=== PATIENT | male | born 1945 | race Caucasian/White ===

== ENCOUNTER → 2016-06-09 | Outpatient (CLI) | payer OTHER | LOC: BHFA 14:30 | PROVIDERS: ATTEND Internal Medicine Interventional Cardiology | DX: I49.1 Atrial premature depolarization (principal); I49.3 Ventricular premature depolarization ==

== ENCOUNTER → 2016-06-28 | Outpatient (CLI) | payer OTHER | LOC: BHFA 11:00 | PROVIDERS: ATTEND Internal Medicine Cardiovascular Disease | DX: R06.02 Shortness of breath (principal) ==

== ENCOUNTER → 2017-06-08 | Outpatient (CLI) | payer OTHER | LOC: BHFA 13:30 | PROVIDERS: ATTEND Internal Medicine Interventional Cardiology | DX: Z01.810 Encounter for preprocedural cardiovascular examination (principal) | CPT/HCPCS: 78452; 93017; A9500; J2785 ==

== ENCOUNTER 2017-06-12 09:33 | Inpatient (IN) | payer OTHER ==
[2017-06-12] MEDS ORDERED: FAMOTIDINE 20 MG TAB PO ONE (09:35)
[2017-06-12] MEDS ORDERED: diphenhydrAMINE 25 MG CAP PO ONE (09:35)
[2017-06-12] MEDS ORDERED: DIAZEPAM 5 MG TAB PO ONE (09:35)
[2017-06-12] MEDS ORDERED: NS 1,000 ML IV ONE (09:35)
[2017-06-12] MEDS ORDERED: ASPIRIN EC 325 MG TAB PO ONE (09:35)
--- NOTE | 2017-06-12 10:06 | CPEKG ---
Heart Rate: 57 RR Interval: 1053 P-R Interval: 204 QRSD Interval: 78 QT Interval: 416 QTC Interval: 405 P [place]: 19 QRS Norman: 63 T Wave [place]: 55 EKG Severity - NORMAL ECG - EKG Impression: SINUS RHYTHM Electronically Signed By: Darrius Alba 12-Jun-2017 15:55:16
[2017-06-12 10:25] LABS: PLATELET COUNT 208 10^3/uL (150-400)
[2017-06-12 10:33] LABS: INR 0.96 (0.83-1.16)
[2017-06-12] MEDS ORDERED: fentaNYL 100 MCG/2 ML INJ ONE (11:01)
[2017-06-12] MEDS ORDERED: LIDOCAINE 1% 300 MG/30 ML SDV ONE (11:01)
[2017-06-12] MEDS ORDERED: MIDAZOLAM 2 MG/2 ML VIAL ONE (11:02)
[2017-06-12] MEDS ORDERED: IOPAMIDOL (ISOVUE-370) 150 ML BTL IV ONE (11:02)
[2017-06-12] MEDS ORDERED: VERAPAMIL 5 MG/2 ML VIAL ONE ×2 (11:03→12:27)
[2017-06-12] MEDS ORDERED: HEPARIN 10,000 UNIT/10 ML MDV (1,000 UNIT/ML) ONE ×3 (11:03→12:29)
--- NOTE | 2017-06-12 11:03 | PDPROPOC ---
Sedation Plan of Care Sedation Plan of Care: vital signs stable, mental status noted, patient educated of risks, benefits, alternatives, patient can tolerate sedation ASA Classification: ASA 2 Planned drugs: fentanyl, midazolam Mallampati Score: Class 1 Mallampati Reference Image: Patient passed 3-3-2 rule?: Yes
--- NOTE | 2017-06-12 11:03 | PDHPUP ---
History & Physical Update H&P update statement: This history and physical update is based on an assessment of the patient which was completed after admission or registration (within 24 hours), but prior to the surgery/procedure. H&P update: H&P reviewed & patient examined, no change in patient's condition since H&P completed
[2017-06-12] MEDS ORDERED: NITROGLYCERIN/D5W 50 MG/250 ML BOTTLE IV ONE (12:10)
[2017-06-12] MEDS ORDERED: SODIUM BICARBONATE 20 MEQ, LIDOCAINE 1% 10 ML in NORMOSOL-R 1,000 ML MISC ONE (12:10)
[2017-06-12] MEDS ORDERED: MANNITOL 25% 12.5 GM/50 ML VIAL IVP ONE (12:10)
[2017-06-12] MEDS ORDERED: NOREPINEPHRINE BITARTRATE 16 MG in NS 250 ML IV ONE (12:10)
[2017-06-12] MEDS ORDERED: MUPIROCIN 2% 22 GM OINT NS ONE ×2 (12:10→12:15)
[2017-06-12] MEDS ORDERED: VANCOMYCIN PHARMACY TO DOSE MISC ONE (12:10)
[2017-06-12] MEDS ORDERED: PROPOFOL/EMULSION 500 MG/50 ML BOTTLE IV ONE (12:10)
[2017-06-12] MEDS ORDERED: VERAPAMIL 5 MG, NITROGLYCERIN 2.5 MG, HEPARIN 500 UNIT, SODIUM BICARBONATE 0.2 MEQ in L... MISC ONE (12:10)
[2017-06-12] MEDS ORDERED: REMIFENTANIL HCL 1 MG VIAL ONE (12:10)
[2017-06-12] MEDS ORDERED: PHENYLEPHRINE HCL 50 MG in NS 250 ML IV ONE (12:10)
[2017-06-12] MEDS ORDERED: INSULIN REGULAR HUMAN 100 UNIT in NS 100 ML IV ONE (12:10)
[2017-06-12] MEDS ORDERED: fentaNYL 250 MCG/5 ML INJ ONE (12:10)
[2017-06-12] MEDS ORDERED: CITRATE DEXTROSE SOLN 500 ML BAG MISC ONE ×2 (12:10→12:30)
[2017-06-12] MEDS ORDERED: TRANEXAMIC ACID 1,000 MG in NS (SYRINGE) 50 ML IV ONE (12:10)
[2017-06-12] MEDS ORDERED: PROTAMINE SULFATE 50 MG/5 ML VIAL IVP ONE (12:24)
[2017-06-12] MEDS ORDERED: CALCIUM CHLORIDE 1 GM/10 ML INJ ONE ×2 (12:24→12:29)
[2017-06-12] MEDS ORDERED: NA BICARBONATE 50 MEQ/50 ML VIAL ONE (12:25)
[2017-06-12] MEDS ORDERED: MILRINONE/DEXTROSE/100 ML BAG IV ONE (12:25)
[2017-06-12] MEDS ORDERED: DOPamine/DEXTROSE/250 ML BAG IV ONE (12:25)
[2017-06-12] MEDS ORDERED: niCARdipine/NACL/200 ML BAG IV ONE (12:26)
[2017-06-12] MEDS ORDERED: ADENOSINE 6 MG/2 ML VIAL ONE (12:26)
[2017-06-12] MEDS ORDERED: ceFAZolin 1 GM VIAL ONE (12:26)
[2017-06-12] MEDS ORDERED: AMIODARONE HCL 150 MG/3 ML VIAL ONE ×2 (12:26→12:29)
[2017-06-12] MEDS ORDERED: PAPAVERINE HCL 60 MG/2 ML SDV ONE (12:27)
[2017-06-12] MEDS ORDERED: ALBUMIN 5% 250 ML BOTTLE IV ONE ×2 (12:28→15:26)
[2017-06-12] MEDS ORDERED: CITRATE DEXTROSE SOLN 500 ML BAG ONE (12:29)
[2017-06-12] MEDS ORDERED: MAGNESIUM SULFATE 1 GM/2 ML VIAL ONE (12:29)
[2017-06-12] MEDS ORDERED: LIDOCAINE 2% 100 MG/5 ML SYR ONE (12:29)
[2017-06-12] MEDS ORDERED: methylPREDNISolone SOD SUCC 1 GM/8 ML VIAL ONE (12:30)
[2017-06-12] MEDS ORDERED: niCARdipine/NACL 200 ML IV SCH ×2 (12:30)
[2017-06-12] MEDS ORDERED: VANCOMYCIN 1.25 GM in D5W 250 ML IV ONE (12:30)
--- NOTE | 2017-06-12 12:42 | PDDXCAT ---
Diagnostic Cath Note - . Date: 06/12/17 Furniture Builder: Gregorio Indication: CCC Class III and IV angina on medical treatment High-risk criteria on non-invasive testing: stress-induced large perfusion defect (particularly if anterior) - Procedure Access: right wrist Procedure: left heart catheterization, coronary angiography, left ventriculogram - Materials Left Heart Cath size: 5F Left Heart Cath materials: pigtail, other (SiteSeer4) - Findings-Left Heart Catheterization LM: Subtotaled proximally LAD: Large vessel extends to the apex giving rise to principal diagonal. No focal stenosis noted. LCX: 2 small obtuse marginal branches. RCA: Dominant: Mild luminal irregularities. EDP: 15 mm of mercury LVEF: 64 Wall motion: Normal Complications: None Estimated blood loss: <50ml Closure method: other (Both sheaths secured in place.) Assessment: Critical left main subtotal occlusion. Retrograde filling of the LAD from the right coronary artery. Preserved LV function. Emergency coronary artery bypass grafting recommended. Surgical consultation obtained on the table. Family informed. Plan: Emergency coronary bypass grafting Intervention: After review of the diagnostic angiograms an intra-aortic balloon pump was placed from the right femoral artery. This is a 50 cc device. Patient Problems: Problems Problem Status Onset Chest pain Acute
[2017-06-12] MEDS ORDERED: HYDROmorphONE/DILAUDID 2 MG/ML INJ ONE (14:46)
[2017-06-12] MEDS ORDERED: DEXMEDETOMIDINE/NS 4MCG/ML 50 ML BTL IV ONE (15:12)
[2017-06-12] MEDS ORDERED: ROCURONIUM 100 MG/10 ML VIAL ONE (15:20)
[2017-06-12] MEDS ORDERED: DEXAMETHASONE 4 MG/ML VIAL ONE (15:20)
[2017-06-12] MEDS ORDERED: SUGAMMADEX SODIUM 200 MG/2 ML VIAL IVP ONE (15:21)
[2017-06-12] MEDS ORDERED: ONDANSETRON 4 MG/2 ML VIAL ONE (15:21)
[2017-06-12] MEDS ORDERED: MAGNESIUM SULF 2 GM/WATER 50 ML BAG IV ONE (15:27)
[2017-06-12] MEDS ORDERED: POLYETHYLENE GLYCOL 3350 17 GM PKT PO PRN (15:52)
[2017-06-12] MEDS ORDERED: CEPACOL LOZENGE PO PRN (15:52)
[2017-06-12] MEDS ORDERED: POTASSIUM Cl (KCl) 50 ML IV PRN (15:52)
[2017-06-12] MEDS ORDERED: ACETAMINOPHEN 650 MG SUPP PR PRN (15:52)
[2017-06-12] MEDS ORDERED: BISACODYL 10 MG SUPP PR PRN (15:52)
[2017-06-12] MEDS ORDERED: ONDANSETRON 4 MG/2 ML VIAL IVP PRN (15:52)
[2017-06-12] MEDS ORDERED: MEPERIDINE 25 MG/ML SYR IVP PRN (15:52)
[2017-06-12] MEDS ORDERED: MAGNESIUM SULF 2 GM/WATER 50 ML IV ONE (15:52)
[2017-06-12] MEDS ORDERED: PANTOPRAZOLE SODIUM 40 MG VIAL IVP ONE (15:52)
[2017-06-12] MEDS ORDERED: LACTULOSE 20 GM/30 ML UDCUP PO PRN (15:52)
[2017-06-12] MEDS ORDERED: fentaNYL 100 MCG/2 ML INJ IVP PRN (15:52)
[2017-06-12] MEDS ORDERED: ONDANSETRON DISINTEGRATING 4 MG TAB PO PRN (15:52)
[2017-06-12] MEDS ORDERED: D50W 25 GM/50 ML SYR IVP PRN (15:52)
[2017-06-12] MEDS ORDERED: MAGNESIUM HYDROXIDE 30 ML UDCUP PO PRN (15:52)
[2017-06-12] MEDS ORDERED: ACETAMINOPHEN 325 MG TAB PO PRN (15:52)
[2017-06-12] MEDS ORDERED: SODIUM CL NASAL 45 ML BTL EACHNARE PRN (15:52)
[2017-06-12] MEDS ORDERED: METOCLOPRAMIDE 10 MG/2 ML VIAL IVP PRN (15:52)
[2017-06-12] MEDS ORDERED: NS 1,000 ML IV SCH (16:00)
[2017-06-12] MEDS ORDERED: INSULIN REGULAR HUMAN 100 UNIT in NS 100 ML IV SCH (16:00)
--- NOTE | 2017-06-12 16:41 | CPEKG ---
Heart Rate: 63 RR Interval: 952 P-R Interval: 256 QRSD Interval: 78 QT Interval: 432 QTC Interval: 443 P [place]: 47 QRS [place]: 84 T Wave [place]: 52 EKG Severity - ABNORMAL ECG - EKG Impression: SINUS RHYTHM EKG Impression: FIRST DEGREE AV BLOCK EKG Impression: BORDERLINE RIGHT AXIS DEVIATION EKG Impression: LOW VOLTAGE IN FRONTAL LEADS EKG Impression: FIRST DEGREE AVB IS NEW IN COMPARISON TO PRIOR ECG Electronically Signed By: Dallas Martinez 14-Jun-2017 12:54:50
[2017-06-12] MEDS: ALBUMIN 5% 250 ML IV PRN ×2 (16:57→17:30)
[2017-06-12] MEDS: VANCOMYCIN HCL/NORMAL SALINE 250 ML IV SCH (17:17)
[2017-06-12] MEDS: SENNOSIDES/DOCUSATE SODIUM TAB PO SCH (21:12)
[2017-06-12] MEDS: MUPIROCIN 2% 22 GM OINT NS SCH (21:14)
--- NOTE | 2017-06-12 22:29 | GOP ---
[f rep st] OPERATIVE REPORT DATE OF OPERATION: 06/12/2017 SURGEON: Jung Orourke DO PBX MANAGER: Rodney Jeter PA-C ANESTHESIOLOGIST: Marisela Pedro MD PREOPERATIVE DIAGNOSIS: 1. Unstable angina pectoris with severe proximal left main stenosis. 2. History of paroxysmal atrial fibrillation, status post catheter ablation. POSTOPERATIVE DIAGNOSIS: 1. Unstable angina pectoris with severe proximal left main stenosis. 2. History of paroxysmal atrial fibrillation, status post catheter ablation. PROCEDURE PERFORMED: 1. Emergent coronary bypass grafting x2 with left internal mammary artery to the left anterior desce nding, saphenous vein graft to the diagonal. 2. Ligation left atrial appendage with a 45 mm atrial clip. 3. Pulmonary vein ablation with radiofrequency. FINDINGS: The patient had a persistent ongoing anterior chest pain with a markedly abnormal nuclear study. He underwent diagnostic catheterization today, at which time he was noted to have subtotal oc clusion of the proximal LAD at its origin with a 99.9% lesion. He had some collaterals from the rig t. He was having ongoing chest pain in the slab off mill tender. A balloon pump was placed. He had a history o f previous ablation for paroxysmal atrial fibrillation and had been complaining of palpitations over the last several years. He was taken emergently to the operating room with the 's verbal permiss ion from the slab off mill tender, at which point he was hemodynamically stable but having ongoing chest pain gricel pite the balloon pump. DESCRIPTION OF PROCEDURE: He was intubated. Monitoring lines were placed. He was prepped and drape d in sterile classical manner. Sternotomy was performed. The vein was harvested open from the left ankle. The vein was 3.5 mm and good quality. Mammary was a 2 mm vessel with brisk flow. He was the n heparinized, cannulated in the standard fashion. Cardiopulmonary bypass was begun. Cardioplegic a rrest was performed, initially with antegrade cardioplegia. However, the anterior wall continued to fibrillate and felt warm to the touch, and for that reason, a retrograde catheter was placed for caesar tional retrograde cardioplegia, due to the high-grade proximal left main stenosis. We then grafted the vein graft to a 2.7 mm diagonal branch with proximal anastomosis completed to the ascending aorta with additional cardioplegia administered antegrade. We then placed a moderate-size d mammary with brisk flow to a big LAD in the midportion, which was tacked to the epicardium. I then placed an atrial clip across the base of the left atrial appendage measuring 45 mm. I then repeated pulmonary vein ablation, although the patient had previous catheter ablation; the known transmuralit y of that procedure is less than 20%. For that reason, I felt that we should at least do a completio n of pulmonary vein ablation. I entertained doing a full Mitchell Maze-4 procedure. However, given the e mergent nature of his intervention and inability to discuss it with the patient, I elected just to do a pulmonary vein ablation. The cross-clamp was removed with suction on the ascending aortic vent. Spontaneous cardiac activity was noted to resume. The patient was easily weaned from bypass. The heparin was reversed with prota mine. The cannula was removed and oversewn. One mediastinal drain and 1 left pleural drain were eh demi. The thymic fat and pericardium were closed. Chest was closed in standard fashion. The patient was returned to ICU in stable condition. /[id number]/MODL
[2017-06-13] MEDS: VANCOMYCIN HCL/NORMAL SALINE 250 ML IV SCH ×2 (04:09→16:59)
[2017-06-13 06:07] LABS: PLATELET COUNT 119 10^3/uL (150-400)
--- NOTE | 2017-06-13 06:39 | SOAPPROG ---
SOAP Progress Note Assessment/Plan: POD #1: prophylactic RFA IABP placement, emergent CABGx2 (RUBIN-LAD, SVG-D1), radiofrequency ablation of bilateral pulmonary veins, open vein harvest LLE, AtriClip ANDREA Unstable angina/severe left main stenosis s/p emergent CABGx2 - RFA IABP removed this AM without difficulty - Mejia catheter out, tubes to remain on suction for air leak, PW to be capped - BB/ASA/statin when appropriate - SCDs/heparin SQ for DVT prophylaxis - PT/OT - Transfer to PCU once IABP mobility restrictions lifted h/o paroxysmal atrial fibrillation with remote ablations and frequent PVCs/PACs s/p RF ablation of BL pulmonary veins - Will restart prn sotalol and scheduled IV magnesium in the next day or two Acute blood loss anemia - Stable without the need for BP transfusions Subjective: Pain well-controlled. Denies SOB. Thirsty. Objective: Vital Signs Temp Pulse Resp BP Pulse Ox 37 C 72 18 132/54 H 99 06/13/17 04:00 06/13/17 06:00 06/13/17 06:00 06/13/17 06:00 06/13/17 06:00 Laboratory Results 06/13/17 05:55 06/12/17 06/13/17 06/14/17 05:59 05:59 05:59 Intake Total 1388.7 Output Total 2014 Balance -626.3 PT 13.0 SEC (12.0-15.0) 06/12/17 10:12 INR 0.96 (0.83-1.16) 06/12/17 10:12 Physical Exam - Physical Exam General Appearance: WD/WN, alert, no apparent distress EENT: No scleral icterus (R), No scleral icterus (L) Neck: normal inspection Respiratory: No respiratory distress Cardiac/Chest: regular rate, rhythm, extra beats Abdomen: non-tender, soft, No distended Skin: normal color, warm/dry Extremities: No pedal edema Neuro/Psych: no motor/sensory deficits, alert, normal mood/affect, oriented x 3 ICD10 Worksheet Patient Problems: Problems Problem Status Onset Acute blood loss anemia Acute CAD in [place] artery Acute S/P CABG x 2 Acute ~06/12/17 chronic disease mgmt/transitional care Acute Chest pain Acute
[2017-06-13] MEDS: HEPARIN 5,000 UNIT/0.5 ML SYR SC SCH ×3 (08:45→22:30)
[2017-06-13] MEDS ORDERED: KETOROLAC 15 MG/1 ML SDV IVP ONE ×2 (10:43→19:20)
--- NOTE | 2017-06-13 11:09 | POSTANESTH ---
Post Anesthetic Evaluation Cardiovascular Status: Normal, Stable Respiratory Status: Normal, Stable Level of Consciousness/Mental Status: Can Participate in Eval Pain Control: Adequate, Prn Tx Ordered Nausea/Vomiting Control: Adequate, Prn Tx Ordered Complications Possibly Related to Anesthesia: None Noted
--- NOTE | 2017-06-13 12:04 | ASMTCMCOM ---
CM Note CM Note Notes: Patient is POD #1 emergent CABG x2. He is stable and recovering in the ICU. He has transfer orders for the PCU. Patient lives independently with . PT/OT have been ordered. CM will follow for discharge needs. Current CM Discharge plan: TBD Date Signed: 06/13/2017 12:04 PM Electronically Signed By:Enedina Arceo RN
[2017-06-13] MEDS: MUPIROCIN 2% 22 GM OINT NS SCH ×2 (13:35→22:32)
[2017-06-13] MEDS: PANTOPRAZOLE SODIUM 40 MG TAB PO SCH (15:12)
[2017-06-13] MEDS: ASPIRIN 81 MG CHEWABLE TAB PO SCH (15:12)
[2017-06-13] MEDS: SENNOSIDES/DOCUSATE SODIUM TAB PO SCH ×2 (15:12→22:29)
[2017-06-13 15:35] LABS: PLATELET COUNT 134 10^3/uL (150-400)
[2017-06-13] MEDS: METOPROLOL TARTRATE 25 MG TAB PO SCH (22:30)
[2017-06-14] MEDS: HYDROCODONE/APAP 5/325 TAB PO PRN ×4 (00:24→22:21)
[2017-06-14] MEDS: traMADol 50 MG TAB PO PRN ×2 (03:27→12:42)
[2017-06-14 06:09] LABS: PLATELET COUNT 108 10^3/uL (150-400)
--- NOTE | 2017-06-14 06:58 | SOAPPROG ---
SOAP Progress Note Assessment/Plan: Assessment: POD#1 Emergent CABGx2 (RUBIN-LAD, SVG-D1), open vein harvest left ankle, bipolar RF ablation of bilat pulmonary veins, AtriClip lig ANDREA Sx CAD with severe prox LM stenosis - Prophylactic RFA IABP prior to emergent CABGx2. Nondominant LCX in communication with LAD and not bypassed. Hemodynamically stable early postop course. IABP removed POD#1. Secondary prevention with ASA, BB and statin. Postoperative left PTX - Small volume. Suspected pleural gabe likely to seal within 72h. Conservative management for now. Hx PAF and freq PVCs with recurrence s/p remote ablations for both - PVI done. Chronic prn sotalol to resume. 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 Acute expected blood loss anemia - Stable. No transfusions required. Spinal stenosis - Cervical stenoses with myelopathy, anticipating multilevel fusion when recovered from cardiac surgery. Lumbar stenoses with neurogenic claudication. 1 block ambulatory capacity. May require IPR. Plan: Keep CTs to suction at all times. Consider pigtail cath in am if lung subtotally expanded. NS @ 125 ml/h x 1 liter. Cont metop titrate 12.5 mg BID. Inc activity as tolerated. 06/14/17 07:04 Subjective: Doing ok. Satisfactory analgesia. Anxious about PVCs and mg suppl. Objective: Vital Signs Temp Pulse Resp BP Pulse Ox 36.4 C 70 16 124/70 H 93 06/14/17 04:00 06/14/17 04:00 06/14/17 04:00 06/14/17 04:00 06/14/17 04:00 Laboratory Results 06/14/17 05:50 06/14/17 05:50 06/13/17 06/14/17 06/15/17 05:59 05:59 05:59 Intake Total 1388.7 890 Output Total 2014 900 Balance -626.3 -10 PT 13.0 SEC (12.0-15.0) 06/12/17 10:12 INR 0.96 (0.83-1.16) 06/12/17 10:12 SR with PVCs and PACs. SBP 110s-120s. Balanced I/Os. Somewhat meager UOP. CXR -> persistent small volume left PTX. INR up slightly, likely sec toradol and relative hypotension. Physical Exam - Physical Exam General Appearance: alert, no apparent distress, anxiety (about multiple chronic medical conditions and impact on postop recovery) Respiratory: decreased breath sounds (left apex), crackles (bases), other ( blakes x 2 y-d to pleurovac, serosang drainage, no tidal, no air leak) Cardiac/Chest: regular rate, rhythm, other (Sternotomy and LLE venotomy CDI. Vwires intact.) Abdomen: non-tender, soft Skin: warm/dry Extremities: swelling (trace) ICD10 Worksheet Patient Problems: Problems Problem Status Onset Acute blood loss anemia Acute CAD in [place] artery Acute S/P CABG x 2 Acute ~06/12/17 S/P ablation of atrial fibrillation Acute chronic disease mgmt/transitional care Acute Chest pain Acute
[2017-06-14] MEDS: HEPARIN 5,000 UNIT/0.5 ML SYR SC SCH ×3 (07:28→22:23)
[2017-06-14] MEDS: NS 1,000 ML IV SCH ×2 (07:28→15:15)
[2017-06-14] MEDS: SENNOSIDES/DOCUSATE SODIUM TAB PO SCH ×2 (08:00→22:22)
[2017-06-14] MEDS: ASPIRIN 81 MG CHEWABLE TAB PO SCH (08:00)
[2017-06-14] MEDS: MUPIROCIN 2% 22 GM OINT NS SCH (08:00)
[2017-06-14] MEDS: PANTOPRAZOLE SODIUM 40 MG TAB PO SCH (08:01)
[2017-06-14] MEDS: METOPROLOL TARTRATE 25 MG TAB PO SCH ×2 (08:01→22:22)
--- NOTE | 2017-06-14 12:06 | ASMTCMCOM ---
CM Note CM Note Notes: Therapies are recommending inpatient rehab. CM spoke w/ Nga Bro. Nga will see what therapies are recommending today. Pt is being followed by transitional care. CM to follow. Plan: TBD Date Signed: 06/14/2017 12:05 PM Electronically Signed By:NED Colunga
[2017-06-15] MEDS: HEPARIN 5,000 UNIT/0.5 ML SYR SC SCH ×3 (06:03→21:25)
[2017-06-15] MEDS: HYDROCODONE/APAP 5/325 TAB PO PRN (06:03)
--- NOTE | 2017-06-15 06:49 | SOAPPROG ---
SOAP Progress Note Assessment/Plan: Assessment: POD#3 Emergent CABGx2 (RUBIN-LAD, SVG-D1), open vein harvest left ankle, bipolar RF ablation of bilat pulmonary veins, AtriClip lig ANDREA Sx CAD with severe prox LM stenosis - Prophylactic RFA IABP prior to emergent CABGx2. Nondominant LCX in communication with LAD and not bypassed. Hemodynamically stable early postop course. IABP removed POD#1. Secondary prevention with ASA, BB and statin. Postoperative left PTX - Small volume. Suspected pleural gabe likely to seal within 72h. Conservative management for now. Hx PAF and freq PVCs with recurrence s/p remote ablations for both - PVI done. Postop rhythm sinus with occ PACs and PVCs. AF prophylaxis with BB. Chronic prn sotalol discontinued. 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 Q4 day regimen resumed. Acute expected blood loss anemia - Stable. No transfusions required. Spinal stenosis - Cervical stenoses with myelopathy, anticipating multilevel fusion when recovered from cardiac surgery. Lumbar stenoses with neurogenic claudication. 1 block ambulatory capacity. May require IPR or SNF. Plan: CT clamping trial. Cont metop titrate 12.5 mg BID. Begin BID daily diuresis if Cr ok. Wean O2. Inc activity as tolerated. Dispo - Await IPR eval. Anticipate release from hospital next 2-3 days. 06/15/17 06:47 Subjective: Doing ok. Mobility limited by back and tube pain. Adequate analgesia alt [place] and tramadol. Objective: Vital Signs Temp Pulse Resp BP Pulse Ox 36.4 C 77 18 129/75 H 98 06/15/17 04:00 06/15/17 04:00 06/15/17 04:00 06/15/17 04:00 06/15/17 04:00 Laboratory Results 06/14/17 05:50 06/14/17 06/15/17 06/16/17 05:59 05:59 05:59 Intake Total 890 2650 Output Total 1050 1560 Balance -160 1090 PT 13.0 SEC (12.0-15.0) 06/12/17 10:12 INR 0.96 (0.83-1.16) 06/12/17 10:12 Holding SR and MAPs > 70. Seemingly less ectopy. Almost off O2. CXR-> Min pulm vasc congestion, crisp rt costophrenic angle, slightly smaller left apical PTX. CTOP at removal criteria. Positive fluid balance. +9 kg overall. BMP pending. Physical Exam - Physical Exam General Appearance: alert, no apparent distress Respiratory: lungs clear (grossly), other (blakes x 2 y-d to pleurovac, serosang drainage, no tidal, no air leak; CTs clamped at skin.) Cardiac/Chest: regular rate, rhythm, other (Sternotomy and LLE venotomy CDI.) Abdomen: non-tender, soft Skin: warm/dry Extremities: swelling (trace RLE, 1+ LLE) ICD10 Worksheet Patient Problems: Problems Problem Status Onset Acute blood loss anemia Acute CAD in [place] artery Acute S/P CABG x 2 Acute ~06/12/17 S/P ablation of atrial fibrillation Acute chronic disease mgmt/transitional care Acute Chest pain Acute
[2017-06-15] MEDS: PANTOPRAZOLE SODIUM 40 MG TAB PO SCH (07:53)
[2017-06-15] MEDS: SENNOSIDES/DOCUSATE SODIUM TAB PO SCH ×2 (07:53→21:24)
[2017-06-15] MEDS: METOPROLOL TARTRATE 25 MG TAB PO SCH ×2 (07:54→21:25)
[2017-06-15] MEDS: ASPIRIN 81 MG CHEWABLE TAB PO SCH (07:54)
[2017-06-15] MEDS: FUROSEMIDE 40 MG TAB PO SCH ×2 (09:09→14:59)
[2017-06-15] MEDS: POTASSIUM CL 20 MEQ TAB PO SCH ×2 (09:09→21:25)
[2017-06-15] MEDS: traMADol 50 MG TAB PO PRN ×2 (10:48→15:00)
--- NOTE | 2017-06-15 14:23 | ASMTCMCOM ---
CM Note CM Note Notes: 06/15/2017 Case Management Note Met w/pt and family member to discuss d/c needs. Inpatient rehab has declined pt. Discussed need for SNF. Family prefers Home Care but agreed to referrals to [facility], [facility] and [facility]. Notified [facility] of possible home care referral. Case Management d/c poc: SNF vs [facility] pending pt progress. Case Management to follow. Date Signed: 06/15/2017 02:22 PM Electronically Signed By:Yokasta Ramos RN
[2017-06-15] MEDS ORDERED: METOPROLOL TARTRATE 25 MG TAB PO ONE (16:45)
[2017-06-15] MEDS ORDERED: AMIODARONE HCL 100 ML IV ONE (18:04)
[2017-06-15] MEDS ORDERED: AMIODARONE HCL 200 ML IV ONE (18:38)
[2017-06-16] MEDS ORDERED: AMIODARONE HCL 540 MG in D5W 300 ML IV ONE (01:00)
[2017-06-16] MEDS: HYDROCODONE/APAP 5/325 TAB PO PRN ×2 (01:13→22:22)
[2017-06-16] MEDS: traMADol 50 MG TAB PO PRN ×2 (06:35→12:14)
[2017-06-16] MEDS: HEPARIN 5,000 UNIT/0.5 ML SYR SC SCH (06:36)
[2017-06-16] MEDS ORDERED: POTASSIUM CL 20 MEQ TAB PO ONE (08:04)
--- NOTE | 2017-06-16 08:09 | SOAPPROG ---
SOAP Progress Note Assessment/Plan: Assessment: POD#4 Emergent CABGx2 (RUBIN-LAD, SVG-D1), open vein harvest left ankle, bipolar RF ablation of bilat pulmonary veins, AtriClip lig ANDREA Sx CAD with severe prox LM stenosis - Prophylactic RFA IABP prior to emergent CABGx2. Nondominant LCX in communication with LAD and not bypassed. Hemodynamically stable early postop course. IABP removed POD#1. Fairly sig volume overload well tolerated. Secondary prevention with ASA, BB and statin. Postoperative left PTX - Small volume. Suspected pleural gabe appears to have sealed with conservative management. Hx PAF and freq PVCs with recurrence s/p remote ablations for both - CoxMaze IV considered, but only PVI done d/t emergent nature of case. Early postop rhythm sinus with occ PACs and PVCs. Onset of AT/Afl last noc with improved rate control on Amio and uptitrated BB. AF/fl this am and started on Eliquis. Cards to be consulted for assistance with med management, ? DC CVSN. 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 Q4 day regimen resumed. Acute expected blood loss anemia - Stable. No transfusions required. Spinal stenosis - Cervical stenoses with myelopathy, anticipating multilevel fusion when recovered from cardiac surgery. Lumbar stenoses with neurogenic claudication. 1 block ambulatory capacity. Turned down by IPR. PT skilling for SNF vs [facility] underway. Plan: Remove CTs. Cont metop titrate 25 mg BID. Transition to oral amio tonight. Relax diuresis. Replete K. Wean O2. Inc activity as tolerated. Dispo - Anticipate discharge Mon if rhythm stable. SNF vs Home with [facility]. 06/16/17 08:06 Subjective: In good spirits despite limited rest last night. Aware of heart racing. Pleased that rates slowed and no longer as "exhausted". No pleuritic pain or inc WOB. Deliberating value of going to group home rather than home. Leaning to SNF. Objective: Vital Signs Temp Pulse Resp BP Pulse Ox 36.6 C 126 H 25 H 108/75 95 06/16/17 07:38 06/16/17 07:38 06/16/17 07:38 06/16/17 07:38 06/16/17 07:38 Laboratory Results 06/14/17 05:50 06/16/17 06:00 06/15/17 06/16/17 06/17/17 05:59 05:59 05:59 Intake Total 2650 1482 Output Total 1560 3325 300 Balance 1090 -1843 -300 PT 13.0 SEC (12.0-15.0) 06/12/17 10:12 INR 0.96 (0.83-1.16) 06/12/17 10:12 AT/flutter/fib persistent since late afternoon yest. Good response to amio bolus and gtt cont as per protocol. Sufficient BP to uptitrate BB. Stable suppl O2 req. CXR-> stable left apical PTX with tubes clamped. Vigorous diuresis with BID lasix. K as expected. - Pending Discharge Pending Discharge Within 48 Hours: Yes Pending Discharge Date: 06/18/17 Pending Discharge Time: 11:00 Physical Exam - Physical Exam General Appearance: alert, no apparent distress Respiratory: lungs clear (grossly), other (blakes x 2 clamped at skin; no looney of air or fluid with clamp release; tubes removed without incident.) Cardiac/Chest: regular rate, rhythm, tachycardia, other (Sternum grossly stable. Sternotomy and LLE venotomy CDI. Vwires intact.) Abdomen: non-tender, soft Skin: warm/dry Extremities: swelling (1+ dependent, donor leg only) ICD10 Worksheet Patient Problems: Problems Problem Status Onset Acute blood loss anemia Acute CAD in [place] artery Acute S/P CABG x 2 Acute ~06/12/17 S/P ablation of atrial fibrillation Acute chronic disease mgmt/transitional care Acute Chest pain Acute
[2017-06-16] MEDS ORDERED: DEXTROSE IV SCH (09:00)
[2017-06-16] MEDS ORDERED: MAGNESIUM SULFATE IV SCH (09:00)
--- NOTE | 2017-06-16 10:03 | PDCARPN ---
Cardiology Progress Note Chief Complaint: No cardiovascular complaints at present. Assessment/Plan: Assessment: Patient is a 71 y/o male, well known to [facility] [employer], who is now POD# 4 for 2V CABG after abnormal preoperative MPI led to angiography with notable LM stenosis. Patient with history of atrial fib and PVC [place] and post operatively, the patient has had bigeminy, trigeminy, and atrial fib/flutter. Patient had been on Sotalol PRN pre operatively (and has not had this therapy for some time). CT surgery with questions about antiarrhythmic options given (a) ablation history, (b) antiarrhythmic history, and (c) post operative state. At present, the patient is doing well, sitting up in chair, eating breakfast. No complaints of chest pains (outside of that which is expected for POD#4 CABG). No PND or orthopnea. No dyspnea or dizziness. Telemetry at present with atrial flutter (2:1) and occasional PVCs. Patient states that he tolerates the fast rates, but not the irregularities from the ventricular ectopy. Plan: (1) Would continue amiodarone for assistance with suppression of the noted rhythms (both PVCs and the atrial fib/flutter) (2) Beta blockers are also on board, but according to the patient, historically have not been well tolerated (3) Would encourage IS use for pulmonary as well as cardio (4) Cardiac rehab arrangements Subjective: No cardiovascular complaints voiced. Reviewed/Discussed With: hospitalist, multidisciplinary team Objective: Vital Signs (8 Hrs) Temp Pulse Resp BP Pulse Ox 06/16/17 07:38 36.6 C 126 H 25 H 108/75 95 06/16/17 04:00 36.8 C 120 H 18 97/67 L 94 Intake/Output (24 Hrs) 06/15/17 06/16/17 06/17/17 05:59 05:59 05:59 Intake Total 2650 1482 Output Total 1560 3325 300 Balance 1090 -1843 -300 Intake: Oral (ml) 1500 1200 IV Infused (ml) 1150 282 Amiodarone HCl 540 mg In 282 D5w 300 ml @ 16.667 mls/ hr IV ONCE ONE Rx#: [id number] Ns 1,000 ml @ 125 mls/hr 1150 IV CONT JOSE M Rx#: [id number] Output: Urine (ml) 1350 3325 300 Urinal 1350 3325 300 Chest Tube Output (ml) 210 Location 1 110 Location 2 100 Other: Weight 89.9 kg 92.5 kg 90.1 kg Result Diagrams: 06/14/17 05:50 06/16/17 06:00 Telemetry: atrial flutter with rates of 125 bpm - Physical Exam Constitutional: WDWN, healthy appearing, no apparent distress Eyes: PERRL, EOMI Ears, Nose, Mouth, Throat: moist mucous membranes Cardiovascular: other (tachycardia), No no murmurs, No jugular vein distention Peripheral Pulses: 2+: dorsalis-pedis (R), dorsalis-pedis (L) Respiratory: clear to auscultate bilat, reduced air movement Gastrointestinal: normoactive bowel sounds Skin: no rashes, no edema Musculoskeletal: no muscular tenderness Neurologic: AAOx3, CN II-XII grossly intact Psychiatric: cooperative, interactive, following commands ICD10 Worksheet Patient Problems: Problems Problem Status Onset Acute blood loss anemia Acute CAD in [place] artery Acute S/P CABG x 2 Acute ~06/12/17 S/P ablation of atrial fibrillation Acute chronic disease mgmt/transitional care Acute Chest pain Acute
[2017-06-16] MEDS: ASPIRIN 81 MG CHEWABLE TAB PO SCH (10:10)
[2017-06-16] MEDS: PANTOPRAZOLE SODIUM 40 MG TAB PO SCH (10:11)
[2017-06-16] MEDS: MULTIVITAMINS 1 EACH TAB PO SCH (10:11)
[2017-06-16] MEDS: SENNOSIDES/DOCUSATE SODIUM TAB PO SCH ×2 (10:12→20:19)
[2017-06-16] MEDS: METOPROLOL TARTRATE 25 MG TAB PO SCH ×2 (10:21→20:19)
[2017-06-16] MEDS: APIXABAN 2.5 MG TAB PO SCH ×2 (10:22→20:19)
[2017-06-16] MEDS: AMIODARONE HCL 200 MG TAB PO SCH (20:19)
[2017-06-16] MEDS ORDERED: AMIODARONE HCL 100 ML IV ONE (22:54)
[2017-06-16] MEDS ORDERED: METOPROLOL TARTRATE 50 MG TAB PO ONE (22:56)
--- NOTE | 2017-06-17 08:17 | SOAPPROG ---
SOAP Progress Note Assessment/Plan: Assessment: POD#5 Emergent CABGx2 (RUBIN-LAD, SVG-D1), open vein harvest left ankle, bipolar RF ablation of bilat pulmonary veins, AtriClip lig ANDREA Sx CAD with severe prox LM stenosis - Prophylactic RFA IABP prior to emergent CABGx2. Nondominant LCX in communication with LAD and not bypassed. Hemodynamically stable early postop course. IABP removed POD#1. Fairly sig volume overload well tolerated. CTs out. Secondary prevention with ASA, BB and statin. Postoperative left PTX - Small volume. Suspected pleural gabe appears to have sealed with conservative management. CTs out yest without incident. Hx PAF and freq PVCs with recurrence s/p remote ablations for both - CoxMaze IV considered, but only PVI done d/t emergent nature of case. Early postop rhythm sinus with occ PACs and PVCs. Onset of AT/Afl POD#3 with improved rate control on Amio and uptitrated BB. AF/fl yest am and started on Eliquis. Cards consulted for assistance with med management. Recurrent Afl overnoc. DC CVSN being considered. 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 Q4 day regimen resumed. Acute expected blood loss anemia - Stable. No transfusions required. Spinal stenosis - Cervical stenoses with myelopathy, anticipating multilevel fusion when recovered from cardiac surgery. Lumbar stenoses with neurogenic claudication. 1 block ambulatory capacity. Turned down by IPR. Skilled for SNF by PT. Plan: Remove Vwires. Inc metop titrate to 50 mg BID. Cont amio 200 mg BID. Cont eliquis 2.5 mg BID. Cards to eval for DC CVSN. Inc activity as tolerated. Dispo - Anticipate discharge to SNF ([facility] vs [facility]) Tue if rhythm stable. 06/17/17 08:16 Subjective: Doing ok. Not as fatigued in flutter as when in afib. Satisfactory analgesia. Having a little congestion in rt lung and requests guaifenesin. Objective: Vital Signs Temp Pulse Resp BP Pulse Ox 36.7 C 125 H 20 112/81 H 97 06/17/17 07:25 06/17/17 07:25 06/17/17 07:25 06/17/17 07:25 06/17/17 07:25 Laboratory Results 06/16/17 09:55 06/16/17 06:00 06/16/17 06/17/17 06/18/17 05:59 05:59 05:59 Intake Total 1482 2350 Output Total 3325 1450 100 Balance -1843 900 -100 PT 13.0 SEC (12.0-15.0) 06/12/17 10:12 INR 0.96 (0.83-1.16) 06/12/17 10:12 Persistent Aflutter overnoc, resistant to extra BB. No hypotension. Almost off O2. CXR -> decr size of left apical PTX. Adequate diuresis. Wt dropping appropriately. - Pending Discharge Pending Discharge Within 48 Hours: Yes Pending Discharge Date: 06/19/17 Pending Discharge Time: 11:00 Physical Exam - Physical Exam General Appearance: alert, no apparent distress Respiratory: lungs clear (grossly), other (CT sites clean and dry) Cardiac/Chest: regular rate, rhythm, tachycardia, friction rub, other ( Sternotomy and LLE venotomy CDI. Vwire intact.) Abdomen: non-tender, soft Skin: warm/dry Extremities: swelling (trace donor leg) ICD10 Worksheet Patient Problems: Problems Problem Status Onset Acute blood loss anemia Acute CAD in [place] artery Acute S/P CABG x 2 Acute ~06/12/17 S/P ablation of atrial fibrillation Acute chronic disease mgmt/transitional care Acute Chest pain Acute
[2017-06-17] MEDS ORDERED: SENNOSIDES/DOCUSATE SODIUM TAB PO PRN (09:00)
[2017-06-17] MEDS ORDERED: POTASSIUM CL 20 MEQ TAB PO ONE (09:00)
[2017-06-17] MEDS: ASPIRIN 81 MG CHEWABLE TAB PO SCH (09:04)
[2017-06-17] MEDS: MULTIVITAMINS 1 EACH TAB PO SCH (09:04)
[2017-06-17] MEDS: METOPROLOL TARTRATE 50 MG TAB PO SCH ×2 (09:04→21:30)
[2017-06-17] MEDS: PANTOPRAZOLE SODIUM 40 MG TAB PO SCH (09:04)
[2017-06-17] MEDS: APIXABAN 2.5 MG TAB PO SCH ×2 (09:04→21:30)
[2017-06-17] MEDS: AMIODARONE HCL 200 MG TAB PO SCH ×2 (09:04→21:29)
[2017-06-17] MEDS: METOPROLOL TARTRATE 5 MG/5 ML INJ IVP SCH ×3 (09:48→10:02)
--- NOTE | 2017-06-17 11:02 | PDCARPN ---
Cardiology Progress Note Assessment/Plan: Persistent Postoperative Atrial Flutter: Still with rapid ventricular response; loaded with intravenous amiodarone, now on 200 mg PO BID; receiving additional intravenous metoprolol today. - DARIAN/cardioversion tomorrow. - Continue systemic anticoagulation with Eliquis. Coronary Artery Disease: CAD discovered via cardiac risk assessment workup in anticipation of cervical spine surgery; cath revealed severe proximal left main stenosis. - s/p CABG to LAD and RCA. - Aggressive secondary prevention; LDL 122 prior to cath; will discuss statin. 06/17/17 10:59 Subjective: Feels rapid HR. Fatifued. Objective: Vital Signs (8 Hrs) Temp Pulse Resp BP Pulse Ox 06/17/17 10:06 90 106/77 06/17/17 10:02 100 102/78 06/17/17 09:57 104 H 107/70 06/17/17 09:48 117 H 109/78 06/17/17 09:04 125 H 117/80 06/17/17 07:25 36.7 C 125 H 20 112/81 H 97 06/17/17 04:00 36.6 C 124 H 16 125/81 H 96 Intake/Output (24 Hrs) 06/16/17 06/17/17 06/18/17 05:59 05:59 05:59 Intake Total 1482 2350 Output Total 3325 1450 100 Balance -1843 900 -100 Intake: Oral (ml) 1200 2150 IV Infused (ml) 282 200 Amiodarone HCl 540 mg In 282 200 D5w 300 ml @ 16.667 mls/ hr IV ONCE ONE Rx#: [id number] Output: Urine (ml) 3325 1450 100 Bedside Commode 100 Urinal 3325 1450 Other: Weight 92.5 kg 90.1 kg 89.7 kg Number of Voids Bedside Commode 1 Number of Stools Bedside Commode 1 Result Diagrams: 06/16/17 09:55 06/16/17 06:00 - Physical Exam Constitutional: no apparent distress Eyes: anicteric sclera Ears, Nose, Mouth, Throat: moist mucous membranes Cardiovascular: other (tachycardic regular rhythm) Respiratory: clear to auscultate bilat Gastrointestinal: normoactive bowel sounds, no tenderness, no masses Skin: no edema Neurologic: AAOx3 Psychiatric: not anxious ICD10 Worksheet Patient Problems: Problems Problem Status Onset Acute blood loss anemia Acute CAD in [place] artery Acute S/P CABG x 2 Acute ~06/12/17 S/P ablation of atrial fibrillation Acute chronic disease mgmt/transitional care Acute Chest pain Acute
--- NOTE | 2017-06-17 15:05 | ASMTCMCOM ---
CM Note CM Note Notes: Spoke with MD regarding dc poc & SNFs that are currently willing to accept pt; MD would prefer for pt to dc to [facility] when medically stable. Confirmed [facility] is willing to accept. Spoke with pt & his , Clare ([phone]); Clare in agreement for pt to dc to [facility], but would like to make the decision closer to the time of dc. Clare & pt also considering pt returning home w/Outpatient Cardiac Rehab support. Updated RN. CM will continue to follow. Date Signed: 06/17/2017 03:04 PM Electronically Signed By:Yessica Stephens RN
[2017-06-17] MEDS ORDERED: MAGNESIUM SULF 1 GM/DEXTROSE 100 ML IV ONE (15:30)
[2017-06-17] MEDS: guaiFENesin 600 MG TAB.ER PO PRN (16:09)
[2017-06-17] MEDS: traMADol 50 MG TAB PO PRN (17:27)
--- NOTE | 2017-06-17 18:43 | CPEKG ---
Heart Rate: 128 RR Interval: 469 QRSD Interval: 84 QT Interval: 324 QTC Interval: 473 QRS [place]: 70 T Wave [place]: 28 EKG Severity - ABNORMAL ECG - EKG Impression: supraventricular tachycardia EKG Impression: MINIMAL ST DEPRESSION, INFERIOR LEADS Electronically Signed By: Rodger Maradiaga 18-Jun-2017 07:49:56
[2017-06-17] MEDS: HYDROCODONE/APAP 5/325 TAB PO PRN (23:24)
[2017-06-18] MEDS: guaiFENesin 600 MG TAB.ER PO PRN (06:20)
--- NOTE | 2017-06-18 07:35 | SOAPPROG ---
SOAP Progress Note Assessment/Plan: POD #6: prophylactic RFA IABP placement, emergent CABGx2 (RUBIN-LAD, SVG-D1), radiofrequency ablation of bilateral pulmonary veins, open vein harvest LLE, AtriClip ANDREA Unstable angina/severe left main stenosis s/p emergent CABGx2 - BB/ASA for secondary prevention - SCDs/Eliquis for DVT prophylaxis - PT/OT h/o paroxysmal atrial fibrillation with remote ablations and frequent PVCs/PACs s/p RF ablation of BL pulmonary veins with post-operative atrial flutter - Cardioversion planned for this morning - Continue BB/amiodarone/Eliquis Acute blood loss anemia - Stable without the need for BP transfusions PTX, left - Resolved h/o cervical spinal stenosis - Plan for surgery once recovered from open heart surgery, approximately 6-8 weeks Disposition - Plan for home with services this afternoon 06/18/17 08:25 Subjective: Feels well this morning. Looking forward to getting out of hospital later today. would like to take him home with PT services. Objective: Vital Signs Temp Pulse Resp BP Pulse Ox 36.4 C 98 16 103/78 97 06/18/17 05:00 06/18/17 05:00 06/18/17 05:00 06/18/17 05:00 06/18/17 05:00 Laboratory Results 06/16/17 09:55 06/18/17 06:15 06/17/17 06/18/17 06/19/17 05:59 05:59 05:59 Intake Total 2350 1860 Output Total 1450 550 Balance 900 1310 PT 13.0 SEC (12.0-15.0) 06/12/17 10:12 INR 0.96 (0.83-1.16) 06/12/17 10:12 Physical Exam - Physical Exam General Appearance: WD/WN, alert, no apparent distress EENT: No scleral icterus (R), No scleral icterus (L) Neck: normal inspection Respiratory: No respiratory distress Cardiac/Chest: tachycardia Abdomen: non-tender, soft, No distended Skin: normal color, warm/dry Extremities: No pedal edema Neuro/Psych: no motor/sensory deficits, alert, normal mood/affect, oriented x 3 ICD10 Worksheet Patient Problems: Problems Problem Status Onset Acute blood loss anemia Acute CAD in [place] artery Acute S/P CABG x 2 Acute ~06/12/17 S/P ablation of atrial fibrillation Acute chronic disease mgmt/transitional care Acute Chest pain Acute
--- NOTE | 2017-06-18 08:21 | CPEKG ---
Heart Rate: 125 RR Interval: 480 QRSD Interval: 70 QT Interval: 332 QTC Interval: 479 QRS [place]: 86 T Wave [place]: 38 EKG Severity - ABNORMAL ECG - EKG Impression: VENTRICULAR PREMATURE COMPLEX EKG Impression: BORDERLINE RIGHT AXIS DEVIATION EKG Impression: LOW VOLTAGE IN FRONTAL LEADS EKG Impression: MINIMAL ST DEPRESSION, INFERIOR LEADS EKG Impression: Atrial fibrillation Electronically Signed By: Asa Pretty 18-Jun-2017 10:46:52
[2017-06-18] MEDS: METOPROLOL TARTRATE 50 MG TAB PO SCH (09:36)
[2017-06-18] MEDS: PANTOPRAZOLE SODIUM 40 MG TAB PO SCH (09:36)
[2017-06-18] MEDS: AMIODARONE HCL 200 MG TAB PO SCH (09:36)
[2017-06-18] MEDS: ASPIRIN 81 MG CHEWABLE TAB PO SCH (09:36)
[2017-06-18] MEDS: APIXABAN 2.5 MG TAB PO SCH (09:36)
[2017-06-18] MEDS ORDERED: PROPOFOL 200 MG/20 ML VIAL ONE (10:29)
[2017-06-18] MEDS ORDERED: MIDAZOLAM 2 MG/2 ML VIAL ONE (10:29)
--- NOTE | 2017-06-18 10:48 | PDANEPAE ---
ANE Past Medical History - Cardiovascular History Hx Hypertension: No Hx Arrhythmias: Yes Hx Chest Pain: No Hx Coronary Artery / Peripheral Vascular Disease: No Hx CHF / Valvular Disease: No Hx Palpitations: No Cardiovascular History Comment: A- FIB/PVC'S. ABLATION X3 LAST 10/2016 - Pulmonary History Hx COPD: No Hx Asthma/Reactive Airway Disease: No Hx Recent Upper Respiratory Infection: No Hx Oxygen in Use at Home: No Hx Sleep Apnea: No Pulmonary History Comment: LUNG NODULES W/CHRONIC INF. LAST BRONCH 01/2015 - Neurologic History Hx Cerebrovascular Accident: No Hx Seizures: No Hx Dementia: No - Endocrine History Hx Diabetes: No - Renal History Hx Renal Disorders: Yes Renal History Comment: BPH SOME IMPROVEMENT WITH GREEN LIGHT LASER - Liver History Hx Hepatic Disorders: No - Neurological & Psychiatric Hx Hx Neurological and Psychiatric Disorders: No - Cancer History Hx Cancer: No - Congenital Disorder History Hx Congenital Disorders: No - GI History Hx Gastrointestinal Disorders: No - Other Health History Other Health History: DDD/STENOSIS - Chronic Pain History Chronic Pain: Yes (RIB CAGE UPPER MUSCLES) - Surgical History Prior Surgeries: CARDIAC ABLATION X3 MOST RECENT 10/2016 NAKUL. BRONCHOSCOPY 2014. DONNA SHOULDER RTC. GREEN LIGHT LASER WITH POST RT DVT ANE Review of Systems Review of Systems: ANE Patient History - Allergies Allergies/Adverse Reactions: aminobenzoic acid Allergy (Intermediate, Verified 03/11/15 15:48) Other-Enter Comments Cephalosporins Allergy (Intermediate, Verified 03/11/15 15:48) Other-Enter Comments Macrolide Antibiotics Allergy (Intermediate, Verified 03/11/15 15:48) Other-Enter Comments potassium clavulanate [From Augmentin] Allergy (Intermediate, Verified 03/11/15 15:48) Other-Enter Comments Quinolones Allergy (Intermediate, Verified 03/11/15 15:48) Other-Enter Comments Tetracyclines Allergy (Intermediate, Verified 03/11/15 15:48) Other-Enter Comments - Home Medications Home Medications: Multivitamins [Multivitamin (*)] 1 each PO DAILY 07/14/14 [Last Taken 07/13/14] Magnesium Sulfate/D5w [Magnesium 1 Gram/50 ml-D5w Bag] 1.5 g IV Q4D 06/12/17 [ Last Taken 06/08/17 09:00] Sotalol HCl [Sotalol] 40 mg PO PRN PRN 02/06/18 [Last Taken Unknown] - Smoking Hx Smoking Status: Former smoker - Family Anes Hx Family Hx Anesthesia Complications: NEG ANE Labs/Vital Signs - Labs Result Diagrams: 06/16/17 09:55 06/18/17 06:15 - Vital Signs Blood Pressure: 107/65 Heart Rate: 105 Respiratory Rate: 14 O2 Sat (%): 91 Height: 198.12 cm Weight: 89.1 kg ANE Physical Exam - Airway Neck exam: FROM Mallampati Score: Class 2 Mouth exam: normal dental/mouth exam - Pulmonary Pulmonary: no respiratory distress, no rales or rhonchi, reduced air movement - Cardiovascular Cardiovascular: irregularly irregular - ASA Status ASA Status: III ANE Anesthesia Plan Anesthesia Plan: GA with mask
--- NOTE | 2017-06-18 11:02 | PDTEE1 ---
DARIAN Cardioversion Procedure Procedure: electrical cardioversion, transesophageal echo Indications: other Consent: signed and in chart Anticoagulation: eliquis Procedural Details: Pads were placed in anterior-posterior position. DARIAN probe was advanced and standard images obtained. There is no evidence of left atrial or left atrial appendage thrombus. Synchronized cardioversion attempt #1: 200J Results: normal sinus rhythm Conclusions: successful DARIAN cardioversion Patient Problems: Problems Problem Status Onset S/P ablation of atrial fibrillation Acute chronic disease mgmt/transitional care Acute Acute blood loss anemia Acute S/P CABG x 2 Acute ~06/12/17 CAD in [place] artery Acute Chest pain Acute
[2017-06-18] MEDS ORDERED: NALOXONE HCL 0.4 MG/ML INJ IVP PRN (11:04)
--- NOTE | 2017-06-18 11:45 | CPEKG ---
Heart Rate: 64 RR Interval: 938 P-R Interval: 188 QRSD Interval: 74 QT Interval: 416 QTC Interval: 430 P [place]: 62 QRS [place]: 83 T Wave [place]: 45 EKG Severity - OTHERWISE NORMAL ECG - EKG Impression: SINUS RHYTHM EKG Impression: BORDERLINE RIGHT AXIS DEVIATION Electronically Signed By: Asa Pretty 18-Jun-2017 12:36:43
[2017-06-18 12:50] VITALS: BP 104/68; PULSE 65; RESP 18; TEMP 97.6; O2SAT 93
--- NOTE | 2017-06-18 13:11 | PDIAF ---
- Diagnosis Diagnosis: s/p CABGx2, PV ablation, AtriClip ANDREA Code Status: Full Code - Medication Management Discharge Medications: Medications to Continue on Transfer Multivitamins [Multivitamin (*)] 1 each PO DAILY 07/14/14 [Last Taken 07/13/14] Magnesium Sulfate/D5w [Magnesium 1 Gram/50 ml-D5w Bag] 1.5 g IV Q4D 06/12/17 [ Last Taken 06/08/17 09:00] Acetaminophen [Tylenol 325mg (*)] 325 - 650 mg PO Q4HRS PRN tab 06/18/17 [Last Taken Unknown] Amiodarone HCl [Pacerone (*)] 200 mg PO BID #60 tab 06/18/17 [Last Taken Unknown ] Apixaban [Eliquis] 2.5 mg PO BID #60 tab 06/18/17 [Last Taken Unknown] Aspirin [Aspirin 81mg (*)] 81 mg PO DAILY #30 tab.chew 06/18/17 [Last Taken Unknown] Hydrocodone/APAP 5/325 [[place] 5/325 (*)] 1 tab PO Q6H PRN #40 tab 06/18/17 [ Last Taken Unknown] Metoprolol Tartrate [Lopressor 50 mg (*)] 50 mg PO BID #60 tab 06/18/17 [Last Taken Unknown] Discharge Medications: Refer to the Discharge Home Medication list for PRN reason. PICC Care - Routine: N/A - Orders Services needed: Registered Nurse, Physical Therapy, Occupational Therapy Isolation Type: None Diet Recommendation: cardiac -low fat low salt, fluid restriction (use comment for amount) (2 liters per day) Diet Texture: Regular Texture Diet, Thin Liquids, Meds Whole w/Liquids Weigh Patient: daily Mejia: No Wound Care Instructions: Cleanse wounds once daily with soap and water. Avoid immersion (pool, hot tub, bath) until scabs off. Ok to leave all wounds open to air. Avoid creams or ointments until scabs fall off. Activity/Weight Bearing Restrictions: Sternal precautions x 4 weeks. Avoid lifting > 10lbs with an outstretched arm. Avoid push/pull activities. No driving until cleared by surgery. Elevate low legs at rest. Avoid prolonged standing or dangling. Additional: Log daily vital signs once home: weight, heart rate, blood pressure. Call [facility] for overnight weight gain > 2lbs, weekly gain > 5lbs or worsening leg swelling. Call [facility] for resting heart rate > 140 OR for systolic blood pressure consistently < 90 or > 140. - Follow Up Care Current Providers and Referrals: Jung Orourke DO [Doctor of Osteopathy] - 06/26/17 9:45 am Mac Armendariz MD [Primary Care Provider] - Bertram Perkins MD [Medical Doctor] -
[2017-06-18] MEDS ORDERED: MAGNESIUM SULF 1 GM/DEXTROSE 100 ML IV ONE (13:35)
--- NOTE | 2017-06-18 14:43 | PDDCSUM ---
Discharge Summary Discharge Summary: ADMISSION DATE: 06/12/17 DISCHARGE DATE: 06/18/17 DISCHARGE DX: 1. Unstable angina with severe left main stenosis 2. Paroxysmal atrial fibrillation 3. Post-operative left pneumothorax 4. Acute blood loss anemia 5. Post-operative atrial flutter 6. Cervical spinal stenosis with myelopathy PROCEDURES 06/12/17, Jung Orourke: 1. Emergent CABGx2 (RUBIN-LAD, SVG-D1) 2. Open vein harvest LLE 3. Pulmonary vein ablation with radiofrequency 4. AtriClip ANDREA 06/18/17, Jung Collazo: 1. DARIAN cardioversion HOSPITAL COURSE BY PROBLEM LIST 1. Unstable angina with severe left main stenosis - severe stenosis discovered during surgical clearance for cervical spine surgery and pt emergently taken to OR for bypass surgery. Beta-cindy and aspirin prescribed for secondary prevention. 2. Paroxysmal atrial fibrillation - s/p bilateral pulmonary vein radiofrequency ablation. 3. Post-operative left pneumothorax - resolution with supportive care. 4. Acute blood loss anemia - stable without the need for blood transfusions. 5. Post-operative atrial flutter - conversion to sinus rhythm with DARIAN cardioversion. Continue beta-cindy, amiodarone, and Eliquis. 6. Cervical spinal stenosis with myelopathy - plan for surgical repair once recovered from open heart surgery. CONDITION Fair DISPOSITION Home with services (RN, PT, OT) ACTIVITY Pt was instructed on sternal precautions, activity limitations, and which problems to call [facility] with. Please see Discharge Plan and Interagency Discharge Form in chart for specifics. DISCHARGE MEDICATIONS Continue: 1. Multivitamins [Multivitamin (*)] 1 each PO DAILY 2. Magnesium Sulfate/D5w [Magnesium 1 Gram/50 ml-D5w Bag] 1.5 g IV Q4D New: 1. Acetaminophen [Tylenol 325mg (*)] 325 - 650 mg PO Q4HRS PRN 2. Amiodarone HCl [Pacerone (*)] 200 mg PO BID 3. Apixaban [Eliquis] 2.5 mg PO BID 4. Aspirin [Aspirin 81mg (*)] 81 mg PO DAILY 5. Hydrocodone/APAP 5/325 [[place] 5/325 (*)] 1 tab PO Q6H PRN 6. Metoprolol Tartrate [Lopressor 50 mg (*)] 50 mg PO BID Stop: 1. Sotalol PENDING STUDIES/LABS 1. CXR prior to follow-up F/U APPOINTMENTS 1. Jung Orourke 06/26/17, 9:45 AM
--- NOTE | 2017-06-18 14:59 | ASMTLACE ---
LACE Length of stay for Answers: 4-6 days current admission Acuity / Level of Answers: Yes Care: Did the patient have an inpatient admission? Comorbidities - select Answers: Congestive heart failure all that apply # of Emergency department Answers: 0 visits in the last 6 months Score: 9 Date Signed: 06/18/2017 02:58 PM Electronically Signed By:Yokasta Ramos RN
--- NOTE | 2017-06-18 16:58 | ECHO ---
[email or web address] [address] [address] Main: [phone] Fax: Transesophageal Echocardiography Name: JEAN MARIE GOMEZ MR#: [id number] Study Date: 06/18/2017 Study Time: 10:37 AM Date of : 1945 Age: 71 year(s) Height: ( ) Weight: ( ) BSA: Gender: Male Examination: DARIAN Indication: Pre Cardioversion, Post CABG Image Quality: Contrast: Requested by: Jung Collazo Heart Rate: Rhythm: Atrial fibrillation BP: / Procedure Staff Bond Clerk: Kameron Shabazz RDCS Reading Physician: Jung Collazo Requesting Provider: DARIAN Exam Details Conclusions: Normal global systolic LV function. The rhythm is atrial fibrillation, The left atrial appendage has been oversewn. There is no evidence of LA thrombus. Proceeded with successful elective DC cardioversion.. Measurements: Chambers Valvular Assessment AV/MV Valvular Assessment TV/PV Normal Normal Normal Name Value Range Name Value Range Name Value Range Additional Measurements: Findings: Left Ventricle: Normal global systolic LV function. Exam Comments: The rhythm is atrial fibrillation, The left atrial appendage has been oversewn. There is no evidence of LA thrombus. Proceeded with successful elective DC cardioversion.. l1n (No Signature Object) Patient: JEAN MARIE GOMEZ Study Date: 06/18/2017 Page 1 of 2 10:37 AM Patient: JEAN MARIE GOMEZ Study Date: 06/18/2017 Page 2 of 2 10:37 AM [id number]
--- NOTE | 2017-06-19 08:06 | ASDISCHSUM ---
Discharge Information Plan Status:Home with Home Health Medically Cleared to Leave:06/17/2017 Discharge Date:06/18/2017 04:55 PM D/C Disposition:Home Health Service [facility] D/C Disposition:Home, Routine, Self-Care Projected Discharge Date:06/17/2017 11:00 AM Transportation at D/C:Family Discharge Delay Reason: Follow-Up Date:06/17/2017 11:00 AM Discharge Slot: Final Diagnosis: Placement Information Referral Type:*Home Health Care Services Referral ID:[id number] Provider Name:[facility] Address 1:[address] [place] [address] Address 2: City:[place] Selection Factors: State:[place] Referral Type:*Fci/SNF Referral ID:[id number] Provider Name: Address 1: Phone Number: Address 2: Fax Number: City: Selection Factors: State: Patient Contact Information Contact Name:JOHNNY Relationship: Address:[address] Work Phone: City:[place] Alternate Phone: [facility]/Zip Code:[place] [address] Email: Financial Information Financial Class:Medicare Primary Plan Desc:MEDICARE INPATIENT Primary Plan Number:[id number] Secondary Plan Desc:[employer] INSURANCE Secondary Plan Number:[id number] Assessment Information [facility] CM Progress Note CM Note CM Note Notes: Patient is POD #1 emergent CABG x2. He is stable and recovering in the ICU. He has transfer orders for the PCU. Patient lives independently with . PT/OT have been ordered. CM will follow for discharge needs. Current CM Discharge plan: TBD Date Signed: 06/13/2017 12:04 PM Electronically Signed By:Enedina Arceo RN [facility] CM Progress Note CM Note CM Note Notes: Therapies are recommending inpatient rehab. CM spoke w/ Nga Bro. Nga will see what therapies are recommending today. Pt is being followed by transitional care. CM to follow. Plan: TBD Date Signed: 06/14/2017 12:05 PM Electronically Signed By:NED Colunga [facility] CM Progress Note CM Note CM Note Notes: 06/15/2017 Case Management Note Met w/pt and family member to discuss d/c needs. Inpatient rehab has declined pt. Discussed need for SNF. Family prefers Home Care but agreed to referrals to [facility], [facility] and [facility]. Notified [facility] of possible home care referral. Case Management d/c poc: SNF vs [facility] pending pt progress. Case Management to follow. Date Signed: 06/15/2017 02:22 PM Electronically Signed By:Yokasta Ramos RN [facility] CM Progress Note CM Note CM Note Notes: Spoke with MD regarding dc poc & SNFs that are currently willing to accept pt; MD would prefer for pt to dc to [facility] when medically stable. Confirmed [facility] is willing to accept. Spoke with pt & his , Clare ([phone]); Clare in agreement for pt to dc to [facility], but would like to make the decision closer to the time of dc. Clare & pt also considering pt returning home w/Outpatient Cardiac Rehab support. Updated RN. CM will continue to follow. Date Signed: 06/17/2017 03:04 PM Electronically Signed By:Yessica Stephens RN LACE LACE Length of stay for Answers: 4-6 days current admission Acuity / Level of Answers: Yes Care: Did the patient have an inpatient admission? Comorbidities - select Answers: Congestive heart failure all that apply # of Emergency department Answers: 0 visits in the last 6 months Score: 9 Date Signed: 06/18/2017 02:58 PM Electronically Signed By:Yokasta Ramos RN Case Management Discharge Plan Note Case Management Discharge Discharge Order Complete? Answers: Yes Patient to Obtain Answers: via Family Medications Transportation Arranged Answers: Family/Friends Faxed Final Orders Answers: Yes Agency/Facility Transfer Answers: Yes Report Printed & Faxed to Receiving Agency Family Notified Answers: Yes Notes: in room Discharge Comments Notes: pt to use [facility]. Notified [facility] of d/c. Family notified. Family to transport home. Faxed final orders. Date Signed: 06/18/2017 03:02 PM Electronically Signed By:Yokasta Ramos RN Intervention Information Intervention Type:*Incorrect Registration Date of Service:06/12/2017 04:04 PM Patient Type:Observation Staff Member:ALESSANDRA Stephens, Yessica Hours: Discipline: Severity: Comment: Intervention Type:*IM-Signed Date of Service:06/18/2017 02:52 PM Patient Type:Inpatient Staff Member:Lupe Gillespie Hours: Discipline: Severity: Comment:
== END 2017-06-18 16:55 | disposition home or self-care (01) | DRG 234 ==
LOC: FCATH 09:33 → F2N 13:29 → OBSVTOIN 16:01 → F2N 16:06 → F2W 06-13 16:25
PROVIDERS: ADMIT Internal Medicine Interventional Cardiology; ATTEND Thoracic Surgery (Cardiothoracic Vascular Surgery)
PROC: 02100Z9 Bypass Coronary Artery, One Artery from Left Internal Mammary, Open Approach (ICD-10-PCS; principal; 2017-06-12 12:00)
PROC: 06BQ0ZZ Excision of Left Saphenous Vein, Open Approach (ICD-10-PCS; principal; 2017-06-12 12:00)
PROC: 02L70CK Occlusion of Left Atrial Appendage with Extraluminal Device, Open Approach (ICD-10-PCS; principal; 2017-06-12 12:00)
PROC: 025T0ZZ Destruction of Left Pulmonary Vein, Open Approach (ICD-10-PCS; principal; 2017-06-12 12:00)
PROC: 021009W Bypass Coronary Artery, One Artery from Aorta with Autologous Venous Tissue, Open Approach (ICD-10-PCS; principal; 2017-06-12 12:00)
PROC: 5A1221Z Performance of Cardiac Output, Continuous (ICD-10-PCS; principal; 2017-06-12 12:00)
PROC: 4A023N7 Measurement of Cardiac Sampling and Pressure, Left Heart, Percutaneous Approach (ICD-10-PCS; 2017-06-12 12:00)
PROC: B2151ZZ Fluoroscopy of Left Heart using Low Osmolar Contrast (ICD-10-PCS; 2017-06-12 12:00)
PROC: B2111ZZ Fluoroscopy of Multiple Coronary Arteries using Low Osmolar Contrast (ICD-10-PCS; 2017-06-12 12:00)
PROC: 5A02210 Assistance with Cardiac Output using Balloon Pump, Continuous (ICD-10-PCS; 2017-06-12 12:00)
PROC: 5A2204Z Restoration of Cardiac Rhythm, Single (ICD-10-PCS; 2017-06-18)
PROC: B246ZZ4 Ultrasonography of Right and Left Heart, Transesophageal (ICD-10-PCS; 2017-06-18)
DX: I25.110 Atherosclerotic heart disease of native coronary artery with unstable angina pectoris (principal); I48.0 Paroxysmal atrial fibrillation; D62 Acute posthemorrhagic anemia; J93.9 Pneumothorax, unspecified; I48.92 Unspecified atrial flutter; M48.02 Spinal stenosis, cervical region; N40.0 Benign prostatic hyperplasia without lower urinary tract symptoms
CPT/HCPCS: 82947-QW; 92526-GN; 92610-GN; 97110-GP; 97116-GP; 97162-GP; 97166-GO; 97530-GP; 97535-GO; C1769; G8978-GP-CK; G8979-GP-CJ; G8987-GO-CK; G8988-GO-CI; G8989-GO-CJ; G8996-GN-CH; G8996-GN-CI; G8997-GN-CH; G8997-GN-CI; G8998-GN-CH; J0153; J0282; J0690; J1100; J1170; J1265; J1644; J1815; J1885; J2001; J2150; J2250; J2260; J2270; J2370; J2405; J2440; J2704; J2720; J2930; J3010; J3370; J3475; J7060; P9041; Q9967

== ENCOUNTER → 2017-06-26 | Outpatient (CLI) | payer OTHER | LOC: FIMAGING 08:46 → EDSTATUS 08:47 | PROVIDERS: ATTEND Thoracic Surgery (Cardiothoracic Vascular Surgery) | DX: Z48.812 Encounter for surgical aftercare following surgery on the circulatory system (principal); J90 Pleural effusion, not elsewhere classified; Z95.1 Presence of aortocoronary bypass graft ==

== ENCOUNTER → 2017-07-05 | Outpatient (CLI) | payer OTHER | LOC: FIMAGING 10:46 | PROVIDERS: ATTEND Thoracic Surgery (Cardiothoracic Vascular Surgery) | DX: Z48.812 Encounter for surgical aftercare following surgery on the circulatory system (principal); Z95.1 Presence of aortocoronary bypass graft ==

== ENCOUNTER 2017-07-09 18:41 | Inpatient (IN) | payer OTHER ==
--- NOTE | 2017-07-09 19:06 | CPEKG ---
Heart Rate: 67 RR Interval: 896 P-R Interval: 224 QRSD Interval: 80 QT Interval: 396 QTC Interval: 418 P [place]: 77 QRS [place]: 122 T Wave [place]: 74 EKG Severity - ABNORMAL ECG - EKG Impression: SINUS RHYTHM EKG Impression: FIRST DEGREE AV BLOCK EKG Impression: RIGHT AXIS DEVIATION Electronically Signed By: Julio Cesar Becerril 09-Jul-2017 19:23:56
--- NOTE | 2017-07-09 19:23 | EDPHY ---
H & P Stated Complaint: CABG on 06/12;twinges in L chest since last week Time Seen by Provider: 07/09/17 19:05 HPI/ROS: CHIEF COMPLAINT: Chest pain shortness of breath HISTORY OF PRESENT ILLNESS: The patient is a 71-year-old man who comes to the emergency department complaining of 2 episodes of slight chest pain this week. He is 1 week status post 2 vessel CABG. He also has a history of AFib and SVT post 3 ablations. He had some recurrent AFib during his recovery but was cardioverted and has not had any arrhythmias since. He states that this does not feel like palpitation. He is on Eliquis. He initially noticed it on last Sunday when he had some twinges in his chest that only last for a second or two however he states that his energy decreased dramatically since that time. He also states that he feels slightly breathless since that time. Today he had some soreness in his chest as well. No fevers. No coughing. No nausea vomiting or diarrhea. REVIEW OF SYSTEMS: Constitutional: denies: chills, fever, recent illness, recent injury EENTM: denies: blurred vision, double vision, nose congestion Respiratory: denies: cough, shortness of breath Cardiac: See HPI Gastrointestinal/Abdominal: denies: abdominal pain, diarrhea, nausea, vomiting, blood streaked stools Genitourinary: denies: dysuria, frequency, hematuria, pain Musculoskeletal: denies: joint pain, muscle pain Skin: denies: lesions, rash, jaundice, bruising Neurological: denies: headache, numbness, paresthesia, tingling, dizziness, weakness Hematologic/Lymphatic: denies: blood clots, easy bleeding, easy bruising Immunologic/allergic: denies: HIV/AIDS, transplant EXAM: GENERAL: Well-appearing, well-nourished and in no acute distress. HEAD: Atraumatic, normocephalic. EYES: Pupils equal round and reactive to light, extraocular movements intact, sclera anicteric, conjunctiva are normal. ENT: TMs normal, nares patent, oropharynx clear without exudates. Moist mucous membranes. NECK: Normal range of motion, supple without lymphadenopathy or JVD. LUNGS: Breath sounds clear to auscultation bilaterally and equal. No wheezes rales or rhonchi. HEART: Regular rate and rhythm without murmurs, rubs or gallops. ABDOMEN: Soft, nontender, normoactive bowel sounds. No guarding, no rebound. No masses appreciated. BACK: No CVA tenderness, no spinal tenderness, step-offs or deformities EXTREMITIES: Normal range of motion, no pitting or edema. No clubbing or cyanosis. NEUROLOGICAL: Cranial nerves II through XII grossly intact. Normal speech, normal gait. 5/5 strength, normal movement in all extremities, normal sensation PSYCH: Normal mood, normal affect. SKIN: Warm, dry, normal turgor, no visible rashes or lesions. Source: Patient Exam Limitations: No limitations - Personal History Current Tetanus Diphtheria and Acellular Pertussis (TDAP): Yes - Medical/Surgical History Hx Asthma: No Hx Chronic Respiratory Disease: No Hx Diabetes: No Hx Cardiac Disease: Yes Hx Renal Disease: No Hx Cirrhosis: No Hx Alcoholism: No Hx HIV/AIDS: No Hx Splenectomy or Spleen Trauma: No Other PMH: A fib/ Ablation, pvcs. tonsils , bitlat shldr repair ,prostate hypertrophy, esopageal dilatation. 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 - Family History Significant Family History: No pertinent family hx - Social History Smoking Status: Former smoker Alcohol Use: Sober Drug Use: None Constitutional: Initial Vital Signs Temperature (C) 36.8 C 07/09/17 18:43 Heart Rate 68 07/09/17 18:43 Respiratory Rate 18 07/09/17 18:43 Blood Pressure 121/72 H 07/09/17 18:43 O2 Sat (%) 97 07/09/17 18:43 O2 Delivery Mode Room Air Allergies/Adverse Reactions: aminobenzoic acid Allergy (Intermediate, Verified 07/09/17 18:42) Other-Enter Comments Macrolide Antibiotics Allergy (Intermediate, Verified 07/09/17 18:42) Other-Enter Comments melatonin Allergy (Intermediate, Verified 07/11/17 06:38) Other-Enter Comments potassium clavulanate [From Augmentin] Allergy (Intermediate, Verified 07/09/17 18:42) Other-Enter Comments Quinolones Allergy (Intermediate, Verified 07/09/17 18:42) Other-Enter Comments Tetracyclines Allergy (Intermediate, Verified 07/09/17 18:42) Other-Enter Comments potassium clavulanate Allergy (Unknown, Uncoded 06/18/17 14:45) Other-Enter Comments Home Medications: Medication Instructions Recorded Acetaminophen [Tylenol 325mg (*)] 325 mg PO HS PRN 07/09/17 Apixaban [Eliquis] 2.5 mg PO BID 07/09/17 Aspirin [Aspirin 325 mg (*)] 325 mg PO DAILY 07/09/17 Cephalexin [Keflex (*)] 500 mg PO TID 07/09/17 Furosemide [Lasix 20 MG (*)] 20 mg PO Q3D PRN 07/09/17 Metoprolol Tartrate [Lopressor 25 12.5 mg PO DAILY 07/09/17 mg (*)] Metoprolol Tartrate [Lopressor 25 25 mg PO HS 07/09/17 mg (*)] Potassium Chloride [Klor-Con M10] 10 meq PO Q3D 07/09/17 Medical Decision Making - Diagnostics EKG Interpretation: An EKG obtained and was read and documented in trace view. Please see trace view for full reading and report. Sinus rhythm, no acute ischemic changes, first-degree block Imaging: Discussed imaging studies w/ call center operations manager Radiologist ED Course/Re-evaluation: 9:00 p.m. I discussed the case with Dr. Peace who will admit to medical service. Cardiology has been paged. We are still awaiting echo. 9:05 p.m. I discussed the case with Dr. Ne Pickett who will review the echo at consult. Differential Diagnosis: Partial list of the Differential diagnosis considered include but were not limited to; pericardial effusion, PE, pleural effusion, pneumonia and although unlikely based on the history and physical exam, I also considered surgical infection, hematoma, dissection, pneumothorax. - Data Points Laboratory Results: Laboratory Results 07/10/17 03:45 07/10/17 03:45 Microbiology Results: MICROBIOLOGY 07/10/17 12:45 Nasal, Sinus - Swab Respiratory Panel (PCR) - Final No Organism Detected Medications Given: Acetaminophen (Tylenol) 650 mg PO Q4HRS PRN PRN Reason: Pain, Mild/Fever, Can Take PO Stop: 01/05/18 22:01 Last Admin: 07/10/17 22:25 Dose: 650 mg Apixaban (Eliquis) 5 mg PO BID JOSE M Stop: 01/06/18 20:59 Last Admin: 07/10/17 19:58 Dose: 5 mg Aspirin (Aspirin) 325 mg PO DAILY JOSE M Stop: 01/06/18 08:59 Last Admin: 07/10/17 08:54 Dose: 325 mg Vancomycin HCl 750 mg/ Sodium (Chloride) 150 mls @ 150 mls/hr IV Q12H [facility] Stop: 08/09/17 15:29 Last Admin: 07/11/17 04:20 Dose: 150 mls Melatonin (Melatonin) 3 mg PO HS [facility] Stop: 01/06/18 20:59 Last Admin: 07/10/17 23:57 Dose: Not Given Metoprolol Tartrate (Lopressor) 12.5 mg PO DAILY [facility] Stop: 01/06/18 08:59 Last Admin: 07/10/17 08:55 Dose: 12.5 mg Discontinued Medications Apixaban (Eliquis) 2.5 mg PO BID [facility] Stop: 01/06/18 08:59 Last Admin: 07/10/17 08:54 Dose: 2.5 mg Cephalexin HCl (Keflex) 500 mg PO TID [facility] PRN Reason: Protocol Stop: 08/09/17 08:59 Last Admin: 07/10/17 08:53 Dose: 500 mg Diphenhydramine HCl (Benadryl) 25 mg PO ONCE ONE Stop: 07/10/17 17:01 Last Admin: 07/10/17 17:09 Dose: 25 mg Departure - Departure Disposition: [facility] Acute Clinical Impression: Chest pain Qualifiers: Chest pain type: unspecified Qualified Code(s): R07.9 - Chest pain, unspecified Condition: Fair
[2017-07-09] MEDS ORDERED: IOPAMIDOL (ISOVUE 370) 100 ML BTL IV ONE (19:28)
[2017-07-09 19:36] LABS: PLATELET COUNT 270 10^3/uL (150-400)
[2017-07-09 19:47] LABS: INR 1.09 (0.83-1.16); PROTIME(PATIENT) 14.3 SEC (12.0-15.0)
[2017-07-09] MEDS ORDERED: ACETAMINOPHEN 325 MG TAB PO PRN (22:02)
[2017-07-09] MEDS ORDERED: ONDANSETRON DISINTEGRATING 4 MG TAB PO PRN (22:02)
[2017-07-09] MEDS ORDERED: ONDANSETRON 4 MG/2 ML VIAL IVP PRN (22:02)
--- NOTE | 2017-07-09 22:31 | PDGENHP ---
History and Physical - Chief Complaint Chest pain - History of Present Illness 71 yo M w/ CAD, recent CABG, and AF presents with chest pain and fatigue. Patient underwent emergent CABG in early June for L main disease. He recovered uneventfully and was doing well at home until about 1 week ago when he began to notice "twinges" in his chest as well as fatigue. These symptoms worsened today so he came to the ED for evaluation. In the ED ECG shows no signs of ischemia but troponin is mildly elevated in indeterminate range. Of note, he has been receiving antibiotics for cellulitis involving the venous graft site on his LLE. History Information - Allergies/Home Medication List Allergies/Adverse Reactions: aminobenzoic acid Allergy (Intermediate, Verified 07/09/17 18:42) Other-Enter Comments Macrolide Antibiotics Allergy (Intermediate, Verified 07/09/17 18:42) Other-Enter Comments potassium clavulanate [From Augmentin] Allergy (Intermediate, Verified 07/09/17 18:42) Other-Enter Comments Quinolones Allergy (Intermediate, Verified 07/09/17 18:42) Other-Enter Comments Tetracyclines Allergy (Intermediate, Verified 07/09/17 18:42) Other-Enter Comments potassium clavulanate Allergy (Unknown, Uncoded 06/18/17 14:45) Other-Enter Comments Home Medications: Acetaminophen [Tylenol 325mg (*)] 325 mg PO HS PRN 07/09/17 [Last Taken Unknown] Apixaban [Eliquis] 2.5 mg PO BID 07/09/17 [Last Taken 07/09/17 08:00] Aspirin [Aspirin 325 mg (*)] 325 mg PO DAILY 07/09/17 [Last Taken 07/09/17] Cephalexin [Keflex (*)] 500 mg PO TID 07/09/17 [Last Taken 07/09/17 12:00] Furosemide [Lasix 20 MG (*)] 20 mg PO Q3D PRN 07/09/17 [Last Taken 07/08/17] Metoprolol Tartrate [Lopressor 25 mg (*)] 12.5 mg PO DAILY 07/09/17 [Last Taken 07/09/17] Metoprolol Tartrate [Lopressor 25 mg (*)] 25 mg PO HS 07/09/17 [Last Taken 07/08] Potassium Chloride [Klor-Con M10] 10 meq PO Q3D 07/09/17 [Last Taken 07/08/17] I have personally reviewed and updated: family history, medical history - Past Medical History atrial fibrillation, coronary artery disease - Surgical History Reports: coronary bypass surgery, spinal surgery - Family History Positive for: CAD - Social History Smoking Status: Former smoker Review of Systems Review of Systems: ROS: 10pt was reviewed & negative except for what was stated in HPI & below Physical Exam Physical Exam: Temp Pulse Resp BP Pulse Ox 36.8 C 68 18 122/71 H 97 07/09/17 18:43 07/09/17 21:35 07/09/17 21:35 07/09/17 21:35 07/09/17 21:35 Constitutional: no apparent distress, not in pain Eyes: PERRL, EOMI Ears, Nose, Mouth, Throat: moist mucous membranes, no oral mucosal ulcers Cardiovascular: regular rate and rhythym, no murmur, rub, or gallop Respiratory: no respiratory distress, no rales or rhonchi Gastrointestinal: normoactive bowel sounds, soft, non-tender abdomen Skin: warm, other (Mild erythema involving lower border of vein graft site on LLE) Musculoskeletal: full muscle strength, no muscle tenderness Neurologic: AAOx3, CN II-XII Intact Psychiatric: interacting appropriately, not anxious Lab Data & Imaging Review 07/09/17 19:02 07/09/17 19:02 WBC 7.70 10^3/uL (3.80-9.50) 07/09/17 19:02 RBC 4.49 10^6/uL (4.40-6.38) 07/09/17 19:02 Hgb 14.0 g/dL (13.7-17.5) 07/09/17 19:02 Hct 43.7 % (40.0-51.0) 07/09/17 19:02 MCV 97.3 fL (81.5-99.8) 07/09/17 19:02 MCH 31.2 pg (27.9-34.1) 07/09/17 19:02 MCHC 32.0 g/dL (32.4-36.7) L 07/09/17 19:02 RDW 12.6 % (11.5-15.2) 07/09/17 19:02 Plt Count 270 10^3/uL (150-400) 07/09/17 19:02 MPV 10.1 fL (8.7-11.7) 07/09/17 19:02 Neut % (Auto) 65.9 % (39.3-74.2) 07/09/17 19:02 Lymph % (Auto) 16.5 % (15.0-45.0) 07/09/17 19:02 [place] % (Auto) 9.6 % (4.5-13.0) 07/09/17 19:02 Eos % (Auto) 6.6 % (0.6-7.6) 07/09/17 19:02 Baso % (Auto) 1.0 % (0.3-1.7) 07/09/17 19:02 Nucleat RBC Rel Count 0.0 % (0.0-0.2) 07/09/17 19: Absolute Neuts (auto) 5.07 10^3/uL (1.70-6.50) 07/09/17 19:02 Absolute Lymphs (auto) 1.27 10^3/uL (1.00-3.00) 07/09/17 19:02 Absolute Monos (auto) 0.74 10^3/uL (0.30-0.80) 07/09/17 19:02 Absolute Eos (auto) 0.51 10^3/uL (0.03-0.40) H 07/09/17 19:02 Absolute Basos (auto) 0.08 10^3/uL (0.02-0.10) 07/09/17 19:02 Absolute Nucleated RBC 0.00 10^3/uL (0-0.01) 07/09/17 19:02 Immature Gran % 0.4 % (0.0-1.1) 07/09/17 19:02 Immature Gran # 0.03 10^3/uL (0.00-0.10) 07/09/17 19:02 PT 14.3 SEC (12.0-15.0) 07/09/17 19:02 INR 1.09 (0.83-1.16) 07/09/17 19:02 APTT 27.3 SEC (23.0-38.0) 07/09/17 19:02 Sodium 139 mEq/L (135-145) 03/05/18 19:02 Potassium 4.1 mEq/L (3.5-5.2) 07/09/17 19:02 Chloride 100 mEq/L (97-110) 07/09/17 19:02 Carbon Dioxide 25 mEq/l (22-31) 07/09/17 19:02 Anion Gap 14 mEq/L (8-16) 07/09/17 19:02 BUN 16 mg/dL (7-23) 07/09/17 19:02 Creatinine 1.1 mg/dL (0.7-1.3) 07/09/17 19:02 Estimated GFR > 60 07/09/17 19:02 Glucose 86 mg/dL (70-100) 07/09/17 19:02 Calcium 9.3 mg/dL (8.5-10.4) 07/09/17 19:02 Troponin I 0.044 ng/mL (0.000-0.034) H 07/09/17 19:02 Imaging Review: Imaging Impressions Chest/Thorax CTA 07/09/17 19:20 Impression: 1. No pulmonary embolism. 2. Interval coronary artery bypass surgery. 3. Scattered noncalcified right lung nodules have not suspiciously changed. The distribution multiplicity of pulmonary nodules is again most compatible with history of SAYDA infection, chronic. Findings and recommendations discussed with VISHAL WEAVER at 8:00 PM hour, 07/09/2017. Visualized and Interpreted Chest x-ray results: Yes Visualized and Interpreted EKG results: Yes EKG Interpretation: Positive for: normal sinsus rhythm, other (RAD) Assessment & Plan Assessment: 71 yo M w/ CAD, recent CABG, and AF presents with chest pain and fatigue. Plan: 1. Chest pain - Unclear etiology, pain sounds atypical for angina. Most likely this is related to post-operative chest wall pain. CXR non-ischemic and troponin indeterminate on admission. CTPE without acute abnormality to explain symptoms. - Admit to PCU for observation - Monitor on telemetry, trend cardiac enzymes - TTE for further evaluation - Cardiology consulted, appreciate assistance 2. CAD s/p CABG - Underwent emergent 2v CABG w/ Dr. Orourke on 06/12/17. Compliant with ASA and BB, will continue those here. 3. AF - In NSR on admission, compliant with apixaban for AC. 4. LLE cellulitis - At the site of venous graft site. Has been on Keflex per PCP for several weeks. It is possible this is contributing to symptoms of fatigue. - Blood cultures - Continue Keflex 500 mg TID Diet - NPO @ MN pending cardiac work-up Code - Full Ppx - apixaban Dispo - Admit to PCU under observation status
--- NOTE | 2017-07-09 23:03 | ECHO ---
[email or web address] [address] [address] Main: [phone] Fax: Transthoracic Echocardiogram Name: JEAN MARIE GOMEZ MR#: [id number] Study Date: 07/09/2017 Study Time: 10:14 PM Date of : 1945 Age: 71 year(s) Height: ( ) Weight: ( ) BSA: Gender: Male Examination: Echo Indication: Chest Pain Image Quality: Adequate Contrast: Requested by: Julio Cesar Becerril BP: 124 mmHg/71 mmHg Heart Rate: Rhythm: Indication: Chest Pain Procedure Staff Grinding Room Supervisor: Dorothy Parry [facility] Reading Physician: Ne Pickett MD Requesting Provider: Conclusions: Normal size left ventricle. Mild concentric LV hypertrophy. Normal global systolic LV function. EF is 62 %. No regional wall motion abnormality. Normal size right ventricle. Low normal right ventricular function. Mild tricuspid regurgitation is present. Right ventricular systolic pressure measures 29mmHg. Trivial pericardial effusion. Measurements: Chambers Valvular Assessment AV/MV Valvular Assessment TV/PV Normal Normal Normal Name Value Range Name Value Range Name Value Range Ao Lucia (MM): 3.0 cm (2.2 cm-3.7 AV Vmax: 1.00 m/s (1 m/s-1.7 TR Vmax: 2.47 mm/s ( - ) cm) m/s) TR PGmax: 24 mmHg ( - ) IVSd (2D): 1.2 cm (0.6 cm-1.1 AV maxP mmHg ( - ) syst. PAP: 29 mmHg ( - ) cm) LVOT Vmax: 0.78 m/s (0.7 m/s-1.1 PV Vmax: 0.87 m/s (0.6 m/s-0.9 LVDd (2D): 4.3 cm (4.2 cm-5.9 m/s) m/s) cm) MV E Vmax: 0.76 m/s ( - ) PV PGmax: 3 mmHg ( - ) LVDs (2D): 2.9 cm (2.1 cm-4 MV A Vmax: 0.29 m/s ( - ) cm) MV E/A: 2.62 ( - ) LVPWd (2D): 1.0 cm (0.6 cm-1 cm) LVEF (BP): 62 % (>=55 %) RVDd(2D): 3.6 cm (1.9 cm-3.8 cmmm) Continued Measurements: Patient: JEAN MARIE GOMEZ Study Date: 07/09/2017 Page 1 of 2 10:14 PM Chambers Valvular Assessment AV/MV Valvular Assessment TV/PV Name Value Name Value Name Value LADs: 3.1 cm MV DecTime: 271 m/s CVP (est.): 5 mmHg LADs Lon.5 cm LA Area: 12.2 cm2 LA Volume: 30 ml TAPSE: 1.6 cm Additional Vessels Name Value Ao Ascendin.2 cm Findings: Left Ventricle: Normal size left ventricle. Mild concentric LV hypertrophy. Normal global systolic LV function. EF is 62 %. No regional wall motion abnormality. Right Ventricle: Normal size right ventricle. Low normal right ventricular function. Left Atrium: The left atrium is normal in size. Right Atrium: The right atrium is normal in size. Mitral Valve: The mitral valve is normal in appearance and function. There is mild thickening of the mitral valve leaflets. Trivial mitral valve regurgitation. No mitral stenosis is present. Aortic Valve: The aortic valve is normal in appearance and function. There is no aortic valve regurgitation. No aortic valve stenosis is present. Tricuspid Valve: The tricuspid valve is normal in appearance and function. Mild tricuspid regurgitation is present. Right ventricular systolic pressure measures 29mmHg. Pulmonic Valve: The pulmonic valve is normal in appearance and function. Mild pulmonic valve regurgitation is noted. Aorta: The aorta is normal. Normal size aortic root measuring 3.0 cm. Normal size ascending aorta measuring 3.2 cm. Pericardium: Trivial pericardial effusion. (No Signature Object) Patient: JEAN MARIE GOMEZ Study Date: 07/09/2017 Page 2 of 2 10:14 PM [id number]
[2017-07-10 04:19] LABS: PLATELET COUNT 241 10^3/uL (150-400)
[2017-07-10] MEDS: ASPIRIN 325 MG TAB PO SCH (08:54)
[2017-07-10] MEDS ORDERED: CEPHALEXIN 500 MG CAP PO SCH (09:00)
[2017-07-10] MEDS ORDERED: APIXABAN 2.5 MG TAB PO SCH (09:00)
[2017-07-10] MEDS ORDERED: METOPROLOL TARTRATE 25 MG TAB PO SCH ×2 (09:00→21:00)
--- NOTE | 2017-07-10 10:07 | WOCRNPDOC ---
WOCRN Advanced Assessment Note - Skin Integrity Problem, Advanced Assess Left Lower Medial Leg Surgical Wound/Incision Dressing Type: Open to Air Exudate Amount: None Skin Integrity Problem Comment: Mostly scarred healed area with tiny areas of necrosis. No wound care necessary. Apply cream for moisture. Wound care will sign off.
--- NOTE | 2017-07-10 11:16 | PDCARPN ---
Cardiology Progress Note Chief Complaint: Twinges to chest Assessment/Plan: Assessment: Patient is a 71 y/o male, well known to [employer], with history of CAD s/p CABG (2V in Jun 2017), atrial fibrillation with PVCs s/p ablation (outside the [place]), with recently noted left lower extremity cellulitis (two rounds of oral antibiotics with ongoing infection), who presents to [facility] after appreciating "chest twinges". These symptoms were noted about one week ago, and since that time the patient was seen by CT surgery PA. Recommendations were for patient to continue with rehab (and start cardiac rehab as soon as possible). PCP has attempted to treat the LLE cellulitis, but two rounds of therapy have yet to cause consistently healing to the posterior vein harvest incision site. At present, the patient is doing well. Mild erythema is noted to the inferior portion of the vein harvest site. No complaints of chest pains or pressure. No PND or orthopnea, but mild left lower extremity swelling has been noted. was present with the patient in the room today. Plan: (1) Would arrange for patient to have MPI (would prefer exercise if possible, but if not, Sania will suffice) to non invasively testing for ischaemia (2) Maintain oral antibiotic therapy and consider ID consultation given the number or rounds that the patient has had, and ongoing infection (3) Continue Eliquis for CVA prophylaxis given the atrial fibrillation that has been noted. (4) Further recommendations after testing has been completed. Subjective: Patient without active cardiovascular complaints, but concerned about the symptoms that have been noted and the history (CAD/CABG). Reviewed/Discussed With: family, hospitalist, multidisciplinary team Objective: Vital Signs (8 Hrs) Temp Pulse Resp BP Pulse Ox 07/10/17 07:24 36.4 C 68 14 107/64 97 07/10/17 03:36 36.4 C 71 16 106/51 L 95 Intake/Output (24 Hrs) 07/09/17 07/10/17 07/11/17 05:59 05:59 05:59 Intake Total 250 Output Total 100 Balance 150 Intake: Oral (ml) 250 Output: Urine (ml) 100 Urinal 100 Other: Weight 81.647 kg Result Diagrams: 07/10/17 03:45 07/10/17 03:45 Cardiac Labs: Cardiac Lab Results (72 Hrs) 07/10/17 03:45 Troponin I 0.040 H Telemetry: sinus rhythm with first degree AVB - Physical Exam Constitutional: WDWN, healthy appearing, no apparent distress Eyes: PERRL, EOMI Ears, Nose, Mouth, Throat: moist mucous membranes Cardiovascular: regular rate and rhythm, no murmurs, pulses symmetric bilat, No jugular vein distention Peripheral Pulses: 2+: dorsalis-pedis (R), dorsalis-pedis (L) Respiratory: clear to auscultate bilat, no crackles, no wheezes Gastrointestinal: normoactive bowel sounds Skin: rash (left lower extremity), other (mild L>R lower extremity edema) Musculoskeletal: no muscular tenderness Neurologic: AAOx3, CN II-XII grossly intact Psychiatric: cooperative, interactive, following commands ICD10 Worksheet Patient Problems: Problems Problem Status Onset Chest pain Acute Acute blood loss anemia Acute CAD in [place] artery Acute S/P CABG x 2 Acute ~06/12/17 S/P ablation of atrial fibrillation Acute chronic disease mgmt/transitional care Acute
--- NOTE | 2017-07-10 12:34 | ASMTCMCOM ---
CM Note CM Note Notes: Patient is s/p emergent CABG x2 in early June. He was discharged home with his on 06/18 and had been doing well, working with [facility]. He was discharged by his home RN yesterday but was still working with PT. About a week ago, he began to c/o chest pain, fatigue and weight loss. He will have a nuclear stress test today. Case Management will follow for discharge planning. [facility] will continue to follow, as well. Date Signed: 07/10/2017 12:33 PM Electronically Signed By:Enedina Arceo RN
--- NOTE | 2017-07-10 15:01 | HOSPPROG ---
Hospitalist Progress Note Assessment/Plan: * LLE cellulitis -s/p PO Keflex x 2 abx courses - still with erythema/pain lower part of wound -start IV Vanco -check US rule out SQ fluid collection -consult ID in am * Chest pain -per cardiology - stress test in am * CAD/recent CABG 06/12/17 * Afib -will increase Eliquis to full dose 5mg BID Subjective: LLE with persistent erythema, went off Keflex once and within 24 hours flared to massive/red/swollen. Now back on 2nd course Keflex, erythema improved but not resolving. Severe unrelenting fatigue for over 1 week started immediately after CP episode. Objective: Vital Signs Temp Pulse Resp BP Pulse Ox 36.7 C 60 12 101/64 98 07/10/17 11:51 07/10/17 11:51 07/10/17 11:51 07/10/17 11:51 07/10/17 11:51 Microbiology 07/10/17 12:45 Respiratory Panel (PCR) - Final Nasal, Sinus - Swab No Organism Detected Laboratory Results 07/10/17 03:45 07/10/17 03:45 07/09/17 07/10/17 07/11/17 05:59 05:59 05:59 Intake Total 250 Output Total 100 Balance 150 PT 14.3 SEC (12.0-15.0) 07/09/17 19:02 INR 1.09 (0.83-1.16) 07/09/17 19:02 EKG viewed, my personal interpretation is - no ischemic change CTA chest - no PE - Physical Exam Constitutional: no apparent distress, appears nourished, not in pain Cardiovascular: regular rate and rhythym, no murmur, rub, or gallop Respiratory: no respiratory distress, no rales or rhonchi, clear to auscultation Gastrointestinal: normoactive bowel sounds, soft, non-tender abdomen, no palpable masses Skin: erythema, rash, No normal color, No induration, No fluctuance Neurologic: AAOx3, sensation intact bilaterally Psychiatric: interacting appropriately, not anxious, not encephalopathic, thought process linear ICD10 Worksheet Patient Problems: Problems Problem Status Onset Chest pain Acute Acute blood loss anemia Acute CAD in [place] artery Acute S/P CABG x 2 Acute ~06/12/17 S/P ablation of atrial fibrillation Acute chronic disease [facility]/transitional care Acute
[2017-07-10] MEDS ORDERED: VANCOMYCIN 750 MG in D5W 150 ML IV SCH (15:30)
[2017-07-10] MEDS: VANCOMYCIN 750 MG in NS 150 ML IV SCH (15:49)
--- NOTE | 2017-07-10 16:12 | PDMN ---
Medical Necessity Medical necessity: change to IP; los>2mn for LLE cellulitis on oral abx, chest pain and afib; requires IV Vanco, US to r/o SQ fluid collection, ID consult, stress test 07/11; comorbid CAD w/recent CABG 06/12; per order and progress note 07/10
[2017-07-10] MEDS ORDERED: diphenhydrAMINE 25 MG CAP PO ONE (17:00)
[2017-07-10] MEDS: APIXABAN 5 MG TAB PO SCH (19:58)
[2017-07-10] MEDS ORDERED: MELATONIN 3 MG TAB PO SCH (21:00)
[2017-07-11] MEDS: VANCOMYCIN 750 MG in NS 150 ML IV SCH (04:20)
[2017-07-11] MEDS ORDERED: FLU VACC QS 2017-18 (3YR+)/PF 0.5 ML SYR (FLUARIX QUAD) IM ONE ×2 (08:00→09:00)
[2017-07-11 08:16] VITALS: PULSE 75
[2017-07-11] MEDS: ASPIRIN 325 MG TAB PO SCH (08:21)
[2017-07-11] MEDS: APIXABAN 5 MG TAB PO SCH (08:21)
[2017-07-11] MEDS ORDERED: REGADENOSON 0.4 MG/5 ML SYR IVP ONE (11:07)
[2017-07-11 12:25] VITALS: BP 134/74; RESP 18; TEMP 97.4; O2SAT 98
--- NOTE | 2017-07-11 13:07 | CPR ---
[f rep st] NONINVASIVE CARDIAC PROCEDURE REPORT DATE OF PROCEDURE: 07/11/2017 ORDERING PHYSICIAN: Dallas Martinez MD REASON FOR TEST: Chest discomfort,status post CABG in June 2017. Resting EKG shows a regular sinus rhythm with T-wave inversion in V2, rate 82, resting blood pressure 130/70, resting heart rate 87. He is asymptomatic with no chest pain or shortness of breath prior t o starting. He did attempt walking on the treadmill and became fatigued after 2 minutes. The test w as stopped and switched to Lexiscan. STRESS PORTION/LEXISCAN NUCLEAR STRESS TEST: Lexiscan was injected rapidly, followed by a saline flu sh. Cardiolite was then injected rapidly, followed by saline flush. There were no EKG changes. His blood pressure peaked at 120/80. Peak heart rate 103. Oxygen saturation 100%. He did feel short o f breath with the injection of Lexiscan. RECOVERY: He did spontaneously recover. Shortness of breath subsided with caffeine. There were no EKG changes. Recovery blood pressure 118/60, heart rate 94, oxygen saturation 99%. At this time he currently is stable for nuclear imaging. /[id number]/MODL
--- NOTE | 2017-07-11 14:15 | PDCARPN ---
Cardiology Progress Note Chief Complaint: Patient doing well today. No cardiovascular complaints. No further bouts of "chest twinges" noted Assessment/Plan: Assessment: 07-11-17 Patient doing well today. Nuclear stress testing without ischaemia or infarction pattern noted. Normal left ventricular systolic ejection fraction was noted. Patient has not noted further "chest twinges" since that which was noted at the time of admission. The left lower extremity erythema has also cleared (ID did consult on the patient and have recommended outpatient follow up in 7-10 days). 07-10-17 Patient is a 71 y/o male, well known to [facility], with history of CAD s/p CABG (2V in Jun 2017), atrial fibrillation with PVCs s/p ablation (outside the [place]), with recently noted left lower extremity cellulitis (two rounds of oral antibiotics with ongoing infection), [facility] after appreciating "chest twinges". These symptoms were noted about one week ago, and since that time the patient was seen by CT surgery PA. Recommendations were for patient to continue with rehab (and start cardiac rehab as soon as possible). PCP has attempted to treat the LLE cellulitis, but two rounds of therapy have yet to cause consistently healing to the posterior vein harvest incision site. At present, the patient is doing well. Mild erythema is noted to the inferior portion of the vein harvest site. No complaints of chest pains or pressure. No PND or orthopnea, but mild left lower extremity swelling has been noted. was present with the patient in the room today. Plan: (1) Would complete oral antibiotic therapy as recommended - schedule outpatient follow up with ID (2) Continue therapy on Eliquis for CVA prophylaxis (3) Would begin cardiac rehab as soon as possible (4) ASA therapy for life with CAD/CABG (5) Lopressor therapy should continue for CAD/HTN histories Subjective: No cardiovascular complaints Reviewed/Discussed With: family, hospitalist, multidisciplinary team Objective: Vital Signs (8 Hrs) Temp Pulse Resp BP Pulse Ox 07/11/17 12:24 36.3 C 75 18 134/74 H 98 07/11/17 08:00 36.4 C 75 15 122/70 H 97 Intake/Output (24 Hrs) 07/10/17 07/11/17 07/12/17 05:59 05:59 05:59 Intake Total 1200 Balance 1200 Intake: Oral (ml) 1040 IV Infused (ml) 160 Vancomycin 750 mg In D5w 160 150 ml @ 150 mls/hr IV Q12H [facility] Rx#:[id number] Other: Intake Quantity Yes Sufficient Number of Voids Toilet 1 Number of Stools Urinal 1 Result Diagrams: 07/10/17 03:45 07/11/17 08:19 Telemetry: Normal sinus rhythm at 85 bpm - Physical Exam Constitutional: WDWN, healthy appearing, no apparent distress Eyes: PERRL, EOMI Ears, Nose, Mouth, Throat: moist mucous membranes Cardiovascular: regular rate and rhythm, no murmurs, no rubs, pulses symmetric bilat, No jugular vein distention Peripheral Pulses: 2+: dorsalis-pedis (R), dorsalis-pedis (L) Respiratory: clear to auscultate bilat, no crackles, no wheezes Gastrointestinal: normoactive bowel sounds Skin: no edema Musculoskeletal: no muscular tenderness Neurologic: AAOx3, CN II-XII grossly intact Psychiatric: cooperative, interactive, following commands ICD10 Worksheet Patient Problems: Problems Problem Status Onset Chest pain Acute Acute blood loss anemia Acute CAD in [place] artery Acute S/P CABG x 2 Acute ~06/12/17 S/P ablation of atrial fibrillation Acute chronic disease mgmt/transitional care Acute
--- NOTE | 2017-07-11 15:31 | PDDCSUM ---
Discharge Summary Discharge Summary: 71 yo male admitted with chest pain. Had nuclear stress test today which is negative. Cleared by Cardiology for discharge. Eliquis increased to full dose. There was a question about LLE cellulitis and he was seen by ID. they do not feel that he has an active infection. He will f/u with them in one week. * LLE cellulitis -s/p PO Keflex x 2 abx courses -s/p IV Vanco for one deay * Chest pain * CAD/recent CABG 06/12/17 * Afib -will increase Eliquis to full dose 5mg BID Exam: NAD AAOX3 RRR CTA B S/NT/ND NO LE EDEMA MEDS: SEE MED REC F/U: WITH ID IN ONE WEEK. WITH PCP IN ONE WEEK D/W PATIENT, PTS , NURSE, ID, CM, PHARMACIST TOTAL TIME SPENT ON D/C IS 35 MINS
--- NOTE | 2017-07-11 15:52 | PDIAF ---
- Diagnosis Diagnosis: CHEST PAIN, AFIB Code Status: Full Code - Medication Management Discharge Medications: Medications to Continue on Transfer Acetaminophen [Tylenol 325mg (*)] 325 mg PO HS PRN 07/09/17 [Last Taken Unknown] Aspirin [Aspirin 325 mg (*)] 325 mg PO DAILY 07/09/17 [Last Taken 07/09/17] Furosemide [Lasix 20 MG (*)] 20 mg PO Q3D PRN 07/09/17 [Last Taken 07/08/17] Metoprolol Tartrate [Lopressor 25 mg (*)] 12.5 mg PO DAILY 07/09/17 [Last Taken 07/09/17] Metoprolol Tartrate [Lopressor 25 mg (*)] 25 mg PO HS 07/09/17 [Last Taken 07/08] Potassium Chloride [Klor-Con M10] 10 meq PO Q3D 07/09/17 [Last Taken 07/08/17] Apixaban [Eliquis] 5 mg PO BID #60 tab 07/11/17 [Last Taken Unknown] Discharge Medications: Refer to the Discharge Home Medication list for PRN reason. - Orders Services needed: Home Care, Registered Nurse, Physical Therapy Home Care Face to Face: I certify that this patient was under my care and that I had the required [id number] encounter meeting the encounter requirements on the discharge day. My findings support the fact that the patient is homebound as defined in Home Care Face to Face Continued: CMS Chapter 7 Medicare Benefits Manual 30.1.1 , The condition of the patient is such that there exists a normal inability to leave home and consequently, leaving home would require a considerable and taxing effort. Isolation Type: None Diet Recommendation: no restrictions on diet Diet Texture: Regular Texture Diet - Follow Up Care Current Providers and Referrals: Ro Kaiser NP [Certified Nurse Practioner] - 07/18/17 1:15 pm Mac Armendariz MD [Primary Care Provider] - As per Instructions
--- NOTE | 2017-07-11 16:13 | ASMTLACE ---
LACE Length of stay for Answers: 2 days current admission Acuity / Level of Answers: Yes Care: Did the patient have an inpatient admission? Comorbidities - select Answers: Coronary Atery Disease all that apply # of Emergency department Answers: 1-2 visits in the last 6 months Score: 8 Date Signed: 07/11/2017 04:12 PM Electronically Signed By:NED Colunga
--- NOTE | 2017-07-12 06:41 | GCON ---
[f rep st] CONSULTATION INFECTIOUS DISEASES CONSULTATION. DATE OF CONSULTATION: 07/11/2017 REFERRING PHYSICIAN: Xiomara Brunson MD REASON FOR CONSULTATION: Left lower extremity cellulitis around saphenous harvest site. HISTORY OF PRESENT ILLNESS: Patient is a 71-year-old male who underwent coronary artery bypass graft ing on 06/12/2017, with use of left saphenous vein, who I am asked to see in consultation for celluli tis of the left lower extremity saphenous vein harvest site. Patient developed postoperative erythem a and serosanguineous drainage from the saphenous harvest site noted on his followup visit of 018. He was initiated on cephalexin after further clarification of prior cephalexin intolerance. Kenneth camargo notes that his symptoms improved with cephalexin, but did not fully resolve, prompting continue d treatment with cephalexin. Ultimately, this was stopped in early July and patient felt like after discontinuation that erythema returned with increased swelling, warmth, and tenderness. No active d rainage at that point in time. He was admitted to the hospital on 07/09/2017, with chief complaint o f exhaustion and chest pain. He described having "twinges of discomfort in his chest" as well as sig nificant associated fatigue. He did not have fever or chills. He notes that the erythema over his l eft lower extremity was persisting. He was initially maintained on cephalexin and yesterday concerns were raised about worsening erythema, prompting initiation of vancomycin. He has received 2 doses o f vancomycin at the time of my evaluation. Ultrasound of the lower extremity was performed, which di d reveal a 8.3 x 2.1 x 0.2 cm fluid collection felt to be most compatible with hematoma deep to the p atient's saphenous harvest site. Given the above findings, I am now asked to assist in the patient's ongoing management. PAST MEDICAL HISTORY: Coronary artery disease as above, atrial fibrillation. PAST SURGICAL HISTORY: Coronary artery bypass grafting with saphenous harvest as outlined above. CURRENT MEDICATIONS: Vancomycin 750 mg IV q.12 hours, Lopressor 25 mg p.o. q.h.s. and 12.5 mg p.o. d aily, melatonin 3 mg p.o. q.h.s., aspirin 325 mg daily, Eliquis 5 mg p.o. b.i.d. ALLERGIES: Patient notes that azithromycin and ciprofloxacin lead to limb tremor; similar reaction p reviously with cephalexin, which was not noted when cephalexin used currently. Patient does describe having red man effect with vancomycin, but was able to tolerate infusions. SOCIAL HISTORY: Patient quit smoking many years ago. No significant alcohol use. FAMILY HISTORY: Coronary artery disease. REVIEW OF SYSTEMS: Outside that noted in the HPI, the remainder of 10-system review was unremarkable . The patient has not had any issues with his sternal wound. There has been no left thigh lymphangi tis or adenopathy. PHYSICAL EXAMINATION: VITAL SIGNS: Temperature 36.3, heart rate 75, respiratory rate 18, blood pres sure 134/74, oxygen saturation 98% on room air. GENERAL: Patient is well nourished, well developed, in no acute distress. He appears nontoxic. HEENT: There is no scleral icterus, conjunctival inject ion, or conjunctival petechiae. Oropharynx is clear without lesions. Dentition is in fair repair. Mucous membranes are moist. There is no tenderness over the sinuses. NECK: Supple without palpable lymphadenopathy or thyromegaly. CHEST: Clear to auscultation bilaterally without adventitious soun ds. Respiratory effort is normal. The median sternotomy intact without erythema, drainage or instab ility. CARDIOVASCULAR: Regular rate and rhythm without murmurs, gallops, or rubs. ABDOMEN: Soft, nontender, nondistended. There is no palpable organomegaly. Bowel sounds are present. MUSCULOSKELE WILLY: The left lower third of the saphenous harvest site has faint surrounding erythema with desquama tion of skin; there is no warmth or tenderness; incision line is intact; remainder of incision is wit hout surrounding erythema. There is trace to 1+ lower extremity edema on the left. SKIN: See muscu loskeletal. There are no stigmata of endocarditis. The skin is warm and dry to touch. NEUROLOGIC: Patient is alert and interacts appropriately with examiner. Cranial nerves 2-12 are grossly intact. Sensation is grossly intact. LYMPHATICS: There are no cervical or supraclavicular nodes; there ar e no left inguinal nodes or lymphangitis. LABORATORY DATA: White blood cell count 7.9, hematocrit 42.3, platelets 241, neutrophils 56%, lympho cytes 21%, monocytes 14%, eosinophils 8%. Serum creatinine is 1.0. Blood cultures x2 sets are no gr owth. Respiratory pathogen panel by PCR is negative. Ultrasound as noted above. IMPRESSION: Left lower extremity saphenous harvest site erythema: Erythema is consistent with cellu litis which has resolved. Desquamating skin supports resolution of cellulitis. I think current find ings are related to wound healing and residual skin change after resolved cellulitis. Do not think a ctive cellulitis present currently. Favor stopping antibiotics with observation off antibiotics at t his point in time. If it were recur, then would have increased concerns about possible role of super infected hematoma as a contributor. RECOMMENDATIONS: 1. Discontinue vancomycin. 2. Observe off antibiotics. 3. Elevate lower extremity as feasible. 4. Follow up in our office next week for repeat assessment. 5. Notify my office for any increasing erythema, edema, drainage, or pain in left lower extremity. Thank you for this consultation. We will continue to follow the patient as an outpatient. /[id number]/MODL
== END 2017-07-11 16:50 | disposition home or self-care (01) | DRG 313 ==
LOC: F2W 22:41 → OBSVTOIN 07-10 14:53
PROVIDERS: ADMIT Internal Medicine; ATTEND Internal Medicine
DX: R07.89 Other chest pain (principal); L03.116 Cellulitis of left lower limb; I48.91 Unspecified atrial fibrillation; Z79.01 Long term (current) use of anticoagulants; Z95.1 Presence of aortocoronary bypass graft; Z87.891 Personal history of nicotine dependence; Z23 Encounter for immunization
CPT/HCPCS: A9500; G0008; G0378; J2785; J3370; Q9967

== ENCOUNTER 2017-08-28 11:44 | Emergency (ER) | payer OTHER ==
--- NOTE | 2017-08-28 12:01 | CPEKG ---
Heart Rate: 67 RR Interval: 896 P-R Interval: 200 QRSD Interval: 74 QT Interval: 392 QTC Interval: 414 P [place]: 100 QRS [place]: 108 T Wave [place]: 68 EKG Severity - DEFECTIVE ECG - EKG Impression: RIGHT AND LEFT ARM LEADS REVERSED, PLEASE REPEAT ECG Electronically Signed By: Julio Cesar Becerril 28-Aug-2017 12:24:12
[2017-08-28] MEDS ORDERED: ASPIRIN 81 MG CHEWABLE TAB PO ONE (12:05)
[2017-08-28] MEDS ORDERED: NS 500 ML IV ONE (12:05)
--- NOTE | 2017-08-28 12:13 | EDPHY ---
H & P Stated Complaint: palpatations and sob starting at 0500 today Time Seen by Provider: 08/28/17 11:54 HPI/ROS: CHIEF COMPLAINT: Chest discomfort HISTORY OF PRESENT ILLNESS: Patient is a 72-year-old man with a history of 2 vessel CABG in June as well as atrial fibrillation post ablation several years ago. He states that he does not have history of coronary artery disease but had scarring from previous ablations in his LAD thus requiring the CABG. He has been recovering well but he states he has not felt great during cardiac rehab. This morning around 5:00 a.m. He felt like his heart was "sloshing". He has not been nauseous or diaphoretic or short of breath. REVIEW OF SYSTEMS: Constitutional: denies: chills, fever, recent illness, recent injury EENTM: denies: blurred vision, double vision, nose congestion Respiratory: denies: cough, shortness of breath Cardiac: See HPI denies: irregular heart rate, lightheadedness, palpitations Gastrointestinal/Abdominal: denies: abdominal pain, diarrhea, nausea, vomiting, blood streaked stools Genitourinary: denies: dysuria, frequency, hematuria, pain Musculoskeletal: denies: joint pain, muscle pain Skin: denies: lesions, rash, jaundice, bruising Neurological: denies: headache, numbness, paresthesia, tingling, dizziness, weakness Hematologic/Lymphatic: denies: blood clots, easy bleeding, easy bruising Immunologic/allergic: denies: HIV/AIDS, transplant EXAM: GENERAL: Well-appearing, well-nourished and in no acute distress. HEAD: Atraumatic, normocephalic. EYES: Pupils equal round and reactive to light, extraocular movements intact, sclera anicteric, conjunctiva are normal. ENT: TMs normal, nares patent, oropharynx clear without exudates. Moist mucous membranes. NECK: Normal range of motion, supple without lymphadenopathy or JVD. LUNGS: Breath sounds clear to auscultation bilaterally and equal. No wheezes rales or rhonchi. HEART: Regular rate and rhythm without murmurs, rubs or gallops. ABDOMEN: Soft, nontender, normoactive bowel sounds. No guarding, no rebound. No masses appreciated. BACK: No CVA tenderness, no spinal tenderness, step-offs or deformities EXTREMITIES: Normal range of motion, no pitting or edema. No clubbing or cyanosis. NEUROLOGICAL: Cranial nerves II through XII grossly intact. Normal speech, normal gait. 5/5 strength, normal movement in all extremities, normal sensation PSYCH: Normal mood, normal affect. SKIN: Warm, dry, normal turgor, no visible rashes or lesions. Source: Patient, Family Exam Limitations: No limitations - Medical/Surgical History Hx Asthma: No Hx Chronic Respiratory Disease: No Hx Diabetes: No Hx Cardiac Disease: Yes Hx Renal Disease: No Hx Cirrhosis: No Hx Alcoholism: No Hx HIV/AIDS: No Hx Splenectomy or Spleen Trauma: No Other PMH: A fib/ Ablation, pvcs. tonsils , bitlat shldr repair ,prostate hypertrophy, esopageal dilatation. 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 - Family History Significant Family History: No pertinent family hx - Social History Smoking Status: Former smoker Alcohol Use: Sober Constitutional: Initial Vital Signs Temperature (C) 36.3 C 08/28/17 11:49 Heart Rate 68 08/28/17 11:49 Respiratory Rate 16 08/28/17 11:49 Blood Pressure 120/70 08/28/17 11:49 O2 Sat (%) 96 08/28/17 11:49 O2 Delivery Mode Room Air Allergies/Adverse Reactions: aminobenzoic acid Allergy (Intermediate, Verified 07/09/17 18:42) Other-Enter Comments Macrolide Antibiotics Allergy (Intermediate, Verified 07/09/17 18:42) Other-Enter Comments melatonin Allergy (Intermediate, Verified 07/11/17 06:38) Other-Enter Comments potassium clavulanate [From Augmentin] Allergy (Intermediate, Verified 07/09/17 18:42) Other-Enter Comments Quinolones Allergy (Intermediate, Verified 07/09/17 18:42) Other-Enter Comments Tetracyclines Allergy (Intermediate, Verified 07/09/17 18:42) Other-Enter Comments potassium clavulanate Allergy (Unknown, Uncoded 06/18/17 14:45) Other-Enter Comments Home Medications: Medication Instructions Recorded Acetaminophen [Tylenol 325mg (*)] 325 mg PO HS PRN 07/09/17 Aspirin [Aspirin 325 mg (*)] 325 mg PO DAILY 07/09/17 Furosemide [Lasix 20 MG (*)] 20 mg PO Q3D PRN 07/09/17 Metoprolol Tartrate [Lopressor 25 12.5 mg PO DAILY 07/09/17 mg (*)] Metoprolol Tartrate [Lopressor 25 25 mg PO HS 07/09/17 mg (*)] Potassium Chloride [Klor-Con M10] 10 meq PO Q3D 07/09/17 Medical Decision Making - Diagnostics EKG Interpretation: An EKG obtained and was read and documented in trace view. Please see trace view for full reading and report. Sinus rhythm, no acute ischemic changes Imaging: I viewed and interpreted images myself (No acute disease) ED Course/Re-evaluation: 1:40 p.m. the patient's testing is reassuring. Patient is telling me that he feels completely better would like to go home. I did offer admission or observation but he declines. Differential Diagnosis: Partial list of the Differential diagnosis considered include but were not limited to; acute coronary disease, pericardial effusion, pleural effusion, pneumonia and although unlikely based on the history and physical exam, I also considered aneurysm, dissection, PE. I discussed these differential diagnoses and the plan with the patient as well as the usual and expected course. The patient understands that the diagnosis is provisional and that in medicine we are not always correct and that further workup is often warranted. Usual and customary warnings were given. All of the patient's questions were answered. The patient was instructed to return to the emergency department should the symptoms at all worsen or return, otherwise to followup with the physician as we discussed. - Data Points Laboratory Results: Laboratory Results 08/28/17 12:10 08/28/17 12:10 Medications Given: Discontinued Medications Aspirin (Aspirin) 324 mg PO EDNOW ONE Stop: 08/28/17 12:06 Last Admin: 08/28/17 12:41 Dose: 324 mg Sodium Chloride (Ns) 500 mls @ 0 mls/hr IV EDNOW ONE; Wide Open PRN Reason: Protocol Stop: 08/28/17 12:06 Last Admin: 08/28/17 12:41 Dose: 500 mls Departure - Departure Disposition: Home, Routine, Self-Care Clinical Impression: Chest pain Qualifiers: Chest pain type: unspecified Qualified Code(s): R07.9 - Chest pain, unspecified Condition: Fair Instructions: Chest Pain (ED) Referrals: Mac Armendariz MD [Primary Care Provider] - As per Instructions
[2017-08-28 12:19] LABS: PLATELET COUNT 207 10^3/uL (150-400)
[2017-08-28 12:28] LABS: INR 0.94 (0.83-1.16); PROTIME(PATIENT) 12.8 SEC (12.0-15.0)
[2017-08-28 13:56] VITALS: BP 135/67
== END 2017-08-28 14:31 | disposition home or self-care (01) ==
DX: R07.9 Chest pain, unspecified (principal); E86.9 Volume depletion, unspecified; Z79.82 Long term (current) use of aspirin; Z87.891 Personal history of nicotine dependence; Z95.1 Presence of aortocoronary bypass graft

== ENCOUNTER 2017-09-02 17:02 | Emergency (ER) | payer OTHER ==
--- NOTE | 2017-09-02 17:17 | EDPHY ---
H & P Stated Complaint: CERVICAL SPINE ISSUES INCREASING TREMORS AND NUMBNESS Time Seen by Provider: 09/02/17 17:17 - Personal History Current Tetanus/Diphtheria Vaccine: Yes - Medical/Surgical History Hx Asthma: No Hx Chronic Respiratory Disease: No Hx Diabetes: No Hx Cardiac Disease: Yes Hx Renal Disease: No Hx Cirrhosis: No Hx Alcoholism: No Hx HIV/AIDS: No Hx Splenectomy or Spleen Trauma: No Other PMH: A fib/ Ablation, pvcs. tonsils , bitlat shldr repair ,prostate hypertrophy, esopageal dilatation. 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 - Social History Smoking Status: Former smoker Constitutional: Initial Vital Signs Temperature (C) 36.6 C 09/02/17 17:11 Heart Rate 71 09/02/17 17:11 Respiratory Rate 17 09/02/17 17:11 Blood Pressure 119/70 09/02/17 17:11 O2 Sat (%) 97 09/02/17 17:11 O2 Delivery Mode Room Air Allergies/Adverse Reactions: aminobenzoic acid Allergy (Intermediate, Verified 09/02/17 17:10) Other-Enter Comments Macrolide Antibiotics Allergy (Intermediate, Verified 09/02/17 17:10) Other-Enter Comments melatonin Allergy (Intermediate, Verified 09/02/17 17:10) Other-Enter Comments potassium clavulanate [From Augmentin] Allergy (Intermediate, Verified 09/02/17 17:10) Other-Enter Comments Quinolones Allergy (Intermediate, Verified 09/02/17 17:10) Other-Enter Comments Tetracyclines Allergy (Intermediate, Verified 09/02/17 17:10) Other-Enter Comments potassium clavulanate Allergy (Unknown, Uncoded 06/18/17 14:45) Other-Enter Comments Home Medications: Medication Instructions Recorded Acetaminophen [Tylenol 325mg (*)] 325 mg PO HS PRN 07/09/17 Aspirin [Aspirin 325 mg (*)] 325 mg PO DAILY 07/09/17 Furosemide [Lasix 20 MG (*)] 20 mg PO Q3D PRN 07/09/17 Metoprolol Tartrate [Lopressor 25 12.5 mg PO DAILY 07/09/17 mg (*)] Metoprolol Tartrate [Lopressor 25 25 mg PO HS 07/09/17 mg (*)] Potassium Chloride [Klor-Con M10] 10 meq PO Q3D 07/09/17 Mag Sulf 09/02/17 Medical Decision Making - Diagnostics Imaging: Discussed imaging studies w/ yard caller Radiologist ED Course/Re-evaluation: CHIEF COMPLAINT: Neck pain HISTORY OF PRESENT ILLNESS: This patient is a 72 year old male complaining of neck pain and bilateral forearm numbness. He has followed up with neurosurgery and is scheduled for cervical spine surgery with Dr. Burden. The patient has noted a tremor in his hands and numbness in his forearms. In the past few days, this numbness extends up his neck and into his face as well. If he tries to walk more than a couple blocks, he begins to have increased neck discomfort and numbness. Dr. Burden recommends an MRI of his c-spine and brain. The patient denies having had any prior neck surgeries. No headache, fever, chest pain, shortness of breath, vomiting, or other associated symptoms. REVIEW OF SYSTEMS: A 10 point review of systems was performed and is negative with the exception of the elements mentioned in the history of present illness. PHYSICAL EXAM: HR, BP, O2 Sat, RR. Temp noted General Appearance: Alert, well hydrated, appropriate, and non-toxic appearing. Head: Atraumatic without scalp tenderness or obvious injury Eyes: Pupils equal, round, reactive to light and accommodation, EOMI, no trauma , no injection. Ears: Clear bilaterally, no perforation, normal landmarks Nose: Atraumatic, no rhinorrhea, clear. Throat: There is no erythema or exudates, no lesions, normal tonsils, mucus membranes moist. Neck: Supple, 2+ carotid upstroke, nontender, no lymphadenopathy. Respiratory: No retractions, no distress, no wheezes, and no accessory muscle use. Lungs are clear to auscultation bilaterally. Cardiovascular: Regular rate and rhythm, no murmurs, rubs, or gallops. Bilateral carotid, radial, dorsalis pedis, and posterior tibial pulses intact. Good capillary refill all extremities. Gastrointestinal: Abdomen is soft, nontender, non-distended, no masses, no rebound, no guarding, no peritoneal signs. Musculoskeletal: Normal active ROM of all extremities, atraumatic. Neurological: Alert, appropriate, and interactive. The patient has normal DTRs and non-focal cranial nerves, motor, sensory, and cerebellar exam. Skin: No rashes, good turgor, no nodules on palpation. Past medical history: Atrial fibrillation s/p ablation. Prostate hypertrophy. PVCs. Past surgical history: 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. Tonsillectomy. Bilateral shoulder repair. Esophageal dilation. Family history: Noncontributory. Social history: Musician. . at bedside. Lives in [place]. DIFFERENTIAL DIAGNOSIS: The differential diagnosis for the patient's back pain included but was not limited to musculo-skeletal pain, epidural abscess, herniated disk, spinal fracture, cervical stenosis. MEDICAL DECISION [id number] y/o male presents with neck pain and associated numbness and paresthesias in his upper extremities, neck, and face. Plan for MRI of the neck without contrast as well as MRI of the brain with and without contrast. 17:45 Patient requests a an IV magnesium infusion, which he generally does at home. I will provide this. 18:[address] Silva, radiologist. Cervical spine stenosis present at C4- C5, C5-C6, and C6-C7. No cord impingement at this time. 18:53 Reassessed patient. Discussed results of MRI. Plan to discharge home in good condition. He will follow up with Dr. Burden, neurosurgeon, as scheduled. I have informed Dr. Burden of the patient's MRI results. The patient is comfortable with this plan. - Data Points Medications Given: Discontinued Medications Magnesium Sulfate/Dextrose (Magnesium Sulf 1 Gm (Premix)) 100 mls @ 100 mls/hr IV EDNOW ONE Stop: 09/02/17 18:40 Last Admin: 09/02/17 18:57 Dose: 100 mls Departure - Departure Disposition: Home, Routine, Self-Care Clinical Impression: Cervical stenosis of spine Condition: Good Instructions: Cervical Spinal Stenosis (ED) Additional Instructions: 1. Follow up with Dr. Burden as scheduled. 2. Return to the emergency department for severe pain, numbness, weakness, tingling, headache, difficulty walking or other complaints. Referrals: Mac Armendariz MD [Primary Care Provider] - As per Instructions Latasha Burden MD [Medical Doctor] - As per Instructions Report Scribed for: Quincy Preston Report Scribed by: Candida Rodriguez Date of Report: 09/02/17 Time of Report: 17:20
[2017-09-02] MEDS ORDERED: MAGNESIUM SULF 1 GM/DEXTROSE 100 ML IV ONE (17:41)
[2017-09-02] MEDS ORDERED: GADOBUTROL 10 ML VIAL IVP ONE (17:47)
[2017-09-02 19:38] VITALS: BP 111/71
== END 2017-09-02 19:38 | disposition home or self-care (01) ==
DX: M48.02 Spinal stenosis, cervical region (principal); Z79.82 Long term (current) use of aspirin; Z87.891 Personal history of nicotine dependence
CPT/HCPCS: 70553; 72141; 96365; 96366; 99285; A9585; J3475

== ENCOUNTER 2017-09-10 16:28 | Inpatient (IN) | payer OTHER ==
--- NOTE | 2017-09-10 16:43 | EDPHY ---
H & P Stated Complaint: Increasing numbness to throat and left side of face over the last day. Time Seen by Provider: 09/10/17 16:42 HPI/ROS: HPI CHIEF COMPLAINT: Left-sided facial numbness and tingling, trouble swallowing HISTORY OF PRESENT ILLNESS: This patient is a 72-year-old male, he has a history of cardiac arrhythmia requiring ablation, additionally CABG, he had his CABG back in June, he presents to the emergency room by private vehicle with left-sided facial numbness and tingling, left-sided tongue numbness and tingling and he states he thought his speech was a little bit slurred and thought that he had trouble swallowing. Patient reports the symptoms started an hour ago while he was sitting down. At rest. He initially contribute his symptoms due to significant spinal stenosis that he suffers from, and is due to have surgery however he called his doctor was told to come to the emergency room. Upon arrival to the emergency room is brought into ER room 3 where I greeted him. On his neurological exam he is able to swallow however still complains of left- sided facial numbness and tingling there is a very subtle left sided facial droop or asymmetry of the corner of the left side of his mouth. He denies any chest pain or shortness of breath, denies headache. Denies focal weakness. Patient denies being on any blood thinners. Past Medical History: Cardiac arrhythmia, atrial fibrillation, chronic neck and chronic back pain, spinal stenosis, CABG Past Surgical History: CABG in June, cardiac ablation Social History: Denies daily use of drugs alcohol tobacco Family History: Noncontributory ROS REVIEW OF SYSTEMS: A comprehensive 10 point review of systems is otherwise negative aside from elements mentioned in the history of present illness. Exam Constitutional appears well nontoxic triage nursing summary reviewed, vital signs reviewed, awake/alert. Eyes normal conjunctivae and sclera, EOMI, PERRLA. HENT normal inspection, atraumatic, moist mucus membranes, no epistaxis, neck supple/ no meningismus, no raccoon eyes. Respiratory clear to auscultation bilaterally, normal breath sounds, no respiratory distress, no wheezing. Cardiovascular rate normal, regular rhythm, no murmur, no edema, distal pulses normal. Gastrointestinal soft, non-tender, no rebound, no guarding, normal bowel sounds, no distension, no pulsatile mass. Genitourinary no CVA tenderness. Musculoskeletal no midline vertebral tenderness, full range of motion, no calf swelling, no tenderness of extremities, no meningismus, good pulses, neurovascularly intact. Skin pink, warm, & dry, no rash, skin atraumatic. Neurologic neurological exam reviewed he has a very subtle left facial droop compared to the corner of his mouth on the left is slightly droopy compared to the right 1, his speech is normal, is able swallow, complains of numbness and tingling to the left side of his face, otherwise no focal neuro deficit, awake , alert and oriented x 3, AAOx3, moves all 4 extremities equally, motor intact, sensory intact, CN II-XII intact, normal cerebellar, normal vision, normal speech. Psychiatric normal mood/affect. Heme/Lymph/Immune no lymphadenopathy. Differential Diagnosis: Includes but is not limited to in a particular order acute CVA, intracranial bleed, infarct Medical Decision Making: Plan for this patient given his symptoms started an hour ago will activate him as a stroke alert. Will proceed with CT scan head without contrast blood work and EKG. Will consult neurology. Re-evaluation: CT HEAD: W/O: Negative for acute bleed or infarct called to me by Dr. Myers. 1713: Spoke with [facility]. Discussed the case in detail. They will evaluate the patient. EKG interpretation by me on record in [employer] system. Impression time of EKG 1709, sinus rhythm rate of 69 appear interval noted 216. No ST elevation no ST depression no significant T-wave abnormalities. No signs of cardiac arrhythmia. 1733: Spoke with [facility]: Dr. Holland, reviewed the case in detail. The patient was also assessed by Dr. Holland over Telemetry camera, recommends admission for further evaluation of CVA/TIA, does not recommend the patient gets tPA. The reason for not giving tPA With Dr. Holland, is that the patient is at 3 months from CABG. Additionally the symptoms are very mild and improving. The risk of giving tPA would out weigh the benefit. Does recommend the patient gets admitted for further CVA evaluation. 1740: Spoke with Hospalist service Dr. Jesus she has agreed to admit the patient. I have updated the patient on his test results and clinical diagnosis. He has agreed for admission for TIA. I did order him a full-dose aspirin at Dr. Holland's Request. Dr. Holland did not feel he needs Emergent CT ANGIO/head/neck. MR Inpatient. NIHSS 3.0. (numbness in face, Dysarthria, marcia facial droop) TIME OF NIHSS: upon arrival 1642. Chest x-ray one view reviewed by me. Negative for acute cardiopulmonary disease. Source: Patient - Personal History Current Tetanus Diphtheria and Acellular Pertussis (TDAP): Yes - Medical/Surgical History Hx Asthma: No Hx Chronic Respiratory Disease: No Hx Diabetes: No Hx Cardiac Disease: Yes Hx Renal Disease: No Hx Cirrhosis: No Hx Alcoholism: No Hx HIV/AIDS: No Hx Splenectomy or Spleen Trauma: No Other PMH: A fib/ Ablation, pvcs,. tonsils , bitlat shldr repair ,prostate hypertrophy, esopageal dilatation. 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 - Social History Smoking Status: Former smoker Constitutional: Initial Vital Signs Temperature (C) 36.3 C 09/10/17 16:28 Heart Rate 72 09/10/17 16:28 Respiratory Rate 16 09/10/17 16:28 Blood Pressure 124/63 H 09/10/17 16:28 O2 Sat (%) 96 09/10/17 16:28 O2 Delivery Mode Room Air Allergies/Adverse Reactions: aminobenzoic acid Allergy (Intermediate, Verified 09/02/17 17:10) Other-Enter Comments Macrolide Antibiotics Allergy (Intermediate, Verified 09/02/17 17:10) Other-Enter Comments melatonin Allergy (Intermediate, Verified 09/02/17 17:10) Other-Enter Comments potassium clavulanate [From Augmentin] Allergy (Intermediate, Verified 09/02/17 17:10) Other-Enter Comments Quinolones Allergy (Intermediate, Verified 09/02/17 17:10) Other-Enter Comments Tetracyclines Allergy (Intermediate, Verified 09/02/17 17:10) Other-Enter Comments potassium clavulanate Allergy (Unknown, Uncoded 06/18/17 14:45) Other-Enter Comments Home Medications: Medication Instructions Recorded Metoprolol Tartrate [Lopressor 25 12.5 mg PO 00,12 07/09/17 mg (*)] Acetaminophen [Tylenol 325mg (*)] 650 mg PO Q4HRS PRN tab 09/11/17 Carbidopa/Levodopa 25/100Mg 1 tab PO DAILY #30 tab 09/11/17 [Sinemet 25/100 MG (*)] Medical Decision Making - Data Points Laboratory Results: Laboratory Results 09/10/17 16:35 09/10/17 16:35 Medications Given: Discontinued Medications Aspirin Buffered (Aspirin Ec) 325 mg PO EDNOW ONE Stop: 09/10/17 17:41 Last Admin: 09/10/17 17:53 Dose: Not Given Aspirin Buffered (Aspirin Ec) 81 mg PO DAILY [facility] Stop: 03/10/18 08:59 Last Admin: 09/11/17 08:21 Dose: Not Given Atorvastatin Calcium (Lipitor) 40 mg PO DAILY [facility] Stop: 03/09/18 17:59 Last Admin: 09/11/17 08:21 Dose: Not Given Enoxaparin Sodium (Lovenox) 40 mg SC DAILY [facility] Stop: 03/10/18 08:59 Last Admin: 09/11/17 14:37 Dose: 40 mg Sodium Chloride (Ns) 1,000 mls @ 0 mls/hr IV ONCE ONE; Wide Open PRN Reason: Protocol Stop: 09/10/17 16:52 Last Admin: 09/10/17 17:06 Dose: 1,000 mls Magnesium Hydroxide (Milk Of Magnesia) 30 ml PO DAILY PRN PRN Reason: Constipation Stop: 03/10/18 11:28 Last Admin: 09/11/17 11:51 Dose: 30 ml Metoprolol Tartrate (Lopressor) 6.25 mg PO 00,12 [facility] Stop: 03/10/18 00:00 Last Admin: 09/11/17 11:54 Dose: 6.25 mg Departure - Departure Disposition: [facility] Inpatient Acute Clinical Impression: TIA (transient ischemic attack) Qualifiers: Transient cerebral ischemia type: unspecified Qualified Code(s): G45.9 - Transient cerebral ischemic attack, unspecified Condition: Fair
[2017-09-10] MEDS ORDERED: NS 1,000 ML IV ONE (16:51)
[2017-09-10 16:59] LABS: PLATELET COUNT 197 10^3/uL (150-400)
--- NOTE | 2017-09-10 17:12 | CPEKG ---
Heart Rate: 69 RR Interval: 870 P-R Interval: 216 QRSD Interval: 72 QT Interval: 384 QTC Interval: 412 P [place]: 62 QRS [place]: 111 T Wave [place]: 74 EKG Severity - OTHERWISE NORMAL ECG - EKG Impression: SINUS RHYTHM EKG Impression: RIGHT AXIS DEVIATION Electronically Signed By: Francis Jonas 10-Sep-2017 23:44:44
[2017-09-10 17:32] LABS: INR 0.97 (0.83-1.16); PROTIME(PATIENT) 13.1 SEC (12.0-15.0)
[2017-09-10] MEDS: ASPIRIN EC 325 MG TAB PO ONE ×2 (17:44→17:53)
[2017-09-10] MEDS ORDERED: LABETALOL HCL 5 MG/ML 20 ML MDV IVP PRN (17:46)
--- NOTE | 2017-09-10 17:46 | PDCONSULT ---
[facility] Note: [facility] Tele[facility] Note Demographics Consult Type: Acute Stroke First Name: Dominick Last Name: Armando Date of : 1945 Age: 72 Referring Provider: Dr Merino Time of initial page (): 09/10/2017 17:01 Time of return call (): 09/10/2017 17:05 Time Ready to Initiate Telemed Consult (): 09/10/2017 17:06 HPI Additional History (Free Text): 72 year old man with onset of left facial numbness and subjective difficulty swallowing. He may have some difficulty talking but with focused concentration his talking is normal. The symptoms began an hour and 1/2 ago . approximately 3: 30 p.m. he is supposed to have cervical surgery for stenosis and thought the symptoms may be related to this problem. Therefore he first called the Neurosurgical office who referred him to the emergency department. 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 Is not currently taking aspirin therapy in preparation for anticipated cervical surgery. [facility]-- Past Medical History: Atrial Fibrillation, s/p ablation Past Surgical History: CABG Exam Vitals: vital signs reviewed Mental Status: awake, alert + oriented x 3, follows commands NIHSS Time (): 09/10/2017 17:40 LOC 1a: 0 = Alert; keenly responsive LOC 1b: 0 = Answers both questions correctly LOC Commands: 0 = Performs both tasks correctly Best Gaze: 0 = Normal Visual: 0 = No visual loss Facial Palsy: 0 = Normal symmetrical movements Motor Arm L: 0 = No drift; limb holds 90 (or 45) degrees for full 10 seconds Motor Arm R: 0 = No drift; limb holds 90 (or 45) degrees for full 10 seconds Motor Leg L: 0 = No drift; leg holds 30-degree position for full 5 seconds Motor Leg R: 0 = No drift; leg holds 30-degree position for full 5 seconds Limb Ataxia: 0 = Absent Sensory: 0 = Normal; no sensory loss Best Language: 0 = No aphasia; normal Dysarthria: 0 = Normal Extinction + Inattention: 0 = No abnormality NIHSS: [address]: no bleed Assessment: Possilbe TIA/stroke symptoms due to unilateral nature of symptoms. Non-disabling and probably improving at this time. Plan Labs: HgbA1c, Lipid Panel Imaging: MRI brain without Diagnostic test: echocardiogram with bubble Medication: aspirin 81mg per day VTE Prophylaxis: SCD, Heparin 5000 units subcutaneously q 12 hours Other: telemetry monitoring, I have discussed my recommendations with the referring provider Additional Recommendations: Either CTA or MRA head and neck for further work up. Disposition: admit [facility] Telemedicine: Interactive 2 way audio and visual telecommunication technology was utilized during this visit. Provider Location: [place]
[2017-09-10] MEDS ORDERED: ACETAMINOPHEN 325 MG TAB PO PRN (17:49)
[2017-09-10] MEDS ORDERED: ONDANSETRON DISINTEGRATING 4 MG TAB PO PRN (17:49)
[2017-09-10] MEDS ORDERED: ONDANSETRON 4 MG/2 ML VIAL IVP PRN (17:49)
--- NOTE | 2017-09-10 18:03 | PDGENHP ---
History and Physical - Chief Complaint facial numbness, difficulty swallowing - History of Present Illness 72 yo male with h/o spinal stenosis, CAD s/p CABG in 06/2017 and A fib s/p ablation presented to ED with difficulty swallowing and facial numbness. His symptoms started at 3:30 pm om day of arrival. He ate tacos and chile relleno for lunch, then noticed 10 minutes after eating, he suddenly had difficulty swallowing saliva. He was then able to swallow, but felt like only the right side was working. He also felt numbness of his left upper lip and his oral mucosa and neck on the left side also felt numb. He notes the neck numbness was possibly on both sides. He denies odynophagia. He is now able to swallow normally. He still feels numbness and tingling in his left face around his lips. He then states the numbness is not new, but seemed like it got worse today when the swallowing trouble began. He thinks this is a symptom of his cervical stenosis and he has surgery scheduled 09/[address] Burden. In the ED, a non-con head CT was negative for bleed or infarct. He is admitted for TIA workup. History Information - Allergies/Home Medication List Allergies/Adverse Reactions: aminobenzoic acid Allergy (Intermediate, Verified 09/02/17 17:10) Other-Enter Comments Macrolide Antibiotics Allergy (Intermediate, Verified 09/02/17 17:10) Other-Enter Comments melatonin Allergy (Intermediate, Verified 09/02/17 17:10) Other-Enter Comments potassium clavulanate [From Augmentin] Allergy (Intermediate, Verified 09/02/17 17:10) Other-Enter Comments Quinolones Allergy (Intermediate, Verified 09/02/17 17:10) Other-Enter Comments Tetracyclines Allergy (Intermediate, Verified 09/02/17 17:10) Other-Enter Comments potassium clavulanate Allergy (Unknown, Uncoded 06/18/17 14:45) Other-Enter Comments Home Medications: Metoprolol Tartrate [Lopressor 25 mg (*)] 12.5 mg PO 00,12 07/09/17 [Last Taken 09/10/17 12:00] I have personally reviewed and updated: family history, medical history, social history, surgical history - Past Medical History atrial fibrillation, coronary artery disease Additional medical history: A fib s/p ablation 2004, ANDREA ligation 06/2017. Ablation for PVC's 2014, 2015. s/p CABG 06/2017, pt denies CAD, states CABG was 2/2 injury to LAD from prior angiogram. hypertension - Surgical History Reports: coronary bypass surgery, spinal surgery - Family History Positive for: CAD - Social History Smoking Status: Former smoker Alcohol Use: None Drug Use: None Additional social history: Lives independently with his who is present at the bedside Review of Systems Review of Systems: ROS: 10pt was reviewed & negative except for what was stated in HPI & below Physical Exam Physical Exam: Temp Pulse Resp BP Pulse Ox 36.6 C 64 16 113/69 94 09/10/17 18:00 09/10/17 18:00 09/10/17 18:00 09/10/17 18:00 09/10/17 18:00 Constitutional: no apparent distress Eyes: PERRL Ears, Nose, Mouth, Throat: moist mucous membranes Cardiovascular: regular rate and rhythym Respiratory: no respiratory distress, clear to auscultation Gastrointestinal: normoactive bowel sounds, soft, non-tender abdomen Skin: warm Musculoskeletal: full muscle strength Neurologic: AAOx3, other (no facial droop, decreased sensation left upper lip and neck. speech fluent, pronator drift neg) Psychiatric: interacting appropriately Lab Data & Imaging Review 09/10/17 16:35 09/10/17 16:35 WBC 6.18 10^3/uL (3.80-9.50) 09/10/17 16:35 RBC 5.00 10^6/uL (4.40-6.38) 09/10/17 16:35 Hgb 15.6 g/dL (13.7-17.5) 09/10/17 16:35 POC Hgb 16.3 gm/dL (13.7-17.5) 09/10/17 16:55 Hct 46.1 % (40.0-51.0) 09/10/17 16:35 POC Hct 48 % (40-51) 09/10/17 16:55 MCV 92.2 fL (81.5-99.8) 09/10/17 16:35 MCH 31.2 pg (27.9-34.1) 09/10/17 16:35 MCHC 33.8 g/dL (32.4-36.7) 09/10/17 16:35 RDW 12.6 % (11.5-15.2) 09/10/17 16:35 Plt Count 197 10^3/uL (150-400) 09/10/17 16:35 MPV 10.2 fL (8.7-11.7) 09/10/17 16:35 Neut % (Auto) 70.8 % (39.3-74.2) 09/10/17 16:35 Lymph % (Auto) 16.8 % (15.0-45.0) 09/10/17 16:35 Pitkin % (Auto) 9.4 % (4.5-13.0) 09/10/17 16:35 Eos % (Auto) 1.9 % (0.6-7.6) 09/10/17 16:35 Baso % (Auto) 0.8 % (0.3-1.7) 09/10/17 16:35 Nucleat RBC Rel Count 0.0 % (0.0-0.2) 09/10/17 16:35 Absolute Neuts (auto) 4.37 10^3/uL (1.70-6.50) 09/10/17 16:35 Absolute Lymphs (auto) 1.04 10^3/uL (1.00-3.00) 09/10/17 16:35 Absolute Monos (auto) 0.58 10^3/uL (0.30-0.80) 09/10/17 16:35 Absolute Eos (auto) 0.12 10^3/uL (0.03-0.40) 09/10/17 16:35 Absolute Basos (auto) 0.05 10^3/uL (0.02-0.10) 09/10/17 16:35 Absolute Nucleated RBC 0.00 10^3/uL (0-0.01) 09/10/17 16:35 Immature Gran % 0.3 % (0.0-1.1) 09/10/17 16:35 Immature Gran # 0.02 10^3/uL (0.00-0.10) 09/10/17 16:35 PT 13.1 SEC (12.0-15.0) 09/10/17 16:35 INR 0.97 (0.83-1.16) 09/10/17 16:35 POC Sodium 140 mEq/L (135-145) 09/10/17 16:55 Sodium 142 mEq/L (135-145) 09/10/17 16:35 POC Potassium 3.9 mEq/L (3.3-5.0) 09/10/17 16:55 Potassium 4.2 mEq/L (3.5-5.2) 09/10/17 16:35 POC Chloride 101 mEq/L (97-110) 09/10/17 16:55 Chloride 103 mEq/L (97-110) 09/10/17 16:35 Carbon Dioxide 28 mEq/l (22-31) 09/10/17 16:35 Anion Gap 11 mEq/L (8-16) 09/10/17 16:35 POC BUN 9 mg/dL (7-23) 09/10/17 16:55 BUN 10 mg/dL (7-23) 09/10/17 16:35 Creatinine 1.1 mg/dL (0.7-1.3) 09/10/17 16:35 POC Creatinine 1.3 mg/dL (0.7-1.3) 09/10/17 16:55 Estimated GFR > 60 09/10/17 16:35 Glucose 96 mg/dL (70-100) 09/10/17 16:35 POC Glucose 104 mg/dL (70-100) H 09/10/17 16:55 Calcium 9.6 mg/dL (8.5-10.4) 09/10/17 16:35 Troponin I < 0.012 ng/mL (0.000-0.034) 09/10/17 16:35 Visualized and Interpreted Chest x-ray results: Yes Chest X-Ray results: no infiltrate Visualized and Interpreted EKG results: Yes EKG Interpretation: Positive for: normal sinsus rhythm Assessment & Plan Assessment: Facial / neck paresthesias and dysphagia - symptoms may be c/w TIA. Also consider cervical spine disease as source, though wouldn't expect facial symptoms to come from C-spine. CT head neg for bleed or infarct. Pt has been off ASA and Eliquis while awaiting surgery for spinal stenosis. -admit for TIA w/u including MRI / MRA head and neck now -monitor on telemetry (note h/o A fib s/p ANDREA ligation, off AC) -full dose ASA now, cont ASA 81 mg daily (pt refusing as doesn't want to delay cervical surgery, see below). Discussed risks. -echo pending -check lipids, start statin -check a1c -neurology consult for am Cervical stenosis with myelopathy - has surgery scheduled for 09/[address] Burden, hoping to get this done sooner. Off ASA and Eliquis and refusing ASA today. -Discussed with Dr. Munroe, neurosurgery will consult in am regarding possibility of symptoms being related to his cervical dz -Neurosurg recommends ASA for now given above A fib s/p ablation and ANDREA ligation - off Eliquis, in NSR. -cont 1/2 dose metoprolol Hypertension - currently normotensive, 1/2 dose BB as above CAD s/p CABG 06/2017- pt believes this was due to LAD injury from angiogram and subsequent narrowing rather than CAD. CP free, EKG non-ischemic. -recommend continuing ASA as above -cont statin, BB DVT PPLX - lovenox DNR Dispo - inpt, anticipate >48 hrs hospitalization for TIA / stroke workup and worsening cervical myelopathy symptoms
[2017-09-10] MEDS ORDERED: GADOBUTROL 10 ML VIAL IVP ONE (19:19)
[2017-09-10] MEDS: ATORVASTATIN CALCIUM 40 MG TAB PO SCH (19:58)
[2017-09-11] MEDS: METOPROLOL TARTRATE 25 MG TAB PO SCH ×2 (00:31→11:54)
--- NOTE | 2017-09-11 07:29 | SOAPPROG ---
SOAP Progress Note Assessment/Plan: Assessment: 72 yo male with known cervical stenosis who is scheduled for a cervical fusion on 09/[address] Burden. Came in yesterday with stroke-like symptoms including left upper lip/teeth numbness, swallowing difficulty and neck paresthesias which resolved after 1 hour. Head/neck MRI and CTHead negative for stroke or occlusion to explain symptoms. Pt seems to be back at baseline now and doing fine, but reports worsening right arm/leg paresthesias, weakness. Plan: Hold NSAIDs and ASA. Dr. Foreman will discuss surgery with him today. Discussed with Dr. Burden as well Neurology has been consulted and will see patient today. 09/11/17 07:24 09/11/17 07:27 Subjective: Lying in bed, comfortable currently. Reports several days of worsening left arm/ leg pain, weakness and paresthesias. Currently denies swallowing difficulty. Objective: Vital Signs Temp Pulse Resp BP Pulse Ox 36.4 C 63 18 114/70 99 09/11/17 04:00 09/11/17 04:00 09/11/17 04:00 09/11/17 04:00 09/11/17 04:00 09/10/17 09/11/17 09/12/17 05:59 05:59 05:59 Intake Total 400 Balance 400 PT 13.1 SEC (12.0-15.0) 09/10/17 16:35 INR 0.97 (0.83-1.16) 09/10/17 16:35 Neuro: Speech clear, PERRLA, EOMI Follows commands 5/5 bilat upper and lower ext sensation decreased in LLE particularly left lateral calf ICD10 Worksheet Patient Problems: Problems Problem Status Onset TIA (transient ischemic attack) Acute Acute blood loss anemia Acute CAD in [place] artery Acute Chest pain Acute S/P CABG x 2 Acute ~06/12/17 S/P ablation of atrial fibrillation Acute chronic disease mgmt/transitional care Acute
[2017-09-11] MEDS: ATORVASTATIN CALCIUM 40 MG TAB PO SCH (08:21)
[2017-09-11] MEDS: ENOXAPARIN 40 MG/0.4 ML SYR SC SCH ×2 (08:22→14:37)
--- NOTE | 2017-09-11 08:24 | GCON ---
[f rep st] CONSULTATION NEUROSURGICAL CONSULTATION DATE OF CONSULTATION: 09/11/2017 CHIEF COMPLAINT: Swallowing difficulty and left facial numbness. 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 Burden, who has known cervical stenosis. He was on the surgi ama schedule for a C4-5, C5-6 and C6-7 anterior cervical diskectomy and arthrodesis, however, the pat ient has been having worsening left-sided upper and lower extremity symptoms including pain, paresthe tyler, and weakness. In addition to that, yesterday, the patient developed what he describes as numbn ess in his left upper teeth and lip and side of his face as well as paresthesias in his neck and diff iculty swallowing. The patient was unable to swallow yesterday while eating and had to wait several seconds and ultimately he was able to swallow food and his symptoms completely resolved after 1 hour. Currently, he is back to baseline and has not had any difficulty swallowing since being admitted. The patient underwent evaluation via telemedicine yesterday evening for what was considered an acute stroke. The patient underwent a CTA of the head and neck, as well as a CT scan of the head without c ontrast, all of which were negative for acute stroke. The patient has not taken any blood thinners, in preparation for his upcoming surgery. Specifically, the patient states that he has not taken aspi rin for 8 days. ALLERGIES: Amino benzoate acid, macrolides, melatonin, potassium clavulanate from Augmentin, quinolo kim, tetracycline, and metoprolol. PAST MEDICAL HISTORY: Atrial fibrillation, coronary artery disease with atrial fibrillation status p ost ablation in 2004, ANDREA ligation June 2017, ablation for PVCs in 2014 and , status post CABG in June 2017. PAST SURGICAL HISTORY: Coronary bypass surgery and spine surgery. DATA REVIEW: Lab results: White blood cell count 6.1, hemoglobin 15.6, hematocrit is 46.1, platelet s are 197,000. INR 0.97. Sodium is 140, potassium 3.9, chloride 101, BUN 9, creatinine 1.3. MRA of the head and neck, negative for infarct or acute abnormalities. CT scan of the head without c ontrast was negative for stroke or territorial infarct or intracranial hemorrhage. He has stable pos terior parietal lobe atrophy. PHYSICAL EXAM: GENERAL: Pleasant healthy-appearing 72-year-old male, no apparent distress. HEAD, E ARS, NOSE, THROAT: Within normal limits. EXTREMITIES: Within normal limits. NEUROLOGIC: Patient is awake, alert, and oriented x4. Cranial nerves 2-12 are intact to gross exami nation. Speech is fluent. Tongue is midline. Spinal accessory muscles are intact. There is no fac ial droop. The patient has equal and symmetric strength in all muscle groups of the bilateral upper and lower extremities, with the exception of 5-/5 strength in the left finger extensors. Sensation i s grossly intact to light touch in all dermatome distributions, with the exception of subjective decr eased sensation in the entire left arm and left lateral leg as well as the anterior neck. Reflexes a re 1/4 bilateral biceps and brachioradialis and patellar tendons. There is no Alfaro's and no clonu s. IMPRESSION: This is a 72-year-old gentleman with a history of known cervical stenosis and myelopathy with progressively worsening left upper and lower extremity symptoms as well as imbalance. This is felt to be related to his known cervical stenosis at C4-5, C5-6 and C6-7. The patient is scheduled t o undergo surgery in late September, however, has been recently admitted secondary to symptoms consistent w ith possible stroke, which has been thoroughly worked up and is negative. The patient did present wi th swallowing difficulties and left facial, lip, and teeth numbness, as well as swallowing difficulti es which has resolved. He feels that his myelopathic symptoms are generally worsening as well. PLAN: All the above issues were discussed with the patient in detail as well as Dr. Burden. At this time, the patient will be seen and evaluated by Neurology who has been consulted for their opinion o n his above-mentioned difficulties with swallowing and facial numbness. If he is cleared from a medi ama and neurologic perspective, we will likely proceed with a three-level cervical fusion to include C4-5, C5-6 and C6-7 anterior cervical diskectomy and arthrodesis during his hospitalization. /[id number]/MODL
[2017-09-11] MEDS ORDERED: ASPIRIN EC 81 MG TAB PO SCH (09:00)
[2017-09-11] MEDS ORDERED: ASPIRIN 325 MG TAB PO SCH (09:00)
--- NOTE | 2017-09-11 09:04 | GCON ---
[f rep st] CONSULTATION NEUROLOGIC CONSULTATION REFERRING PHYSICIAN: Cyn Jesus MD HISTORY: The patient is a 72-year-old gentleman who I am asked to see in neurologic consultation prieto barrios the episode that occurred yesterday where he had some acute awareness of some trouble swallowi ng for about 30 minutes while he was having lunch and perhaps a little more tingling in his left face . The patient has a history of severe multilevel spinal stenosis in the cervical region and also has a history of lumbar spinal stenosis. He says that very often when he moves his head in certain posi tions, he can trigger paresthesias in his extremities and even sometimes in his face. He tells me th at the left drooping of the face and a little bit of paresthesias or numbness has been there for many years and he never had any acute explanation for it. The swallowing problem is not a chronic issue he normally deals with. He says that he has been otherwise back to his baseline since he was admitte d. There are no complaints of extremity numbness or weakness. No confusion. There is no obvious al leviating or exacerbating factors except for that outlined above. He has no change in his vision. T here are no prior histories of this type of presentation. He was scheduled for neurosurgery later th is month with Dr. Burden, but they are hoping to do it later this week. He is off his anti-platelet and anticoagulation regimen. This was all in preparation for surgery. He has a history of atrial fi brillation with ablations. REVIEW OF SYSTEMS: A 10-point review of systems unremarkable, except for that noted above. When he was evaluated yesterday acutely, [place] checked in and documented NIH stroke scale of 3, bu t did not feel he should receive tPA given the relatively minor degree of deficit. PAST MEDICAL HISTORY: As outlined above, but also left atrial appendage ligation and coronary bypass in 06/2017. Hypertension. FAMILY HISTORY: Coronary disease. SOCIAL HISTORY: He is a former smoker. He lives independently with his . No alcohol. ALLERGIES: The allergies include macrolide antibiotics, melatonin, potassium, quinolones, tetracycli ne, potassium clavulanate, metoprolol. CURRENT MEDICATIONS: 1. Tylenol. 2. He is not on aspirin, for now. 3. Lipitor had been prescribed. 4. Lovenox. He does not want to take that either for now. 5. Labetalol as needed. 6. Metoprolol as regular. The only medicine he was taking at home prior to admission was metoprolol. PHYSICAL EXAMINATION: VITAL SIGNS: Blood pressure is 113/68, pulse of 63, respirations 12, temperat ure 36.4. GENERAL: He is well developed, in no acute distress. EYES: Clear. NECK: Supple with no bruits or masses. CARDIAC: Regular rate and rhythm. No murmur. EXTREMITIES: No cyanosis or edis a. NEUROLOGIC: He is awake, alert and attentive, and oriented to person, place, time and general sit uation. He has normal concentration and attention as well as preservation of recent and remote memor y. Normal general fund of knowledge and unimpaired language skills. The pupils are 2 mm and reactiv e. Unremarkable fundi. No visual field loss. Extraocular movements are intact. Normal facial sens ation and strength. There is a mild asymmetry with a drooping of the left corner of the mouth, but n ot definite weakness when he uses the muscles. Again, he emphasizes that this is something he has aguilar d for many years. Palate elevates symmetrically. Tongue protrudes midline. No weakness of the head turning or shoulder shrug. Hearing is preserved. Motor exam: Normal muscle bulk and tone with 5/5 strength and no abnormal movements. Sensation is preserved for temperature and light touch. Reflexe s are 2+ and symmetric. No definite Babinski signs. He is not ataxic in the arms or the legs. No a reas of focal sensory loss or neglect. DIAGNOSTIC STUDIES: Brain MRI with minimal white matter disease. No evidence of acute stroke. MR a ngiogram of the head and neck did not show any large vessel stenoses. Echocardiogram is pending. He ad CT showed no significant anomalies outside of normal aging. The laboratory studies have shown LDL cholesterol of 94. Normal INR. Normal CBC. IMPRESSION: The patient has a National Institutes of Health Stroke Scale currently of just 1 with a left facial droop that is probably even old, so no evidence of a new deficit. The exact source of th is event is uncertain, although transient ischemic attack is a possibility given the fact he is off h is anti-platelet and anticoagulation regimen. He was also wondering if this could all be coming from his cervical spine. It is certainly true that perioral paresthesias can be associated with trigemin al nuclear involvement in the high cervical cord and he could very well have some affects there. As I have described above, the paresthesias in the left face and mild facial droop are not new phenomeno n. The swallowing change is. Swallowing dysfunction typically is related to vagal nerve dysfunction and perhaps there is a link there. In any case, the likelihood of an embolism or a significant occl usion is relatively low. I told him I cannot definitively exclude that this is related to his neck, but aspects of it would suggest possible ischemia. In any case, he very strongly wants to proceed fo rward with cervical spine surgery. I do not have any feeling that is inappropriate. Therefore, I wi ll endorse him to stay off the anti-platelet and anticoagulation regimen at his request and then disc harge from the hospital once echocardiogram has been performed to make sure nothing unexpected is see n, and he can follow up as an outpatient. /[id number]/MODL
[2017-09-11] MEDS ORDERED: CARBIDOPA/LEVODOPA 25 MG/100 MG TAB PO PRN (09:24)
--- NOTE | 2017-09-11 10:48 | PDMN ---
Medical Necessity Medical necessity: est los>2mn for facial/neck paresthesias and dysphasia r/t TIA vs stroke vs worsening cervical myelopathy symptoms; admit for TIA/ stroke w /u, tele, neuro and NS/ consults; comorbid CAD s/p CABG, HTN, afib s/p ablation ; per order and H&P 09/10/17
[2017-09-11] MEDS ORDERED: MAGNESIUM HYDROXIDE 30 ML UDCUP PO PRN (11:29)
--- NOTE | 2017-09-11 11:52 | ECHO ---
[email or web address] [address] [address] Main: [phone] Fax: Transthoracic Echocardiogram Name: JEAN MARIE GOMEZ MR#: [id number] Study Date: 09/11/2017 Study Time: 08:09 AM Date of : 1945 Age: 72 year(s) Height: 198.1 cm (78 in.) Weight: 82.55 kg (182 lb.) BSA: 2.17 m2 Gender: Male Examination: Echo Indication: TIA VS CVA, H/O A FIB Image Quality: Adequate Contrast: Requested by: Cyn Jesus BP: 113 mmHg/68 mmHg Heart Rate: Rhythm: Indication: TIA VS CVA, H/O A FIB Procedure Staff Business Information Consultant: Tammi Echavarria RDCS Reading Physician: Ne Pickett MD Requesting Provider: Conclusions: Normal size left ventricle. Mild concentric LV hypertrophy. Normal global systolic LV function. EF is 61 %. No regional wall motion abnormality. Normal diastolic LV function. Normal size right ventricle. Normal RV function. Mild mitral valve regurgitation is present. Mild tricuspid regurgitation is present. The pulmonary artery pressure is normal. Trivial pericardial effusion. Compared with 07/2017 Overall similar findings. No obvious cardiac source of embolism seen on this study. DARIAN is more sensitive to detect cardiac source of embolism. Measurements: Chambers Valvular Assessment AV/MV Valvular Assessment TV/PV Normal Normal Normal Name Value Range Name Value Range Name Value Range Ao Lucia (2D): 3.2 cm (1.4 cm-2.6 AV meanP mmHg ( - ) TR Vmax: 2.42 mm/s ( - ) cm) VIRAJ (VTI): 3.0 cm ( - ) TR PGmax: 23 mmHg ( - ) IVSd (2D): 1.2 cm (0.6 cm-1.1 MV E Vmax: 0.73 m/s ( - ) syst. PAP: 28 mmHg ( - ) cm) MV A Vmax: 0.36 m/s ( - ) PV Vmax: 0.87 m/s (0.6 m/s-0.9 LVDd (2D): 4.0 cm (4.2 cm-5.9 MV E/A: 2.03 ( - ) m/s) cm) MV PHT: 0.067 s ( - ) PV PGmax: 3 mmHg ( - ) LVDs (2D): 2.7 cm (2.1 cm-4 cm) MVA (PHT): 3.3 s ( - ) LVPWd (2D): 1.2 cm (0.6 cm-1 cm) LVOTd 2.2 cm 2.2 cm mm Patient: JEAN MARIE GOMEZ Study Date: 09/11/2017 Page 1 of 2 08:09 AM LVEF (BP): 61 % (>=55 %) RVDd(2D): 3.6 cm (1.9 cm-3.8 cmmm) Continued Measurements: Chambers Valvular Assessment AV/MV Valvular Assessment TV/PV Name Value Name Value Name Value LADs: 3.2 cm MV DecTime: 211 m/s CVP (est.): 5 mmHg LADs Lon.1 cm MV E' Septal: 0.07 m/s LA Area: 17.0 cm2 MV E/E' Septal: 11.00 LA Volume: 50 ml MV E/E' Lateral: 7.00 LA Volume Index: 23.0 ml/m2 RA Area: 19.3 cm2 Additional Vessels Name Value Ao Ascendin.3 cm Inferior Vena Cava: 1.1 cm Findings: Left Ventricle: Normal size left ventricle. Mild concentric LV hypertrophy. Normal global systolic LV function. EF is 61 %. No regional wall motion abnormality. Normal diastolic LV function. Right Ventricle: Normal size right ventricle. Normal RV function. Left Atrium: The left atrium is normal in size. Right Atrium: The right atrium is normal in size. Mitral Valve: The mitral valve is normal in appearance and function. Mild mitral valve regurgitation is present. No mitral stenosis is present. Aortic Valve: The aortic valve is normal in appearance and function. There is no significant aortic valve regurgitation. No aortic valve stenosis is present. Tricuspid Valve: The tricuspid valve is normal in appearance and function. Mild tricuspid regurgitation is present. The pulmonary artery pressure is normal. Right ventricular systolic pressure measures 28mmHg. Pulmonic Valve: The pulmonic valve is normal in appearance and function. There is no pulmonic regurgitation seen. Aorta: The aorta is normal. Normal size aortic root measuring 3.2 cm. Normal size ascending aorta measuring 3.3 cm. IVC: The IVC is normal sized. Pericardium: Trivial pericardial effusion. No pleural effusion. (No Signature Object) Patient: JEAN MARIE GOMEZ Study Date: 09/11/2017 Page 2 of 2 08:09 AM [id number]
[2017-09-11 11:56] VITALS: BP 115/63
--- NOTE | 2017-09-11 13:59 | PDDCSUM ---
Discharge Summary Discharge Summary: DISCHARGE DIAGNOSES: -acute transient dysphagia, resolved, uncertain etiology -chronic perioral paresthesia and facial droop, stable during this admission, uncertain etiology but no evidence of stroke on CT -ongoing and worsening pain paresthesias and weakness related to severe cervical spine stenosis -hx of A Fib s/p ablation complicated by LAD injury -restless leg syndrome CONSULTANTS: Dr. Mitch Burden PROCEDURES: CT scan of head with no evidence of acute abnormality MRI of brain, noncontrast, with no evidence of ischemic disease and no other acute abnormalities Echocardiogram with preserved ejection fraction in the 60s, no concerning valvular abnormalities, very mild pulmonary hypertension Cardiac EKG monitoring HOSPITAL COURSE SUMMARY: This patient presented yesterday with a sudden onset of dysphagia. He has not suffered any symptoms to suggest an aspiration. The dysphagia has completely resolved. This is the 1st time he has ever had symptoms like that. There are no other new associated symptoms. Notably the patient does have some chronic perioral paresthesias and some chronic facial droop which have been unchanged throughout this episode. MRI scanning and CT scanning of the brain showed no abnormal findings that would explain the either his chronic symptoms as above or his dysphagia episode. Here he is swallowing without any difficulty and is able to eat a regular diet without signs of aspiration. There has been no abnormal cardiac rhythm, his echocardiogram is normal, and there are no other specific abnormalities to explain where this episode might have come from from a vascular standpoint. He does have some severe cervical spine stenosis for which he is scheduled for surgery. There was evaluation for whether this could have been an ischemic episode such as a TIA, or due to his cervical spine disease. At this point no specific conclusive diagnosis as the cause of this episode can be made. At this point after review with Neurology and Neurosurgery is felt that he may proceed with his cervical spine surgery in 2 days as previously planned. As he is currently stable he will be discharged from the hospital right now and will return in 2 days for his surgery. As the patient does have some numbness and at least subjective weakness in his legs related to his cervical spine disease it is recommended to him at this point that he use a cane or walker to prevent falls and avoid any injury to his cervical cord or other injuries leading up to surgery. He is agreeable with this. The patient has had restless leg syndrome ongoing, so he is prescribed low dose sinemet at this time to see if it is helpful PENDING TEST RESULTS: None MEDICATION CHANGES: addition of sinemet 25/100 daily for restless leg syndrome FOLLOW-UP PLAN: He will return here in 48 hr for planned cervical spine surgery with Dr. Foreman Greater than 35 minutes bedside and care coordination time today
--- NOTE | 2017-09-11 16:06 | ASMTLACE ---
[facility] Length of stay for Answers: 2 days current admission Acuity / Level of Answers: Yes Care: Did the patient have an inpatient admission? Comorbidities - select Answers: Coronary Artery Disease all that apply Opioid dependence / Chronic pain # of Emergency department Answers: 3-4 visits in the last 6 months Score: 14 Date Signed: 09/11/2017 04:05 PM Electronically Signed By:Shakira Chan RN
--- NOTE | 2017-09-11 16:07 | ASMTCMCOM ---
CM Note CM Note Notes: Met with patient and regarding discharge plan of care. Patient will d/c home today and is scheduled for cervical surgery this upcoming . Patient has used [facility] in the recent past and would like to use again should home care be needed post his upcoming surgery. Patient and decline the need for services at this time. CM will follow-up once patient is admitted to hospital for surgery. Date Signed: 09/11/2017 04:07 PM Electronically Signed By:Shakira Chan RN
== END 2017-09-11 14:55 | disposition home or self-care (01) | DRG 69 ==
LOC: EEVIPCON 16:28 → OBSVTOIN 17:41 → F3N 19:35
PROVIDERS: ADMIT Hospitalist; ATTEND Hospitalist
DX: G45.9 Transient cerebral ischemic attack, unspecified (principal); M48.02 Spinal stenosis, cervical region; R13.19 Other dysphagia; R20.2 Paresthesia of skin; R29.810 Facial weakness; G25.81 Restless legs syndrome; I25.10 Atherosclerotic heart disease of native coronary artery without angina pectoris; N40.0 Benign prostatic hyperplasia without lower urinary tract symptoms; I10 Essential (primary) hypertension; R29.700 NIHSS score 0; Z95.1 Presence of aortocoronary bypass graft; Z87.891 Personal history of nicotine dependence; Z66 Do not resuscitate
CPT/HCPCS: 82947-QW; A9585; J1650

== ENCOUNTER 2017-09-13 08:30 | Inpatient (IN) | payer OTHER ==
[2017-09-13] MEDS ORDERED: ACETAMINOPHEN 500 MG TAB PO ONE (11:23)
[2017-09-13] MEDS ORDERED: morphINE SR 15 MG TAB PO ONE (11:23)
[2017-09-13] MEDS ORDERED: GABAPENTIN 300 MG CAP PO ONE (11:23)
[2017-09-13] MEDS ORDERED: ceFAZolin 2 GM/SWFI 2 GM/20 ML SYR IVP ONE (11:23)
[2017-09-13] MEDS ORDERED: SURGIFLO MATRIX KIT WITH THROMBIN 8 ML TP ONE (11:45)
[2017-09-13] MEDS ORDERED: CHLORHEXIDINE GLUC HIBICLENS 118 ML BTL TP ONE (11:45)
[2017-09-13] MEDS ORDERED: THROMBIN (BOVINE) 20,000 UNIT VIAL TP ONE (11:45)
[2017-09-13] MEDS ORDERED: BACITRACIN 50,000 UNITS/10 ML SYR IRR ONE (11:46)
[2017-09-13] MEDS ORDERED: LR 1,000 ML IV ONE (12:09)
--- NOTE | 2017-09-13 13:24 | PDHPUP ---
History & Physical Update H&P update statement: This history and physical update is based on an assessment of the patient which was completed after admission or registration (within 24 hours), but prior to the surgery/procedure. H&P update: H&P reviewed & patient examined, no change in patient's condition since H&P completed (The patient was scheduled for ACDF with Dr Burden but presented with new neurologic symptoms for which he was recently admitted and discharged. Because of his stenosis and symptoms, he is interested in surgical intervention. I had an extensive conversation with him and his family abot risks and benefits and treatment goals/outcomes, and he is willing to proceed with surgery. All questions answered, sited marked, and consents signed. )
--- NOTE | 2017-09-13 13:26 | POSTOPPROG ---
Post Op Note Date of Operation: 09/14/17 Surgeon: Clarita Gill Sap Bw Architect: DENISE Gill Anesthesia: GET(General Endotracheal) Pre-op Diagnosis: cervical stenosis Post-op Diagnosis: cervical stenosis Indication: cervical stenosis Procedure: C4-7 ACDF Inf/Abcess present in the surg proc area at time of surgery?: No EBL: 50-100 Drains: Efraín SHAFFER Addendum - Addendum .: S: Neck pain, denies any new arm pain O: NAD A&Ox3 MAEx4, 5/5 and equal. Incision c/d/i A/P 72M s/p ACDF C4-7 -Optimize pain management -PT/OT -DVT prophx:TEDS, SCDS, LOVENOX POD -Post xrays pending -Advance diet as tolerated -FLAVIA x1 -Please notify NS with any change in neuro/motor exam
--- NOTE | 2017-09-13 13:43 | PDANEPAE ---
ANE History of Present Illness ACDF C4-7 ANE Past Medical History - Cardiovascular History Hx Hypertension: No Hx Arrhythmias: Yes Hx Chest Pain: No Hx Coronary Artery / Peripheral Vascular Disease: No Hx CHF / Valvular Disease: No Hx Palpitations: No Cardiovascular History Comment: A- FIB/PVC'S. ABLATION X3 LAST 10/2016 - Pulmonary History Hx COPD: No Hx Asthma/Reactive Airway Disease: No Hx Recent Upper Respiratory Infection: No Hx Oxygen in Use at Home: No Hx Sleep Apnea: No Sleep Apnea Screening Result - Last Documented: Positive Pulmonary History Comment: LUNG NODULES W/CHRONIC INF. LAST BRONCH 01/2015 - Neurologic History Hx Cerebrovascular Accident: No Hx Seizures: No Hx Dementia: No - Endocrine History Hx Diabetes: No Hypothyroid: No Hyperthyroid: No Obesity: no - Renal History Hx Renal Disorders: Yes Renal History Comment: BPH SOME IMPROVEMENT WITH GREEN LIGHT LASER - Liver History Hx Hepatic Disorders: No - Neurological & Psychiatric Hx Hx Neurological and Psychiatric Disorders: Yes Neurological / Psychiatric History Comment: ? recent TIA - Cancer History Hx Cancer: No - Congenital Disorder History Hx Congenital Disorders: No - GI History GERD: no Hx Gastrointestinal Disorders: No - Other Health History Other Health History: DDD/STENOSIS - Chronic Pain History Chronic Pain: Yes (RIB CAGE UPPER MUSCLES) - Surgical History Prior Surgeries: CARDIAC ABLATION X3 MOST RECENT 10/2016 NAKUL. BRONCHOSCOPY 2014. DONNA SHOULDER RTC. GREEN LIGHT LASER WITH POST RT DVT ANE Review of Systems Review of Systems: - Exercise capacity METS (RN): 3 METS ANE Patient History - Allergies Allergies/Adverse Reactions: aminobenzoic acid Allergy (Intermediate, Verified 09/02/17 17:10) Other-Enter Comments Macrolide Antibiotics Allergy (Intermediate, Verified 09/02/17 17:10) Other-Enter Comments melatonin Allergy (Intermediate, Verified 09/02/17 17:10) Other-Enter Comments potassium clavulanate [From Augmentin] Allergy (Intermediate, Verified 09/02/17 17:10) Other-Enter Comments Quinolones Allergy (Intermediate, Verified 09/02/17 17:10) Other-Enter Comments Tetracyclines Allergy (Intermediate, Verified 09/02/17 17:10) Other-Enter Comments dexamethasone Allergy (Verified 09/13/17 12:31) potassium clavulanate Allergy (Unknown, Uncoded 06/18/17 14:45) Other-Enter Comments asthma inhalers Allergy (Uncoded 09/13/17 12:31) - Home Medications Home Medications: Metoprolol Tartrate [Lopressor 25 mg (*)] 12.5 mg PO 00,12 07/09/17 [Last Taken 09/13/17 12:00] Herbals/Supplements -Info Only 1 ea PO DAILY 09/13/17 [Last Taken Unknown] guaiFENesin [Mucinex 600 MG (*)] 600 mg PO BID 09/13/17 [Last Taken 09/13/17 13: 00] - NPO status NPO Since - Liquids (Date): 09/13/17 NPO Since - Liquids (Time): 00:00 NPO Since - Solids (Date): 09/13/17 NPO Since - Solids (Time): 00:00 - Smoking Hx Smoking Status: Former smoker - Family Anes Hx Family Hx Anesthesia Complications: NEG ANE Labs/Vital Signs - Vital Signs Blood Pressure: 130/74 Heart Rate: 72 Respiratory Rate: 14 O2 Sat (%): 93 Height: 198.12 cm Weight: 81.647 kg ANE Physical Exam - Airway Neck exam: decreased ROM Mallampati Score: Class 2 Mouth exam: normal dental/mouth exam - Pulmonary Pulmonary: clear to auscultation - Cardiovascular Cardiovascular: regular rate and rhythym - ASA Status ASA Status: III ANE Anesthesia Plan Anesthesia Plan: general endotracheal anesthesia
[2017-09-13] MEDS ORDERED: fentaNYL 250 MCG/5 ML INJ ONE (13:52)
[2017-09-13] MEDS ORDERED: PROPOFOL/EMULSION 500 MG/50 ML BOTTLE IV ONE (13:52)
[2017-09-13] MEDS ORDERED: DEXAMETHASONE 4 MG/ML VIAL ONE (13:53)
[2017-09-13] MEDS ORDERED: ROCURONIUM 50 MG/5 ML VIAL ONE (13:53)
[2017-09-13] MEDS ORDERED: diphenhydrAMINE 25 MG CAP PO PRN (14:18)
[2017-09-13] MEDS ORDERED: ONDANSETRON 4 MG/2 ML VIAL IVP PRN ×2 (14:18→17:55)
[2017-09-13] MEDS ORDERED: POLYETHYLENE GLYCOL 3350 17 GM PKT PO PRN (14:18)
[2017-09-13] MEDS ORDERED: BISACODYL 10 MG SUPP PR PRN (14:18)
[2017-09-13] MEDS ORDERED: MAGNESIUM HYDROXIDE 30 ML UDCUP PO PRN (14:18)
[2017-09-13] MEDS ORDERED: ONDANSETRON DISINTEGRATING 4 MG TAB PO PRN (14:18)
[2017-09-13] MEDS ORDERED: LACTULOSE 20 GM/30 ML UDCUP PO PRN (14:18)
[2017-09-13] MEDS ORDERED: PHENYLEPHRINE 10 MG/ML SDV ONE (14:22)
[2017-09-13] MEDS ORDERED: NS W/ 20 KCl/L 1,000 ML IV SCH (14:30)
[2017-09-13] MEDS ORDERED: PROPOFOL 200 MG/20 ML VIAL ONE ×2 (15:29)
[2017-09-13] MEDS ORDERED: fentaNYL 100 MCG/2 ML INJ ONE ×2 (15:39→18:11)
[2017-09-13] MEDS ORDERED: epHEDrine SULFATE 10 MG/ML SYR ONE (15:59)
[2017-09-13] MEDS ORDERED: ONDANSETRON 4 MG/2 ML VIAL ONE (16:07)
--- NOTE | 2017-09-13 16:39 | PDMN ---
Medical Necessity Medical necessity: [facility] IP only surgery, cpt 32154 Musculoskeletal surgery, C4- 7 ACDF, comorbid age >65
[2017-09-13] MEDS ORDERED: HYDROmorphONE/DILAUDID 2 MG/ML INJ IVP PRN (17:55)
[2017-09-13] MEDS ORDERED: NALOXONE HCL 0.4 MG/ML INJ IVP PRN (17:55)
--- NOTE | 2017-09-13 18:11 | GOP ---
[f rep st] OPERATIVE REPORT DATE OF OPERATION: 09/13/2017 SURGEON: Anoop Foreman MD STUDENT EDUCATION SPECIALIST: DENISE Galan. ANESTHESIA: General. PREOPERATIVE DIAGNOSIS: 1. C4 through C7 cervical stenosis with myelopathy. 2. Cervicalgia. 3. Radiculopathy. 4. Treatment refractory to nonoperative intervention. POSTOPERATIVE DIAGNOSIS: 1. C4 through C7 cervical stenosis with myelopathy. 2. Cervicalgia. 3. Radiculopathy. 4. Treatment refractory to nonoperative intervention. PROCEDURE PERFORMED: 1. Anterior arthrodesis to C4, C5, C6, and C7. 2. C4-C5 diskectomy with bilateral foraminotomies, osteophytectomies, and interbody fusion using 8 x 14 mm titanium-coated PEEK cage filled with morselized autograft and allograft. 3. C5-C6 diskectomy with bilateral foraminotomies, osteophytectomies, and interbody fusion using a 7 x 14 mm titanium-coated PEEK cage filled with morselized autograft and allograft. 4. C6-C7 diskectomy with bilateral foraminotomies, osteophytectomies, and interbody fusion using a 7 x 14 mm titanium-coated PEEK cage filled with morselized autograft and allograft. 5. Anterior cervical fusion C4, C5, C6, and C7 with a 62.5 mm Medtronic Totowa translational plate. 6. Use of intraoperative fluoroscopy; less than 1 hour physician time. 7. Use of neuromonitoring. 8. Use of operative microscope. FINDINGS: per imaging ESTIMATED BLOOD LOSS: 50 mL. INDICATIONS: The patient is a gentleman followed by my partner, Dr. Mitch Burden , and was scheduled for surgery but had to be postponed secondary to cardiac difficulties. He presented to the hospital with worsening neurological symptoms. Imaging was consistent with severe spinal stenosis, C4 through C7, with cord signal changes. After discussion of the risks, benefits, and alternatives and after failing nonoperative intervention, we decided to proceed forth with surgery as described above. DESCRIPTION OF PROCEDURE: The patient brought to the operating theater and underwent general endotracheal anesthesia without complications. He had Venodyne's, INGRID hose, and appropriate lines placed by Anesthesia. He was maintained supine on the operating table in slight extension. The patient's blood pressure was maintained with MAP above 85 throughout the induction surgery. Using lateral fluoroscopy and a spinal needle, we picked our entry point at the C4 through C7 levels. This was marked as a transverse incision on the right side of the neck. This area was then prepped and draped in the usual sterile surgical fashion. A time-out was completed per protocol, and the patient received antibiotics within 1 hour of incision. The incision was taken down with the scalpel blade and then using monopolar, taken down through subcutaneous tissue to the level of the platysma. The platysma was over-mined in the cranial and caudal directions. A Weitlaner was placed to maintain our exposure. We opened the fibers of the platysma cranially and caudally. Using both blunt and sharp dissection, we then traveled in a plane medial to the carotid sheath and lateral to esophagus and trachea, until we reached the prevertebral fascia. We placed a bayonetted needle in the disk space of C4-C5 and confirmed the level using lateral fluoroscopy. We elevated the longus coli muscle from the anterior vertebral bodies of C4, C5 , C6, and C7. The large anterior osteophytes were taken down with the Leksell rongeur. We brought the microscope into the field to assist with microscopic dissection and to maintain illumination and magnification. Deep retractors were placed to maintain our exposure. We placed a Benld pin into the vertebral bodies of C4 and C5 and placed C4-C5 in mild distraction. We then completed a C4-C5 diskectomy with bilateral foraminotomies and osteophytectomies. We prepared the cartilaginous endplates and measured the interbody space. We then placed an 8 x 14 mm titanium-coated PEEK cage filled with morselized autograft and allograft into the C4-C5 disk space. We removed the Benld pin from C4, and placed it into C6, and then placed C5-C6 into mild distraction. We completed a C5-C6 diskectomy with bilateral foraminotomies and osteophytectomies. We prepared the cartilaginous endplates and measured interbody space. We then placed a 7 x 14 mm titanium-coated PEEK cage filled with morselized autograft and allograft into the C5-6 disk space. We removed the Benld pin from C5 and placed it into C7, and placed C6-C7 into mild distraction. We completed a C6-C7 diskectomy with bilateral foraminotomies and osteophytectomies. We prepared the cartilaginous endplates and measured interbody space. We then placed a 7 x 14 mm titanium-coated PEEK cage filled with morselized autograft and allograft in the C6-7 disk space. We removed the Benld pins and drilled down the anterior osteophytes of C4, C5, C6, and C7. We secured the 62.5 mm Medtronic Totowa translational plate onto the vertebral bodies of C4, C5, C6, and C7. AP and lateral x-rays demonstrated good placement of the hardware. The wound was irrigated copiously with bacitracin irrigation, and a drain was left in the subfascial space. The wound was then closed in multiple layers including Vicryl sutures for the deep layers and Dermabond for the skin. The patient's wounds were dressed sterilely. The patient was still asleep at the time of this dictation. There were no complications and no noted changes on neuromonitoring throughout the procedure. COMPLICATIONS: None. /[id number]/MODL MTDD
[2017-09-13] MEDS: fentaNYL 100 MCG/2 ML INJ IVP PRN ×3 (18:12→19:17)
--- NOTE | 2017-09-13 18:13 | POSTANESTH ---
Post Anesthetic Evaluation Cardiovascular Status: Similar to Pre-Op Cond Respiratory Status: Normal, Stable Level of Consciousness/Mental Status: Can Participate in Eval Pain Control: Adequate, Prn Tx Ordered Nausea/Vomiting Control: Adequate, Prn Tx Ordered Complications Possibly Related to Anesthesia: None Noted
[2017-09-13] MEDS: METHOCARBAMOL 750 MG TAB PO SCH ×2 (21:21→23:44)
[2017-09-13] MEDS ORDERED: ceFAZolin 2 GM/DEXTROSE 100 ML IV SCH (22:00)
[2017-09-13] MEDS: ceFAZolin 2 GM/SWFI 2 GM/20 ML SYR IVP SCH (22:51)
[2017-09-13] MEDS: ACETAMINOPHEN 500 MG TAB PO SCH (23:47)
[2017-09-13] MEDS: oxyCODONE IR 5 MG TAB PO PRN (23:52)
[2017-09-14] MEDS: FAMOTIDINE 20 MG TAB PO SCH ×2 (00:18→08:22)
[2017-09-14] MEDS: SENNOSIDES/DOCUSATE SODIUM TAB PO SCH ×2 (00:18→08:21)
[2017-09-14] MEDS: guaiFENesin 600 MG TAB.ER PO SCH ×2 (00:18→08:22)
[2017-09-14] MEDS: oxyCODONE IR 5 MG TAB PO PRN (01:39)
[2017-09-14] MEDS: ACETAMINOPHEN 500 MG TAB PO SCH ×2 (05:06→14:39)
[2017-09-14] MEDS: ceFAZolin 2 GM/SWFI 2 GM/20 ML SYR IVP SCH (05:08)
--- NOTE | 2017-09-14 06:25 | NEUSURGPN ---
Assessment/Plan: A/P 72M s/p ACDF C4-7 POD1 -Optimize pain management -PT/OT -DVT prophx:TEDS, SCDS, LOVENOX POD3, okay to restart ASA POD5 -Post xrays pending -Advance diet as tolerated -FLAVIA x1, will d/c today -Please notify NS with any change in neuro/motor exam Subjective: Denies any new pain/weakness Objective: O: NAD A&Ox3 MAEx4, 5/5 and equal. Incision c/d/i - Physician Patient Seen by DrShanna: Kellen Neurosurgery Physical Exam - Vitals, I&O, Labs I and O 09/13/17 09/14/17 09/15/17 05:59 05:59 05:59 Intake Total 1010 Output Total 255 Balance 755 Weight 81.647 kg Intake: Oral (ml) 10 IV Intake (ml) 1000 Output: Urine (ml) 250 Urinal 250 FLAVIA Drain Output (ml) 5 #1 Anterior Neck Efraín 5 Ramsay Vital Signs Temp Pulse Resp BP Pulse Ox 36.6 C 64 18 101/60 97 09/14/17 04:50 09/14/17 04:50 09/14/17 04:50 09/14/17 04:50 09/14/17 04:50 ICD10 Worksheet Patient Problems: Problems Problem Status Onset Acute blood loss anemia Acute CAD in zuni artery Acute Chest pain Acute S/P CABG x 2 Acute ~06/12/17 S/P ablation of atrial fibrillation Acute TIA (transient ischemic attack) Acute chronic disease mgmt/transitional care Acute
[2017-09-14] MEDS: METHOCARBAMOL 750 MG TAB PO SCH ×2 (08:21→14:56)
[2017-09-14] MEDS ORDERED: METOPROLOL TARTRATE 25 MG TAB PO SCH ×2 (12:00)
[2017-09-14] MEDS ORDERED: PNEUMOC 13-VAL CONJ-DIP CRM/PF 0.5 ML SYR IM ONE (12:51)
--- NOTE | 2017-09-14 15:49 | ASMTCMCOM ---
CM Note CM Note Notes: Pt s/p ACDF C4-7. 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 Pt medically stable for d/c home with . No CM d/c needs identified. Date Signed: 09/14/2017 03:49 PM Electronically Signed By:CHOCO Arenas
[2017-09-14 16:24] VITALS: BP 110/59
[2017-09-16] MEDS ORDERED: ENOXAPARIN 40 MG/0.4 ML SYR SC SCH (09:00)
== END 2017-09-14 17:37 | disposition home or self-care (01) | DRG 472 ==
LOC: F3N 11:55
PROVIDERS: ADMIT Neurological Surgery; ATTEND Neurological Surgery
PROC: 4A1004G Monitoring of Central Nervous Electrical Activity, Intraoperative, Open Approach (ICD-10-PCS; principal; 2017-09-13 14:15)
PROC: 0RB30ZZ Excision of Cervical Vertebral Disc, Open Approach (ICD-10-PCS; principal; 2017-09-13 14:15)
PROC: 0RG20A0 Fusion of 2 or more Cervical Vertebral Joints with Interbody Fusion Device, Anterior Approach, Anterior Column, Open Approach (ICD-10-PCS; principal; 2017-09-13 14:15)
DX: M48.02 Spinal stenosis, cervical region (principal); M50.00 Cervical disc disorder with myelopathy, unspecified cervical region; M50.10 Cervical disc disorder with radiculopathy, unspecified cervical region; I25.10 Atherosclerotic heart disease of native coronary artery without angina pectoris; Z95.1 Presence of aortocoronary bypass graft; Z23 Encounter for immunization
CPT/HCPCS: 92610-GN; 97161-GP; 97165-GO; 97530-GP; C1713; G0009; G8978-GP-CI; G8979-GP-CH; G8987-GO-CJ; G8988-GO-CI; G8996-GN-CI; G8997-GN-CI; J0690; J1100; J2270; J2370; J2405; J2704; J3010

== ENCOUNTER 2017-09-15 22:42 | Emergency (ER) | payer OTHER ==
--- NOTE | 2017-09-15 23:00 | EDPHY ---
H & P Stated Complaint: C4-7 fusion surg , can't move arm past elbow Time Seen by Provider: 09/15/17 22:59 HPI/ROS: HPI CHIEF COMPLAINT: Right arm discomfort, unable to lift HISTORY OF PRESENT ILLNESS: Patient very pleasant 72-year-old male, presents emergency room with trouble moving his right arm. Patient reports that he just had a cervical fusion is been recovering at home he was discharged on Sunday. Presents emergency room Sunday night with trouble moving his right arm. He states he noticed this over the weekend. He called his neuro Surgical team and was recommended come the emergency room to have imaging MRI of his cervical spine. Past Medical History: Anterior cervical fusion, recent surgery due to cervical radiculopathy Past Surgical History: Recent anterior cervical fusion, and diskectomy Social History: Denies daily use of drugs alcohol tobacco. Family History: Noncontributory ROS REVIEW OF SYSTEMS: A comprehensive 10 point review of systems is otherwise negative aside from elements mentioned in the history of present illness. Exam Constitutional triage nursing summary reviewed, vital signs reviewed, awake/ alert. Eyes normal conjunctivae and sclera, EOMI, PERRLA. HENT normal inspection, atraumatic, moist mucus membranes, no epistaxis, neck supple/ no meningismus, no raccoon eyes. Respiratory clear to auscultation bilaterally, normal breath sounds, no respiratory distress, no wheezing. Cardiovascular rate normal, regular rhythm, no murmur, no edema, distal pulses normal. Gastrointestinal soft, non-tender, no rebound, no guarding, normal bowel sounds, no distension, no pulsatile mass. Genitourinary no CVA tenderness. Musculoskeletal no midline vertebral tenderness, full range of motion, no calf swelling, no tenderness of extremities, no meningismus, good pulses, neurovascularly intact. Skin pink, warm, & dry, no rash, skin atraumatic. Neurologic neurological exam he is in a rigid cervical collar [place], his anterior cervical fusion scar is clean, dry and intact, no signs of infection, on neurological exam is normal patient access strength bilaterally, his right arm is weak when he goes to abduct his right arm, appears to be the deltoid that is weak, he is neurovascular intact otherwise, good sensation, no significant radicular pain. He possibly has see 5 nerve palsy. Good distal pulse. awake, alert and oriented x 3, AAOx3, moves all 4 extremities equally, motor intact, sensory intact, CN II-XII intact, normal cerebellar, normal vision, normal speech. Psychiatric normal mood/affect. Heme/Lymph/Immune no lymphadenopathy. Differential Diagnosis: Includes but is not limited to in a particular order C5 nerve palsy, neuropathy, neuropraxia, spinal hematoma Medical Decision Making: Plan for patient MRI cervical spine, will also consult Neurosurgery. Re-evaluation: 2311: Spoke with Dr. Munroe, with Neurosurgery. He does recommend MRI with cervical spine rule out postsurgical complication however he clinically he feels this patient most likely has C5 nerve palsy which can be seen after decompression cervical fusion with diskectomy. MRI of the cervical spine called to me by Dr. Ellis. Shows recent postsurgical changes of the fusion C4, C5, C6, C7. No significant postsurgical complication. No large hematoma. There is still disc space narrowing at C4-C5 region. 0137: Spoke with Dr. Munroe, discussed the case in detail as well as 1 over the MRI with him. Feels comfortable allowing the patient to go home. They will follow up with him next 24-48 hours. Updated the patient. Went over his MRI results with him. He has no significant postsurgical hematoma. Most likely C5 nerve palsy. Patient understands this can take a few weeks to get better. Understands follow-up with Neurosurgery. Source: Patient - Personal History Current Tetanus Diphtheria and Acellular Pertussis (TDAP): Yes - Medical/Surgical History Hx Asthma: No Hx Chronic Respiratory Disease: No Hx Diabetes: No Hx Cardiac Disease: Yes Hx Renal Disease: No Hx Cirrhosis: No Hx Alcoholism: No Hx HIV/AIDS: No Hx Splenectomy or Spleen Trauma: No Other PMH: A fib/ Ablation, pvcs,. tonsils , bitlat shldr repair ,prostate hypertrophy, esopageal dilatation. 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 c4-7 fusion september 2017 - Social History Smoking Status: Former smoker Constitutional: Initial Vital Signs Temperature (C) 36.7 C 09/15/17 22:43 Heart Rate 71 09/15/17 22:43 Respiratory Rate 18 09/15/17 22:43 Blood Pressure 140/66 H 09/15/17 22:43 O2 Sat (%) 97 09/15/17 22:43 O2 Delivery Mode Room Air Allergies/Adverse Reactions: aminobenzoic acid Allergy (Intermediate, Verified 09/15/17 22:42) Other-Enter Comments Macrolide Antibiotics Allergy (Intermediate, Verified 09/15/17 22:42) Other-Enter Comments melatonin Allergy (Intermediate, Verified 09/15/17 22:42) Other-Enter Comments potassium clavulanate [From Augmentin] Allergy (Intermediate, Verified 09/15/17 22:42) Other-Enter Comments Quinolones Allergy (Intermediate, Verified 09/15/17 22:42) Other-Enter Comments Tetracyclines Allergy (Intermediate, Verified 09/15/17 22:42) Other-Enter Comments dexamethasone Allergy (Verified 09/15/17 22:42) potassium clavulanate Allergy (Unknown, Uncoded 06/18/17 14:45) Other-Enter Comments asthma inhalers Allergy (Uncoded 09/13/17 12:31) Home Medications: Medication Instructions Recorded Metoprolol Tartrate [Lopressor 25 12.5 mg PO 00,12,18 07/09/17 mg (*)] Acetaminophen [Tylenol 325mg (*)] 650 mg PO Q4HRS PRN tab 09/11/17 guaiFENesin [Mucinex 600 MG (*)] 600 mg PO BID 09/13/17 Acetaminophen [Tylenol ES 500 mg 1,000 mg PO Q8HRS tab 09/14/17 (*)] Methocarbamol [Robaxin 750 mg (*)] 750 mg PO TID #60 tab 09/14/17 Sennosides/Docusate Sodium 1 - 2 tab PO BID tab 09/14/17 [Senokot-S] oxyCODONE IR [Oxycodone Ir (*)] 5 - 10 mg PO Q4HRS PRN #60 tab 09/14/17 Medical Decision Making - Diagnostics Imaging Results: Imaging Impressions Cervical Spine MRI 09/15/17 23:06 Impression: 1. Postoperative changes related to anterior cervical fusion from C4 through C7 2. Residual disk material versus postoperative thickening at the posterior disk space at C4-C5 that abuts the anterior margin of the cervical spinal cord with severe spinal stenosis and bilateral neuroforaminal stenoses as detailed above. 3. Disk replacement also at C5-C6 and C6-C7 with presumed postoperative thickening along the posterior disk margin at each of these levels as well causing compression upon the spinal sac is less than on the preoperative MRI exam. Neuroforaminal stenoses remain as detailed above. Please see findings at specific disk levels. Findings discussed with Francis Jonas MD at 0:30 hour, 09/16/2017. - Data Points Laboratory Results: Laboratory Results 09/15/17 23:20 09/15/17 23:20 09/15/17 09/15/17 23:20 23:20 WBC 7.52 10^3/uL 10^3/uL (3.80-9.50) RBC 4.61 10^6/uL 10^6/uL (4.40-6.38) Hgb 14.3 g/dL g/dL (13.7-17.5) Hct 42.6 % % (40.0-51.0) MCV 92.4 fL fL (81.5-99.8) MCH 31.0 pg pg (27.9-34.1) MCHC 33.6 g/dL g/dL (32.4-36.7) RDW 12.6 % % (11.5-15.2) Plt Count 165 10^3/uL 10^3/uL (150-400) MPV 10.4 fL fL (8.7-11.7) Neut % (Auto) 61.7 % % (39.3-74.2) Lymph % (Auto) 19.9 % % (15.0-45.0) [place] % (Auto) 14.0 % H % (4.5-13.0) Eos % (Auto) 3.3 % % (0.6-7.6) Baso % (Auto) 0.7 % % (0.3-1.7) Nucleat RBC Rel Count 0.0 % % (0.0-0.2) Absolute Neuts (auto) 4.64 10^3/uL 10^3/uL (1.70-6.50) Absolute Lymphs (auto) 1.50 10^3/uL 10^3/uL (1.00-3.00) Absolute Monos (auto) 1.05 10^3/uL H 10^3/uL (0.30-0.80) Absolute Eos (auto) 0.25 10^3/uL 10^3/uL (0.03-0.40) Absolute Basos (auto) 0.05 10^3/uL 10^3/uL (0.02-0.10) Absolute Nucleated RBC 0.00 10^3/uL 10^3/uL (0-0.01) Immature Gran % 0.4 % % (0.0-1.1) Immature Gran # 0.03 10^3/uL 10^3/uL (0.00-0.10) Sodium 142 mEq/L mEq/L (135-145) Potassium 4.3 mEq/L mEq/L (3.5-5.2) Chloride 102 mEq/L mEq/L (97-110) Carbon Dioxide 28 mEq/l mEq/l (22-31) Anion Gap 12 mEq/L mEq/L (8-16) BUN 15 mg/dL mg/dL (7-23) Creatinine 0.9 mg/dL mg/dL (0.7-1.3) Estimated GFR > 60 Glucose 87 mg/dL mg/dL (70-100) Calcium 8.5 mg/dL mg/dL (8.5-10.4) Departure - Departure Disposition: Home, Routine, Self-Care Clinical Impression: Neuropathy, Arm weakness Condition: Good Instructions: Paresthesia (ED), Peripheral Neuropathy (ED) Additional Instructions: 1. Please follow up with Neurosurgery. 2. Return emergency room if there is worsening symptoms questions or concerns. Referrals: NONE *PRIMARY CARE P,. [Primary Care Provider] - As per Instructions Floyd Munroe MD [Medical Doctor] - As per Instructions
[2017-09-15 23:38] LABS: PLATELET COUNT 165 10^3/uL (150-400)
[2017-09-16 01:38] VITALS: BP 134/90
== END 2017-09-16 01:51 | disposition home or self-care (01) ==
DX: G62.9 Polyneuropathy, unspecified (principal); R53.1 Weakness; Z87.891 Personal history of nicotine dependence

== ENCOUNTER → 2017-10-24 | Outpatient (CLI) | payer OTHER | LOC: FIMAGING 15:17 | PROVIDERS: ATTEND Physician Assistant Surgical | DX: Z09 Encounter for follow-up examination after completed treatment for conditions other than malignant neoplasm (principal); Z98.1 Arthrodesis status ==

== ENCOUNTER → 2017-11-16 | Outpatient (CLI) | payer OTHER | LOC: FIMAGING 13:19 | PROVIDERS: ATTEND Physician Assistant Surgical | DX: Z09 Encounter for follow-up examination after completed treatment for conditions other than malignant neoplasm (principal); Z98.1 Arthrodesis status; M50.31 Other cervical disc degeneration, high cervical region; M41.82 Other forms of scoliosis, cervical region ==

== ENCOUNTER → 2017-11-28 | Outpatient (CLI) | payer OTHER | LOC: FIMAGING 18:32 | PROVIDERS: ATTEND Physician Assistant Surgical | DX: M48.062 Spinal stenosis, lumbar region with neurogenic claudication (principal); M51.36 Other intervertebral disc degeneration, lumbar region ==

== ENCOUNTER → 2017-12-21 | Outpatient (CLI) | payer OTHER | LOC: FIMAGING 15:07 | PROVIDERS: ATTEND Physician Assistant Surgical | DX: Z47.89 Encounter for other orthopedic aftercare (principal); M47.12 Other spondylosis with myelopathy, cervical region; R53.1 Weakness; Z98.1 Arthrodesis status ==

== ENCOUNTER 2018-02-23 17:37 | Emergency (ER) | payer OTHER ==
--- NOTE | 2018-02-23 18:06 | EDPHY ---
H & P Stated Complaint: Increased numbness to lower spine and bilat legs. Time Seen by Provider: 02/23/18 17:58 HPI/ROS: CHIEF COMPLAINT: Saddle anesthesia HISTORY OF PRESENT ILLNESS: The patient is a 72-year-old man with a history of degenerative disc disease, radiculopathies and previous cervical spine fusion this september. He is scheduled to have a lumbar spinal fusion on March [address] Lynne. He however has had increasing saddle anesthesia over the last several weeks and today felt like his "ass hole sphincter" was numb on the right side. He denies urinary incontinence but states that he has had very small episodes of stool incontinence. He continues to be able to ambulate but with pain which is baseline. No leg weakness. He does have chronic radiculopathy on right worse than left. No fevers. No recent trauma. No mid no compromise. Severity: Severe Modifying factors: Worse with movement and ambulation REVIEW OF SYSTEMS: Constitutional: denies: chills, fever, recent illness, recent injury EENTM: denies: blurred vision, double vision, nose congestion Respiratory: denies: cough, shortness of breath Cardiac: denies: chest pain, irregular heart rate, lightheadedness, palpitations Gastrointestinal/Abdominal: denies: abdominal pain, diarrhea, nausea, vomiting, blood streaked stools Genitourinary: denies: dysuria, frequency, hematuria, pain Musculoskeletal: See HPI Skin: denies: lesions, rash, jaundice, bruising Neurological: denies: headache, numbness, paresthesia, tingling, dizziness, weakness Hematologic/Lymphatic: denies: blood clots, easy bleeding, easy bruising Immunologic/allergic: denies: HIV/AIDS, transplant 10 systems reviewed and negative except as noted EXAM: GENERAL: Well-appearing, well-nourished and in no acute distress. HEAD: Atraumatic, normocephalic. EYES: Pupils equal round and reactive to light, extraocular movements intact, sclera anicteric, conjunctiva are normal. ENT: TMs normal, nares patent, oropharynx clear without exudates. Moist mucous membranes. NECK: Normal range of motion, supple without lymphadenopathy or JVD. LUNGS: Breath sounds clear to auscultation bilaterally and equal. No wheezes rales or rhonchi. HEART: Regular rate and rhythm without murmurs, rubs or gallops. ABDOMEN: Soft, nontender, normoactive bowel sounds. No guarding, no rebound. No masses appreciated. . The patient has normal subjective sensation at the perineum area. He has good rectal tone. BACK: Low back pain, paresthesias to the perineum, EXTREMITIES: Normal range of motion, no pitting or edema. No clubbing or cyanosis. NEUROLOGICAL: Cranial nerves II through XII grossly intact. Normal speech, baseline gait. 5/5 strength, normal movement in all extremities, normal sensation, normal reflexes PSYCH: Normal mood, normal affect. SKIN: Warm, dry, normal turgor, no visible rashes or lesions. Source: Patient, Family, Old records Exam Limitations: No limitations - Personal History Current Tetanus Diphtheria and Acellular Pertussis (TDAP): Yes - Medical/Surgical History Hx Asthma: No Hx Chronic Respiratory Disease: No Hx Diabetes: No Hx Cardiac Disease: Yes Hx Renal Disease: No Hx Cirrhosis: No Hx Alcoholism: No Hx HIV/AIDS: No Hx Splenectomy or Spleen Trauma: No Other PMH: A fib/ Ablation, pvcs,. tonsils , bitlat shldr repair ,prostate hypertrophy, esopageal dilatation. 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 c4-7 fusion september 2017 - Family History Significant Family History: No pertinent family hx - Social History Smoking Status: Former smoker Alcohol Use: Sober Drug Use: None Constitutional: Initial Vital Signs Temperature (C) 36.6 C 02/23/18 17:38 Heart Rate 62 02/23/18 17:38 Respiratory Rate 18 02/23/18 17:38 Blood Pressure 110/59 L 02/23/18 17:38 O2 Sat (%) 95 02/23/18 17:38 O2 Delivery Mode Room Air Allergies/Adverse Reactions: aminobenzoic acid Allergy (Intermediate, Verified 09/15/17 22:42) Other-Enter Comments Macrolide Antibiotics Allergy (Intermediate, Verified 09/15/17 22:42) Other-Enter Comments melatonin Allergy (Intermediate, Verified 02/07/18 13:38) Other-Enter Comments potassium clavulanate [From Augmentin] Allergy (Intermediate, Verified 09/15/17 22:42) Other-Enter Comments Quinolones Allergy (Intermediate, Verified 09/15/17 22:42) Other-Enter Comments Tetracyclines Allergy (Intermediate, Verified 09/15/17 22:42) Other-Enter Comments dexamethasone Allergy (Mild, Verified 02/07/18 13:42) diclofenac Allergy (Mild, Verified 02/07/18 13:42) fentanyl Allergy (Mild, Verified 02/07/18 13:42) fluticasone [From Flovent Diskus] Allergy (Mild, Verified 02/07/18 13:42) asthma inhalers Allergy (Mild, Uncoded 02/07/18 13:42) potassium clavulanate Allergy (Unknown, Uncoded 06/18/17 14:45) Other-Enter Comments Home Medications: Medication Instructions Recorded Metoprolol Tartrate [Lopressor 25 12.5 mg PO 00,08,16 07/09/17 mg (*)] guaiFENesin [Mucinex 600 MG (*)] 600 mg PO BID PRN 09/13/17 Methocarbamol [Robaxin 750 mg (*)] 750 mg PO TID #60 tab 09/14/17 Acetaminophen [Tylenol ES 500 mg 500 mg PO Q8HRS 02/07/18 (*)] Carbidopa/Levodopa 25/100Mg 0.5 tab PO 0000 02/07/18 [Sinemet 25/100 MG (*)] Magnesium Sulfate in 0.9% NaCl 1 gm IV Q4D 02/07/18 [Magnesium 1 G/100 ml-0.9% NaCl] Sennosides/Docusate Sodium 1 tab PO DAILY 02/07/18 [Senokot-S] oxyCODONE IR [Oxycodone Ir (*)] 5 mg PO 0000,03 02/07/18 oxyCODONE IR [Oxycodone Ir (*)] 5 mg PO Q6 PRN 02/07/18 Medical Decision Making - Diagnostics Imaging Results: Imaging Impressions Lumbar Spine MRI 02/23/18 18:03 Impression: 1. Slight increase in severe spinal canal narrowing at L4-L5, with effacement of CSF adjacent to the cauda equina, with stable mild to moderate bilateral neural foraminal stenosis. 2. Stable multilevel degenerative change, as above. Please see above findings at specific disk levels. Findings discussed with Julio Cesar Becerril M.D., on February 23, 2018 at 1848. Imaging: Discussed imaging studies w/ after school counselor Radiologist ED Course/Re-evaluation: 7:30 p.m. we received the MRI results and discussed them with Dr. Adorno and with Brian Palomares. The patient's MRI is not significantly worse than previous. We gave him the option of being admitted and having surgery this week for verses having it done as scheduled on March 07. Patient preferred to go home and have it done March 07. I spoke with Neurosurgery who agrees with this. I also spoke with the patient about indications for returning. 8:00 p.m. patient was evaluated by Neurosurgery Dr. Adorno. They agree with the plan. Differential Diagnosis: Partial list of the Differential diagnosis considered include but were not limited to; cauda equina syndrome, radiculopathy, arthritis, and although unlikely based on the history and physical exam, I also considered infection, hematoma, fracture. I discussed these differential diagnoses and the plan with the patient as well as the usual and expected course. The patient understands that the diagnosis is provisional and that in medicine we are not always correct and that further workup is often warranted. Usual and customary warnings were given. All of the patient's questions were answered. The patient was instructed to return to the emergency department should the symptoms at all worsen or return, otherwise to followup with the physician as we discussed. Departure - Departure Disposition: Home, Routine, Self-Care Clinical Impression: Low back pain Qualifiers: Chronicity: chronic Back pain laterality: unspecified Sciatica presence: with sciatica Sciatica laterality: bilateral sciatica Qualified Code(s): M54.41 - Lumbago with sciatica, right side; M54.42 - Lumbago with sciatica, left side; M54.42 - Lumbago with sciatica, left side; G89.29 - Other chronic pain; G89.29 - Other chronic pain Condition: Fair Instructions: Back Pain (ED) Referrals: NONE *PRIMARY CARE P,. [Primary Care Provider] - As per Instructions Anoop Foreman MD [Medical Doctor] - 2-3 days, if not improved
[2018-02-23 19:42] VITALS: BP 142/70
--- NOTE | 2018-02-24 18:56 | GCON ---
DATE OF CONSULTATION: 02/23/2018 CONSULTING SERVICE: Dr. Julio Cesar Becerril. EMERGENCY MEDICINE SALES SERVICE REPRESENTATIVE: Dr. Munroe of Neurosurgery. REASON FOR CONSULT: Concerns for worsening lumbar stenosis symptoms. HISTORY OF PRESENT ILLNESS: The patient is a 72-year-old male with a history of cervical and lumbar spondylosis and stenosis, who has been cared for by both partners of [facility], Dr. Burden and Dr. Foreman, and had cervical fusion with Dr. Foreman in September of this year. He is, for some reason, still wearing his cervical collar. He is scheduled for lumbar decompressive surgery and fusion with Dr. Foreman in approximately 10 days. The date of his surgery was already moved up once for his concerns about wors ening symptoms. He has yet to ever have red flags. He presents this evening, on a Sunday night, b ecause he feels like his anus is slightly more numb than it has been. He had a repeat MRI compared t november that shows essentially similar L4-5 stenosis. After discussion with Dr. Foreman, we decided to offer him surgery sooner if he so chose, but after seeing the patient personally in the ED, he has d ecided to wait for his scheduled surgery day after all. PAST MEDICAL AND SURGICAL HISTORY: Per HPI. Atrial fibrillation and cardiac ablation, periventricul ar contractions, tonsillectomy, bilateral shoulder surgery, prostatic hypertrophy, esophageal dilatat ion, CABG x2 in June of this year, and a C4 to 7 fusion in September of this year. ALLERGIES: To many agents including macrolide, melatonin, Augmentin, quinolones, tetracyclines, ster oids, diclofenac, fentanyl, fluticasone, asthma inhalers. CODE STATUS: Full. SOCIAL HISTORY: Former smoker. Denies alcohol or drug use. Here with his who is supportive. FAMILY HISTORY: Reviewed but non-pertinent in this case. PHYSICAL EXAMINATION: VITALS: Afebrile at 36.6 degrees centigrade, heart rate 62, respiratory rate 18, saturating 95% with a blood pressure of 110/59. NEUROLOGIC: Awake, alert, oriented x3. Appears stated age, in no acute distress, wearing a cervical collar after surgery 5 months ago. Normal cran ial nerves. No focalities to the exam on motor strength testing. Normal sensation. Normal rectal t one. Normal reflexes. Gait is steady. LABORATORIES: No labs were drawn. IMAGING REVIEW: I reviewed the patient's MRI of his lumbar spine and compared to his last MRI of the lumbar spine and agree with [id number] spinal canal stenosis at L4-5 with mild spondylolisth esis that, to my read, appears approximately stable despite Radiology thinking it could be slightly w orse. IMPRESSION AND PLAN: A 72-year-old male with multiple medical problems on anticoagulation who was sc heduled for surgery with Dr. Foreman in approximately 10 days. He has an MRI of his lumbar spine toda y showing significant L4-5 stenosis that is approximately stable to my read from November, but slightly w orse to Radiology's read. His symptoms are not emergent, and there are no red flags in my mind. Aft er a period of discussion with his and him that lasted approximately 45 minutes, he prefers to w ait for scheduled surgery with Dr. Foreman. I also discussed this with Dr. Foreman, and he agrees ____ could carry out the operation. I did offer to do the operation sooner, but the patient reques vee Dr. Foreman because he is board certified, although he was not unhappy with my care or recommendat ions and was appreciative. Thank you for this consult. He will be discharged home this evening and will follow up with Dr. Macario grajeda as previously scheduled. /[id number]/MODL
== END 2018-02-23 19:43 | disposition home or self-care (01) ==
DX: M48.062 Spinal stenosis, lumbar region with neurogenic claudication (principal); Z87.891 Personal history of nicotine dependence

== ENCOUNTER → 2018-02-25 | Outpatient (CLI) | payer OTHER | LOC: FIMAGING 14:51 | PROVIDERS: ATTEND Physician Assistant Surgical | DX: Z09 Encounter for follow-up examination after completed treatment for conditions other than malignant neoplasm (principal); Z98.1 Arthrodesis status ==

== ENCOUNTER 2018-03-07 10:33 | Inpatient (IN) | payer OTHER ==
[2018-02-28 14:52] LABS: PLATELET COUNT 202 10^3/uL (150-400)
[2018-03-07] MEDS ORDERED: ceFAZolin 2 GM/DEXTROSE 100 ML IV ONE (10:40)
[2018-03-07] MEDS ORDERED: morphINE PF 0.2 MG in SYRINGE INTRATHECAL 1 SYR IT ONE (10:40)
[2018-03-07] MEDS ORDERED: GABAPENTIN 300 MG CAP PO ONE (10:40)
[2018-03-07] MEDS ORDERED: ACETAMINOPHEN 500 MG TAB PO ONE (10:40)
[2018-03-07] MEDS ORDERED: CITRATE DEXTROSE SOLN 500 ML BAG ONE (10:52)
[2018-03-07] MEDS ORDERED: THROMBIN (BOVINE) 5,000 UNIT VIAL TP ONE (10:52)
[2018-03-07] MEDS ORDERED: BUPIVACAINE 0.25% 30 ML SDV ONE (10:52)
[2018-03-07] MEDS ORDERED: CHLORHEXIDINE GLUC HIBICLENS 118 ML BTL TP ONE (10:52)
[2018-03-07] MEDS ORDERED: BACITRACIN 50,000 UNITS/10 ML SYR IRR ONE (10:53)
[2018-03-07] MEDS ORDERED: EPINEPHrine 1 MG/ML INJ ONE (10:53)
[2018-03-07] MEDS ORDERED: PROPOFOL/EMULSION 500 MG/50 ML BOTTLE IV ONE ×4 (10:57→16:10)
--- NOTE | 2018-03-07 11:17 | PDHPUP ---
History & Physical Update H&P update statement: This history and physical update is based on an assessment of the patient which was completed after admission or registration (within 24 hours), but prior to the surgery/procedure. H&P update: H&P reviewed & patient examined, no change in patient's condition since H&P completed (Consents signed and site marked. All questions answered.)
[2018-03-07] MEDS ORDERED: HYDROmorphONE/DILAUDID 2 MG/ML INJ ONE (11:50)
[2018-03-07] MEDS ORDERED: MAGNESIUM SULFATE 1 GM/2 ML VIAL ONE (12:00)
[2018-03-07] MEDS ORDERED: ALBUMIN 5% 250 ML BOTTLE IV ONE (12:00)
[2018-03-07] MEDS ORDERED: CALCIUM CHLORIDE 1 GM/10 ML INJ ONE (12:36)
[2018-03-07] MEDS ORDERED: ROCURONIUM 50 MG/5 ML VIAL ONE ×2 (12:36→12:51)
--- NOTE | 2018-03-07 12:59 | PDANEPAE ---
ANE Past Medical History - Cardiovascular History Hx Hypertension: No Hx Arrhythmias: Yes Hx Chest Pain: No Hx Coronary Artery / Peripheral Vascular Disease: No Hx CHF / Valvular Disease: No Hx Palpitations: No Cardiovascular History Comment: A- FIB/PVC'S. ABLATION X3 LAST 10/2016 - Pulmonary History Hx COPD: No Hx Asthma/Reactive Airway Disease: No Hx Recent Upper Respiratory Infection: No Hx Oxygen in Use at Home: No Hx Sleep Apnea: No Sleep Apnea Screening Result - Last Documented: Negative Pulmonary History Comment: LUNG NODULES W/CHRONIC INF. LAST BRONCH 01/2015 - Neurologic History Hx Cerebrovascular Accident: No Hx Seizures: No Hx Dementia: No - Endocrine History Hx Diabetes: No - Renal History Hx Renal Disorders: Yes Renal History Comment: BPH SOME IMPROVEMENT WITH GREEN LIGHT LASER - Liver History Hx Hepatic Disorders: No - Neurological & Psychiatric Hx Hx Neurological and Psychiatric Disorders: No Neurological / Psychiatric History Comment: ? recent TIA - Cancer History Hx Cancer: No - Congenital Disorder History Hx Congenital Disorders: No - GI History Hx Gastrointestinal Disorders: No - Other Health History Other Health History: RESIDUAL CERVICAL TENDERNESS/SENSITIVITY POST CERVICAL FUSION 09/21. DDD/STENOSIS. SEVERE RESTLESS LEG SX. HX OF DVT - Chronic Pain History Chronic Pain: Yes (LUMBAR SPINE) - Surgical History Prior Surgeries: ACDF 09/2017. CARDIAC ABLATION X3 MOST RECENT 10/2016 NAKUL LAD ARTERY BURNED OUT. CABG X2 06/2017. BRONCHOSCOPY 01/2015. DONNA SHOULDER RTC. GREEN LIGHT LASER WITH POST RT DVT ANE Review of Systems Review of Systems: - Exercise capacity METS (RN): 3 METS ANE Patient History - Allergies Allergies/Adverse Reactions: aminobenzoic acid Allergy (Intermediate, Verified 09/15/17 22:42) Other-Enter Comments Macrolide Antibiotics Allergy (Intermediate, Verified 09/15/17 22:42) Other-Enter Comments melatonin Allergy (Intermediate, Verified 02/07/18 13:38) Other-Enter Comments potassium clavulanate [From Augmentin] Allergy (Intermediate, Verified 09/15/17 22:42) Other-Enter Comments Quinolones Allergy (Intermediate, Verified 09/15/17 22:42) Other-Enter Comments Tetracyclines Allergy (Intermediate, Verified 09/15/17 22:42) Other-Enter Comments dexamethasone Allergy (Mild, Verified 02/07/18 13:42) diclofenac Allergy (Mild, Verified 02/07/18 13:42) fentanyl Allergy (Mild, Verified 02/07/18 13:42) fluticasone [From Flovent Diskus] Allergy (Mild, Verified 02/07/18 13:42) amitriptyline Allergy (Verified 03/07/18 11:08) cephalexin [From Keflex] Allergy (Verified 03/07/18 11:07) diphenhydramine Allergy (Verified 03/07/18 11:07) gabapentin Allergy (Verified 03/07/18 11:08) sertraline [From Zoloft] Allergy (Verified 03/07/18 11:07) asthma inhalers Allergy (Mild, Uncoded 02/07/18 13:42) potassium clavulanate Allergy (Unknown, Uncoded 06/18/17 14:45) Other-Enter Comments - Home Medications Home Medications: Metoprolol Tartrate [Lopressor 25 mg (*)] 12.5 mg PO 00,08,16 07/09/17 [Last Taken 03/07/18 08:00] guaiFENesin [Mucinex 600 MG (*)] 600 mg PO BID PRN 09/13/17 [Last Taken 03/06/18 ] Acetaminophen [Tylenol ES 500 mg (*)] 500 mg PO Q8HRS 02/07/18 [Last Taken 03/07 08:00] Carbidopa/Levodopa 25/100Mg [Sinemet 25/100 MG (*)] 2 tab PO 0000 02/07/18 [ Last Taken 03/07/18 08:00] Magnesium Sulfate in 0.9% NaCl [Magnesium 1 G/100 ml-0.9% NaCl] 1 gm IV Q4D 08/22 [Last Taken 03/05/18] Sennosides/Docusate Sodium [Senokot-S] 1 tab PO DAILY 02/07/18 [Last Taken 03/06] oxyCODONE IR [Oxycodone Ir (*)] 5 mg PO 0000,03 02/07/18 [Last Taken Unknown] oxyCODONE IR [Oxycodone Ir (*)] 5 mg PO Q6 PRN 02/07/18 [Last Taken 03/07/18 03: 00] - NPO status NPO Since - Liquids (Date): 03/06/18 NPO Since - Liquids (Time): 23:00 NPO Since - Solids (Date): 03/06/18 NPO Since - Solids (Time): 22:00 - Smoking Hx Smoking Status: Former smoker - Family Anes Hx Family Hx Anesthesia Complications: NEG ANE Labs/Vital Signs - Labs Result Diagrams: 02/28/18 14:20 - Vital Signs Blood Pressure: 128/76 Heart Rate: 58 Respiratory Rate: 14 O2 Sat (%): 97 Height: 198.12 cm Weight: 78.471 kg ANE Physical Exam - Airway Neck exam: FROM Mallampati Score: Class 1 Mouth exam: normal dental/mouth exam - Pulmonary Pulmonary: no respiratory distress, no rales or rhonchi, clear to auscultation - Cardiovascular Cardiovascular: regular rate and rhythym, no murmur, rub, or gallop, systolic murmur - ASA Status ASA Status: III ANE Anesthesia Plan Anesthesia Plan: general endotracheal anesthesia Lines/Monitors: arterial line Specialized Airway: video laryngoscope Total IV Anesthesia: Yes
[2018-03-07] MEDS ORDERED: ALBUTEROL 3 ML DEYVIAL IH PRN (13:36)
[2018-03-07] MEDS ORDERED: NALOXONE HCL 0.4 MG/ML INJ IVP PRN ×2 (13:36→19:13)
[2018-03-07] MEDS ORDERED: DIAZEPAM 5 MG/ML 1 ML SYR IVP PRN (13:36)
[2018-03-07] MEDS ORDERED: ONDANSETRON 4 MG/2 ML VIAL IVP PRN ×3 (13:36→19:13)
[2018-03-07] MEDS ORDERED: LR 500 ML IV PRN ×2 (13:36→19:13)
[2018-03-07] MEDS ORDERED: LACTULOSE 20 GM/30 ML UDCUP PO PRN (13:55)
[2018-03-07] MEDS ORDERED: POLYETHYLENE GLYCOL 3350 17 GM PKT PO PRN (13:55)
[2018-03-07] MEDS ORDERED: diphenhydrAMINE 25 MG CAP PO PRN (13:55)
[2018-03-07] MEDS ORDERED: guaiFENesin 600 MG TAB.ER PO PRN (13:55)
[2018-03-07] MEDS ORDERED: MAGNESIUM HYDROXIDE 30 ML UDCUP PO PRN (13:55)
[2018-03-07] MEDS ORDERED: BISACODYL 10 MG SUPP PR PRN (13:55)
[2018-03-07] MEDS ORDERED: ONDANSETRON DISINTEGRATING 4 MG TAB PO PRN (13:55)
[2018-03-07] MEDS ORDERED: ACETAMINOPHEN 500 MG TAB PO SCH (14:00)
[2018-03-07] MEDS ORDERED: ONDANSETRON 4 MG/2 ML VIAL ONE (14:08)
[2018-03-07] MEDS ORDERED: SUGAMMADEX SODIUM 200 MG/2 ML VIAL IVP ONE (14:08)
[2018-03-07] MEDS ORDERED: PROPOFOL 200 MG/20 ML VIAL ONE (14:46)
[2018-03-07] MEDS ORDERED: MIDAZOLAM 2 MG/2 ML VIAL ONE (15:23)
--- NOTE | 2018-03-07 15:24 | PDMN ---
Medical Necessity Medical necessity: CPT 51028 lum/lami IP only procedure
[2018-03-07] MEDS ORDERED: ceFAZolin 1 GM VIAL ONE (16:13)
--- NOTE | 2018-03-07 16:24 | PDCONSULT ---
Tape Cutting Machine Operator Note: Intraoperative event: Patient was intubated easily with Glidescope due to limited neck flexion and extension. Breaths sounds equal and bilateral. ETT taped at 23 cm at the lips. Bilateral bite blocks placed. Patient flipped prone carefully. Surgery proceded uneventfully for approximately 2 hours, during which the patient ventilation was easily achieved, volume control, tidal volumes of 500ml with rr of 10/min. Around 14:20 I started noticing a leak around the ETT and gas was easily smelled around. Cuff was working. I called for assistance and 2 of my colleagues showed up. While one person was hand ventilating the patient, we lifted the patient head from the Prone[place] pillow and check position of the tube with fiberoptic. The tube was in the trachea but well above the sheila. I deflated the cuff and tried to manually advance the tube deeper in the trachea. The tube seemed to coil in the mouth and not advance deeper. At this point I did a ETT exchange with the Cook exchanger. That went very smooth and fast. With the new tube, ventilation by hand and machine was easily achieved. The patient was stable throughout the event, on propofol and precedex infusions, hand ventilated on 100%. During the tube exchange I tried to keep the patient head as neutral as possible. The sterile field was not compromised. The rest of the procedure was uneventful. Family was briefed by myself at the end of the surgery.
[2018-03-07] MEDS: BACITRACIN 50,000 UNITS/10 ML SYR IRR ONE ×2 (16:54→17:04)
--- NOTE | 2018-03-07 17:25 | POSTOPPROG ---
<Latosha Hernandez - Last Filed: 03/07/18 19:23> Post Op Note Date of Operation: 03/07/18 Surgeon: Anoop SHAFFER Addendum - Addendum .: S:Patient is currently in PACU, resting with expected postoperative pain. O: NAD, VSS PERRL, EOMI SUAREZ X4 BUE/BLE 5/5= Sensation intact to lt touch Incision c/d/i FLAVIA X 1 A/p 72y/o male s/p L4/5, L5/S1 right sided TLIF/PSF -Optimize pain management -PT/OT -Post op xrays pending -JPx1 -Advance diet as tolerated -DVT prophx: TEDs, SCDs, Lovenox okay POD1 -Please notify NS with any change in neuro/motor exam <Clarita Gill - Last Filed: 03/08/18 10:05> Post Op Note Date of Operation: 03/08/18 Surgeon: Clarita Gill Pollution Control Chemist: CESIA Gill PAC Anesthesia: GET(General Endotracheal) Pre-op Diagnosis: Lumbar Stenosis Post-op Diagnosis: Lumbar Stenosis Indication: Lumbar Stenosis Procedure: L4/5, L5/S1 right sided TLIF/PSF Inf/Abcess present in the surg proc area at time of surgery?: No EBL: 150cc Drains: Efraín Ramsay
[2018-03-07] MEDS ORDERED: WATER FOR INJ.,BACTERIOSTATIC 30 ML MDV ONE (17:41)
[2018-03-07] MEDS ORDERED: DEXAMETHASONE 4 MG/ML VIAL IVP PRN (19:13)
[2018-03-07] MEDS ORDERED: HYDROmorphONE/DILAUDID 2 MG/ML INJ IVP PRN (19:13)
--- NOTE | 2018-03-07 19:16 | POSTANESTH ---
Post Anesthetic Evaluation Cardiovascular Status: Normal, Stable, Similar to Pre-Op Cond Respiratory Status: Normal, Stable, Similar to Pre-op Cond. Level of Consciousness/Mental Status: Mildly Sleepy, Arousable Pain Control: Adequate, Prn Tx Ordered Nausea/Vomiting Control: Adequate, Prn Tx Ordered Complications Possibly Related to Anesthesia: None Noted
--- NOTE | 2018-03-07 20:34 | GOP ---
DATE OF OPERATION: 03/07/2018 SURGEON: Anoop Foreman MD BIOMEDICAL ENGINEERING TECHNOLOGIST: DENISE Galan. ANESTHESIA: General. PREOPERATIVE DIAGNOSIS: 1. L4-L5 grade 1 spondylolisthesis with severe spinal stenosis and an associated synovial cyst. 2. L5-S1 spondylosis. 3. Lower extremity radiculopathy. 4. Lower extremity weakness. 5. Treatment refractory to nonoperative intervention. POSTOPERATIVE DIAGNOSIS: 1. L4-L5 grade 1 spondylolisthesis with severe spinal stenosis and associated synovial cyst. 2. L5-S1 spondylosis. 3. Lower extremity radiculopathy. 4. Lower extremity weakness. 5. Treatment refractory to nonoperative intervention. PROCEDURE PERFORMED: 1. Posterior arthrodesis with approach to L4, L5, and S1. 2. Posterolateral fusion with bilateral pedicle screw placement into L4, L5, and S1 from the DataNitrora 4.75 system. 3. Decompressive laminectomy with bilateral medial facetectomies and synovial cyst resection L4-L5 and L5-S1. 4. Right-sided L4-5 and L5-S1 aggressive facetectomy. 5. Right-sided L4-5 transforaminal lumbar interbody fusion with a 10 x 28 mm titanium PEEK Elevate cage filled with morselized autograft and allograft. 6. Right-sided L5-S1 transforaminal lumbar interbody fusion with 7 x 26 mm titanium coated PEEK cage filled with morselized autograft and allograft. 7. Posterolateral fusion on the left between L4 and S1 with morselized autograft and allograft. 8. Use of intraoperative 3D Stealth navigation. 9. Usage of intraoperative fluoroscopy, less than 1 hour physician time. 10. Use of neuromonitoring. 11. Use of operating microscope. 12. Injection of preservative-free intrathecal narcotics. FINDINGS: per imaging SPECIMENS: None. ESTIMATED BLOOD LOSS: 150 mL. INDICATIONS: The patient is a very pleasant gentleman who unfortunately suffers from both cervical myelopathy and lumbar spondylosis. He had evidence of severe spinal stenosis and underwent cervical surgery. He also presented with worsening lower extremity symptoms. After discussion of the risks, benefits, and treatment alternatives, we decided to proceed forth with the surgery as described above. DESCRIPTION OF PROCEDURE: The patient was brought to the operating theater and underwent general endotracheal anesthesia without complications. He had Venodynes, INGRID hose, and the appropriate lines placed by Anesthesia. He was flipped prone on a Efraín table. All the bony prominences were inspected and padded. The lower lumbar region was prepped and draped in the usual sterile surgical fashion. A time-out was completed per protocol, and the patient received antibiotics within 1 hour of incision. Using lateral fluoroscopy and spinal needle, we picked our entry point to the L4 through S1 levels. This was marked in the midline. The incision was infiltrated with Marcaine with epinephrine. The incision was taken with the scalpel blade and then, using monopolar, taken down the midline to the lumbodorsal fascia. A subperiosteal dissection carried to the transverse process of L4, L5, and S1 bilaterally. Care was taken to preserve the bilateral L3-4 facet joint. Deep retractors were placed to maintain our exposure. We confirmed our level using lateral fluoroscopy. We attached the 3D Stealth navigation clamp to the spinous process of L5 and completed a 3D Stealth navigation spin. Using 3D Stealth navigation, we placed the packing machine pilot can router holes for the bilateral pedicle screws in L4, L5, and S1. All holes were manually palpated with no evidence of any cortical breaches. We then tapped and placed 6.5 x 50 mm screws bilaterally in L4, 6.5 x 60 mm screws on the left at L5 and S1, and 6.5 x 55 mm screw on the right L5 and S1 from DataNitrora 4.75 system. Another 3D Stealth navigation spin demonstrated placement of the hardware. At this point, the microscope was brought into the field to assist with microscopic dissection and to maintain illumination and magnification. Using a combination of the bur tip on the drill bit, Kerrison punches, and Leksell rongeur, we completed a decompressive laminectomy with bilateral medial facetectomies at L4-L5 and L5-S1. He also had a synovial cyst which was resected on the right side. We then completed our aggressive facetectomies on the right side of L4-5 and L5-S1. We then moved down to the L5-S1 level where we distracted the interspace. At this point, Anesthesia noted that the patient' s endotracheal cuff was leaking. We then spent approximately 35 to 45 minutes, at which point we had to pause the surgery, and he underwent replacement of the endotracheal tube in the prone position without any complications or issues. Once we were satisfied, we then continued with the surgery. We retracted the thecal sac medially and completed a right-sided L5-S1 diskectomy. We prepared the cartilaginous endplates and measured the interbody space. We then placed a 7 x 26 mm titanium coated PEEK cage filled with morselized autograft and allograft anteriorly and toward the midline. We packed additional morcellized autograft in the disk space for the interbody fusion. We let down the distraction and moved up to the L4-5 level, where we distracted the L4-5 level and completed a right-sided L4-5 diskectomy. We prepared the cartilaginous endplates and measured the interbody space. We then placed a 10 x 28 mm titanium PEEK Elevate cage filled with morselized autograft and allograft anteriorly and toward the midline. We packed additional morcellized autograft in the disk space for the interbody fusion. We let down the distraction and decorticated bone on the left side between L4 and S1 for the posterolateral fusion. We placed 2 lordotic rods into the heads of the screws between L4 and S1 and secured them with cap screws, which were tightened per the parquet floor layer's helper's setting. The wound was irrigated copiously with bacitracin irrigation. We injected preservative-free intrathecal narcotics. We then placed morselized autograft and allograft on the left side between L4 and S1 for the posterolateral fusion. A drain was left in the subfascial space. The wound was then closed in multiple layers using Vicryl sutures for the deep layers and Dermabond for the skin. The patient's wounds were dressed sterilely. He still asleep at time of this dictation, but there were no complications and no noted changes on neuromonitoring throughout the procedure. The use of the PA was crucial to retracting and protecting critical structures intraoperatively. COMPLICATIONS: None. /[id number]/MODL MTDD
--- NOTE | 2018-03-07 21:11 | POSTOPPROG ---
Post Op Note Date of Operation: 03/07/18 Surgeon: Nelda Contreras Anesthesia: GET(General Endotracheal) Pre-op Diagnosis: gross hematuria Post-op Diagnosis: gross hematuria, clark malposition, BPH Indication: gross hematuria Procedure: cystoscopy, difficulty clark catheter placement Findings: gross hematuia Inf/Abcess present in the surg proc area at time of surgery?: No EBL: Minimal Complications: none Drains: Other (clark)
[2018-03-07] MEDS: FAMOTIDINE 20 MG TAB PO SCH (22:12)
[2018-03-07] MEDS: ACETAMINOPHEN 500 MG TAB PO SCH ×2 (22:14)
[2018-03-07] MEDS: METHOCARBAMOL 750 MG TAB PO SCH ×2 (22:26→22:32)
[2018-03-07] MEDS: NS 1,000 ML IV SCH (22:34)
[2018-03-07] MEDS: SENNOSIDES/DOCUSATE SODIUM TAB PO SCH (22:35)
[2018-03-07] MEDS: METOPROLOL TARTRATE 25 MG TAB PO SCH (22:36)
[2018-03-08] MEDS ORDERED: CARBIDOPA/LEVODOPA 25 MG/100 MG TAB PO SCH
[2018-03-08] MEDS: METOPROLOL TARTRATE 25 MG TAB PO SCH ×4 (00:17→23:36)
[2018-03-08] MEDS: ceFAZolin 2 GM/DEXTROSE 100 ML IV SCH ×2 (00:18→08:01)
[2018-03-08] MEDS: ACETAMINOPHEN 500 MG TAB PO SCH ×3 (06:15→23:36)
--- NOTE | 2018-03-08 07:17 | GOP ---
DATE OF OPERATION: 03/07/2018 SURGEON: Nelda Contreras MD PREOPERATIVE DIAGNOSIS: Gross hematuria. POSTOPERATIVE DIAGNOSIS: Gross hematuria, along with Clark malposition. PROCEDURE PERFORMED: FINDINGS: Gross hematuria. Difficult visualization due to the hematuria in the urethra as well as in the bladder, but successful placement of a Clark catheter over wire. INDICATIONS: The patient had just finished a procedure with Neurosurgery, and blood was noted in the Clark catheter. Urology was called to the room and the patient was still intubated. The clark did appear to be externalized more than would be expected, indicating there may have been a clark malposition w placement. DESCRIPTION OF PROCEDURE: The existing fole was removed, there was significant clot and blood in the clark and in the tubing. The patient's genitalia was draped and prepped in the standard surgical fashion with Betadine. A flexible cystoscope was advanced into the urethral meatus and into the bladder. There was quite a bit of gross hematuria. It made visualization very difficult, in the prostatic urethra as well as in the bladder. I was able to advance a wire through the scope and then placed an 18-[place] tip catheter over a wire. There was return of red but thin urine at the end of the procedure. Clark was connected to a StatLock and to a collection bag. My portion of the procedure was complete and he was then awoken from anesthesia. He will leave the Clark catheter in place for 5 days, and I do recommend either myself or the urologist who did his prior TURP, do an official cystoscopy in the office once the bleeding has subsided, to verify the cause of the hematuria, which I do suspect with a malpositioned Clark, but thorough evaluation of the bladder is indicated.. /[id number]/MODL MTDD
[2018-03-08] MEDS: SENNOSIDES/DOCUSATE SODIUM TAB PO SCH ×3 (08:02→21:17)
[2018-03-08] MEDS: METHOCARBAMOL 750 MG TAB PO SCH ×4 (08:02→21:16)
[2018-03-08] MEDS: FAMOTIDINE 20 MG TAB PO SCH ×2 (08:08→21:18)
--- NOTE | 2018-03-08 10:00 | SOAPPROG ---
Downtime Inpatient Late Entry LUC Note: I met with the patient this morning. He is doing well with minimal pain and legs feels improved. Will mobilize with therapies today. All questions answered. Appreciate Urology assistance in OR yesterday...explained to patient that he will keep his clark for a week and follow-up with them as an outpatient in 1 week.
--- NOTE | 2018-03-08 10:07 | NEUSURGPN ---
Assessment/Plan: A/p 72y/o male s/p L4/5, L5/S1 right sided TLIF/PSF POD1 -Optimize pain management -PT/OT -Post op xrays pending -JPx1, continue today -Advance diet as tolerated -Continue Mejia per urology, keep for 1 week and follow up as an outpatient -DVT prophx: TEDs, SCDs, Lovenox okay POD1 -Please notify NS with any change in neuro/motor exam Subjective: Denies any new leg pain, numbness, tingling or weakness. Pain tolerable Objective: NAD A&Ox3 MAEx4 5/5 and equal in BUE and BLE. Incision c/d/i Catheter Insertion Date: 03/07/18 - Physician Patient Seen by DrShanna: Kellen Neurosurgery Physical Exam - Vitals, I&O, Labs I and O 03/07/18 03/08/18 03/09/18 05:59 05:59 05:59 Intake Total 2070 Output Total 1665 Balance 405 Weight 78.471 kg Intake: Oral (ml) 510 IV Intake (ml) 950 IV Infused (ml) 610 Ns 1,000 ml @ 75 mls/hr 510 IV CONT JOSE M Rx#: [id number] ceFAZolin 2 GM/DEXTROSE 100 100 ml @ 200 mls/hr IV Q8H JOSE M Rx#:[id number] Output: Urine (ml) 1170 Catheter 1170 Estimated Blood Loss (ml) 200 FLAVIA Drain Output (ml) 295 Back Efraín Ramsay 295 Other: Intake Quantity Yes Sufficient Bladder Scan Volume (ml) Catheter 101 Vital Signs Temp Pulse Resp BP Pulse Ox 36.3 C 68 16 100/70 95 03/08/18 07:53 03/08/18 08:02 03/08/18 07:53 03/08/18 08:02 03/08/18 07:53 Laboratory Results 03/07/18 18:23 ICD10 Worksheet Patient Problems: Problems Problem Status Onset Acute blood loss anemia Acute CAD in [place] artery Acute Chest pain Acute S/P CABG x 2 Acute ~06/12/17 S/P ablation of atrial fibrillation Acute TIA (transient ischemic attack) Acute chronic disease mgmt/transitional care Acute
[2018-03-08] MEDS: oxyCODONE IR 5 MG TAB PO PRN ×3 (10:52→21:17)
[2018-03-08] MEDS: NS 1,000 ML IV SCH (13:26)
[2018-03-08] MEDS: ENOXAPARIN 40 MG/0.4 ML SYR SC SCH (16:37)
--- NOTE | 2018-03-08 17:19 | ASMTCMCOM ---
CM Note CM Note Notes: Pt had planned back surgery, resides with spouse. Pt to d/c with [facility] PT/OT rec home care, CM to follow up with pt about this rec. Date Signed: 03/08/2018 05:18 PM Electronically Signed By:CHOCO Arenas
--- NOTE | 2018-03-08 19:38 | SOAPPROG ---
SOAP Progress Note Assessment/Plan: Assessment: Gross hematuria, now resolved Plan: Clark for at least 5 days to dependent drainage. Place new stat lock so clark not on tension. Irrigate clark PRN clots. Cystoscopy in my clinic next week for eval of gross hematuria. Urologist who did his TURP in [place], he does not want to drive there. 03/08/18 19:39 Subjective: Urine cleared up over night. Objective: Vital Signs Temp Pulse Resp BP Pulse Ox 36.4 C 70 16 96/50 L 95 03/08/18 16:00 03/08/18 16:24 03/08/18 16:00 03/08/18 16:24 03/08/18 16:00 Laboratory Results 03/07/18 18:23 03/07/18 03/08/18 03/09/18 05:59 05:59 05:59 Intake Total 2070 5520 Output Total 1665 845 Balance 405 4675 Gen NAD urine cleared up over night, Clark in stat lock with too much tension. ICD10 Worksheet Patient Problems: Problems Problem Status Onset Acute blood loss anemia Acute CAD in [place] artery Acute Chest pain Acute S/P CABG x 2 Acute ~06/12/17 S/P ablation of atrial fibrillation Acute TIA (transient ischemic attack) Acute chronic disease mgmt/transitional care Acute
[2018-03-08] MEDS: CARBIDOPA/LEVODOPA 25 MG/100 MG TAB PO SCH (23:35)
[2018-03-09] MEDS: oxyCODONE IR 5 MG TAB PO PRN ×3 (02:24→12:58)
[2018-03-09] MEDS: METHOCARBAMOL 750 MG TAB PO SCH ×2 (06:08→12:59)
[2018-03-09] MEDS: ACETAMINOPHEN 500 MG TAB PO SCH ×2 (06:09→15:01)
[2018-03-09] MEDS: ENOXAPARIN 40 MG/0.4 ML SYR SC SCH (08:48)
[2018-03-09] MEDS: METOPROLOL TARTRATE 25 MG TAB PO SCH (08:51)
[2018-03-09] MEDS: FAMOTIDINE 20 MG TAB PO SCH (08:52)
[2018-03-09] MEDS: SENNOSIDES/DOCUSATE SODIUM TAB PO SCH ×2 (08:52→09:12)
[2018-03-09] MEDS ORDERED: MAGNESIUM SULF 1 GM/DEXTROSE 100 ML IV SCH (09:00)
--- NOTE | 2018-03-09 09:08 | SOAPPROG ---
SOAP Progress Note Assessment/Plan: Assessment: 72 yo M POD #2 L4-S1 TLIF Plan: neuro: stable and doing well PT/OT lso brace when out of bed post op x-rays still pending try to dc home today scd/vee/lovenox for dvt prophylaxis please call with neuro changes 03/09/18 09:05 Subjective: back pain improving, no leg pain, no weakness. Objective: Vital Signs Temp Pulse Resp BP Pulse Ox 36.6 C 61 16 108/58 L 100 03/09/18 08:00 03/09/18 08:51 03/09/18 08:00 03/09/18 08:51 03/09/18 08:00 Laboratory Results 03/07/18 18:23 03/08/18 03/09/18 03/10/18 05:59 05:59 04:59 Intake Total 2070 6220 Output Total 1665 2500 1000 Balance 405 3720 -1000 AAOX4, +FC PERRL, EOMI, no facial droop 5/5 + light touch C/D/I ICD10 Worksheet Patient Problems: Problems Problem Status Onset Acute blood loss anemia Acute CAD in [place] artery Acute Chest pain Acute S/P CABG x 2 Acute ~06/12/17 S/P ablation of atrial fibrillation Acute TIA (transient ischemic attack) Acute chronic disease mgmt/transitional care Acute
--- NOTE | 2018-03-09 09:24 | PDIAF ---
- Diagnosis Code Status: Full Code - Medication Management Discharge Medications: electronically signed and located in the Home Medication List. PICC Care - Routine: N/A - Orders Services needed: Physical Therapy, Occupational Therapy Isolation Type: None Diet Recommendation: no restrictions on diet Diet Texture: Regular Texture Diet Mejia: Yes Additional Instructions: discharge with lumbar fusion post op instructions follow up with Dr Foreman in 2 weeks LSO brace when out of bed - Follow Up Care Current Providers and Referrals: Doctor Not,On Staff, MD [Primary Care Provider] -
--- NOTE | 2018-03-09 09:36 | ASMTDCNOTE ---
Case Management Discharge Discharge Order Complete? Answers: Yes Patient to Obtain Answers: Independently Medications Transportation Arranged Answers: Family/Friends Faxed Final Orders Answers: Yes Family Notified Answers: Yes Discharge Comments Notes: Patient discharged home with . HC will follow for PT/OT. Orders sent Date Signed: 03/09/2018 09:36 AM Electronically Signed By:Enedina Arceo RN
--- NOTE | 2018-03-09 09:36 | ASMTLACE ---
LACE Length of stay for Answers: 2 days current admission Acuity / Level of Answers: Yes Care: Did the patient have an inpatient admission? Comorbidities - select Answers: Opioid dependence all that apply / Chronic pain Other Notes: AFib # of Emergency department Answers: 3-4 visits in the last 6 months Score: 13 Date Signed: 03/09/2018 09:35 AM Electronically Signed By:Enedina Arceo RN
[2018-03-09 12:02] VITALS: BP 93/44
[2018-03-09] MEDS: CARBIDOPA/LEVODOPA 25 MG/100 MG TAB PO SCH (12:59)
== END 2018-03-09 15:43 | disposition home health service (06) | DRG 455 ==
LOC: F3N 10:33
PROVIDERS: ADMIT Neurological Surgery; ATTEND Neurological Surgery
DX: M43.16 Spondylolisthesis, lumbar region (principal); M48.061 Spinal stenosis, lumbar region without neurogenic claudication; M71.30 Other bursal cyst, unspecified site; M47.26 Other spondylosis with radiculopathy, lumbar region; R31.0 Gross hematuria
CPT/HCPCS: 97116-GP; 97162-GP; 97166-GO; 97530-GP; 97535-GO; C1713; C1769; G8978-GP-CI; G8978-GP-CJ; G8979-GP-CI; G8980-GP-CI; G8987-GO-CJ; G8988-GO-CI; J0171; J0690; J1170; J1650; J2250; J2274; J2405; J2704; J3475; P9041

== ENCOUNTER → 2018-04-28 | Outpatient (CLI) | payer OTHER | LOC: FIMAGING 14:54 | PROVIDERS: ATTEND Physician Assistant | DX: M54.2 Cervicalgia (principal); Z98.1 Arthrodesis status ==

== ENCOUNTER → 2018-05-14 | Outpatient (CLI) | payer OTHER | LOC: FIMAGING 15:44 | PROVIDERS: ATTEND Physician Assistant Surgical | DX: M43.16 Spondylolisthesis, lumbar region (principal); Z98.1 Arthrodesis status ==

== ENCOUNTER → 2018-05-31 | Outpatient (CLI) | payer OTHER | LOC: FIMAGING 19:20 | PROVIDERS: ATTEND Nurse Practitioner | DX: M96.842 Postprocedural seroma of a musculoskeletal structure following a musculoskeletal system procedure (principal); Z98.1 Arthrodesis status ==

== ENCOUNTER → 2018-07-17 | Outpatient (CLI) | payer OTHER | LOC: FIMAGING 17:32 | PROVIDERS: ATTEND Nurse Practitioner | DX: Z98.1 Arthrodesis status (principal) ==

== ENCOUNTER → 2018-09-06 | Outpatient (CLI) | payer OTHER | LOC: FIMAGING 11:39 | PROVIDERS: ATTEND Neurological Surgery | DX: M50.31 Other cervical disc degeneration, high cervical region (principal); M50.321 Other cervical disc degeneration at C4-C5 level; M50.322 Other cervical disc degeneration at C5-C6 level; M50.323 Other cervical disc degeneration at C6-C7 level; M99.71 Connective tissue and disc stenosis of intervertebral foramina of cervical region; M48.02 Spinal stenosis, cervical region ==

== ENCOUNTER → 2018-09-13 | Outpatient (CLI) | payer OTHER | LOC: FIMAGING 13:23 | PROVIDERS: ATTEND Nurse Practitioner | DX: Z98.1 Arthrodesis status (principal) ==